=== PATIENT | female | born 1955 | race Caucasian/White ===

== ENCOUNTER → 2017-11-29 21:55 | Outpatient (CLI) | payer BC, SELFPAY ==
[2017-12-06 08:56] LABS: HPV APTIMA, High Risk Negative (Negative)
== END ==
PROVIDERS: Visit Provider Obstetrics & Gynecology
DX: Z12.4 Encounter for screening for malignant neoplasm of cervix (principal)
CPT/HCPCS: 88175; G0145

== ENCOUNTER → 2018-01-10 07:52 | Outpatient (CLI) | payer BC, SELFPAY | PROVIDERS: Family Provider Family Medicine; PCP Family Medicine; Visit Provider Obstetrics & Gynecology | DX: Z12.31 Encounter for screening mammogram for malignant neoplasm of breast (principal) | CPT/HCPCS: 77063; 77067 ==

== ENCOUNTER 2018-05-03 15:12 | Emergency (ER) | payer BC, SELFPAY ==
[2018-05-03 15:13] VITALS: BP 124/82; PULSE 87; RESP 16; TEMP 36.3; O2SAT 96; BMI 26.5
--- NOTE | 2018-05-03 15:27 | VDLE_ITS ---
Reason For Study: LEG PAIN RIGHT LEFT CFV is compressible, spontaneous, phasic, GSV is normal. competent and demonstrates normal CFV is compressible, spontaneous, phasic, augmentation. competent, and demonstrates normal Procedure augmentation. Exam performed portable in ED. FV is compressible, spontaneous, phasic, A preliminary report was called and/or faxed competent and demonstrates normal to Dr. Golden. augmentation. POP V is compressible, spontaneous, phasic, competent and demonstrates normal augmentation. T/P Trunk is compressible. PTV is compressible. Acute deep vein thrombosis is noted in the left peroneal vein. Interpretation Summary Left greater saphenous vein appears patent and compressible segmentally. Acute deep venous thrombosis left peroneal vein. No evidence for proximal progression. Normal flow patterns right common femoral vein Ordering Physician: Perico Golden Referring Physician: KARI Treviño M.D. Performed By: Anabella Sheikh RVT
--- NOTE | 2018-05-03 15:31 | ED.DCSUM_ITS ---
- ER Visit Summary Date of Service: 05/03/18 Chief Complaint: Chronic left calf pain History of Present Illness: The patient is a 62 F anxiety and osteoporosis. Patient underwent left shoulder arthroscopic and orthopedic surgery last on 1220. She is been doing well. Today develops any calf pain. She really does not notice any swelling. She denies any fever or redness. Patient denies any chest pain or shortness of breath. She has never had a DVT or PE before. Patient denies any trauma to the leg. Physical Examination: Well-appearing older female. Vital signs stable vitals afebrile. She does not look septic or toxic. She is in no acute distress. HEENT exam unremarkable. Neck nontender. Lungs clear to auscultation bilaterally. Heart regular rate and rhythm no murmur. Rate about 90. Abdomen soft nontender. Normal bowel sounds no peritoneal signs. Extremities moves all 4. Calves no edema. No cords. Mild tenderness to her left calf. DP pulse intact. Full range of motion to the left hip, knee and ankle. Left foot has 5 out of 5 dorsi plantar flexion. Normal sensation. Palpable DP pulse. Neurologically she is awake alert with no focal deficits. Test Results: Noninvasive study left lower extremity show a DVT left peroneal vein below the knee. Emergency Department Course and Treatment: I discussed with the patient and also with her orthopedic surgeon Dr. Krystle Ewing and she will be treated conservatively with 1 full dose aspirin a day. And follow-up ultrasounds. Patient is comfortable with that plan. Treatment Plan: Daily adult aspirin. And follow-up repeat serial ultrasounds. She has appointment with her orthopedic surgeon's office on Tuesday and she will call them tomorrow. Disposition: Discharge Impression: Left lower extremity calf pain secondary to a left peroneal vein below the knee DVT This note was generated with [employer] dictation software. It may contain incorrect words, spelling, and punctuation that were not noted in review of the chart prior to signing ED Disposition - Plan for ED Patient: Chief Complaint: Lower Extremity Injury Referrals: Kobe Treviño III, MD [Primary Care Provider] -
--- NOTE | 2018-05-03 17:05 | DCINST.ED_ITS ---
ED Disposition - Plan for ED Patient: Disposition: Home or Assisted Living Chief Complaint: Lower Extremity Injury Instructions: ED DVT Additional Instructions: Take 1 adult full dose aspirin 325 mg a day starting tomorrow. Call and follow-up with your orthopedic physician's office at the [facility] tomorrow. Return to the ER if chest pain or shortness of breath. They will need to do serial ultrasounds of your leg to see if this is improving or getting worse.
[2018-05-03] MEDS: Aspirin 325 MG Tablet PO (17:10)
== END 2018-05-03 17:17 | disposition home or self-care (01) ==
PROVIDERS: Emergency Provider Emergency Medicine; Family Provider Family Medicine; PCP Family Medicine
DX: I82.4Z2 Acute embolism and thrombosis of unspecified deep veins of left distal lower extremity (principal); M79.662 Pain in left lower leg; Z98.890 Other specified postprocedural states; F41.9 Anxiety disorder, unspecified; M81.0 Age-related osteoporosis without current pathological fracture; Z79.899 Other long term (current) drug therapy
CPT/HCPCS: 93971; 99283

== ENCOUNTER 2018-05-06 22:27 | Emergency (ER) | payer BC, SELFPAY ==
[2018-05-06 22:28] VITALS: BP 140/87; PULSE 97; RESP 20; TEMP 36.8; O2SAT 97; BMI 27.3
[2018-05-06 22:31] VITALS: PULSE 98; RESP 18; TEMP 36.8; O2SAT 99
--- NOTE | 2018-05-06 22:35 | EKG12_ITS ---
Test Reason : CP Blood Pressure : / mmHG Vent. Rate : 094 BPM Atrial Rate : 094 BPM P-R Int : 142 ms QRS Dur : 078 ms QT Int : 360 ms P-R-T Axes : 071 045 048 degrees QTc Int : 450 ms Sinus rhythm with occasional Premature ventricular complexes Otherwise normal ECG Confirmed by SACHI DURHAM, LINDSAY ([id number]), editor producer JV SCHULZ ([id number]) on 05/08/2018 12:47:33 PM Referred By: LESVIA Confirmed By:LINDSAY KARIMI MD
--- NOTE | 2018-05-06 22:35 | CT_ITS ---
STUDY: CTA CHEST REASON FOR EXAM: Female, 62 years old. Shortness of breath. Chest pain. Postop left shoulder surgery 1. No. Patient was diagnosed with left lower extremity DVT on 05/03/2018. Elevated blood pressure. History of melanoma. RADIATION DOSAGE (If Supplied By Facility): CTDIvol = ( 9.47 ) mGy, DLP = ( 442.51 ) mGycm TECHNIQUE: The examination was performed with the intravenous administration of 75ML ml of Isovue 370 contrast material. Post-processing of the angiographic images was performed, with multiplanar reformation, but without 3D reconstruction. Individualized dose optimization techniques were used for this CT. COMPARISON: None. FINDINGS: Normal enhancement of the main pulmonary artery and right and left pulmonary arteries. Normal enhancement of the bilateral peripheral pulmonary arteries. There are pulmonary emboli in bilateral lower lobe and upper lobe pulmonary arterial branches. There is no reflux of contrast enhanced blood into the inferior vena cava to suggest presence of right ventricular strain. Normal thoracic aorta and visualized great vessels. There is no demonstrated aortic dissection. Normal heart and pericardium. Normal mediastinum. Normal hilar regions. Normal visualized trachea and bronchi. The lungs are well expanded. There are minimal fibrotic changes in the lung apices and there is minimal fibrosis or atelectasis in the lung bases.. There are no demonstrated acute pulmonary infiltrates. As seen on series 2, axial image 100, there is a 3.3 mm noncalcified right lower lobe lung nodule. Normal pleura. Normal chest wall structures. There are degenerative changes of thoracic spine. There is a small hiatal hernia. CT/CTA Chest W/WO Contrast IMPRESSION: Bilateral lower lobe and upper lobe pulmonary emboli. No radiographic evidence for right ventricular strain. No evidence for aortic aneurysm or aortic dissection. No demonstrated acute pulmonary infiltrate. 3.3 mm noncalcified right lower lobe lung nodule. Based on Fleischner Society Guidelines, suggested follow-up for a lung nodule of less than or equal to 4 mm is as follows: Low risk patients: No follow-up needed. High risk patients: Follow-up CT Chest at 12 months. If no change, no further imaging needed. N.B. : The above information has been verbally conveyed by Aristides Atwood MD to Nurse AKASH Bell, on 05/07/2018 01:01:43 (ET). Electronically Signed: Aristides Atwood MD at 1:04 EST , Service support ,
--- NOTE | 2018-05-06 22:39 | ED.VISSUMM ---
- ER Visit Summary Date of Service: 05/06/18 Chief Complaint: Approximate 1 hour prior to presentation patient complains of a sensation in her chest and shortness of breath History of Present Illness: The patient is a 62 F who is status post arthroscopic left shoulder surgery who was seen on April 13 and diagnosed with a DVT left lower extremity. The DVT was in the left peroneal vein. She is scheduled for ultrasound on Tuesday to determine if there is propagation. He is on no anticoagulant. She is on no medication for any medical problems. She denies fever, chills night sweats. She denies any GI or symptoms. Physical Examination: Vital signs noted and blood pressure is elevated 140/87. Rest rate is 20. Heart rate is 97. Saturation is 97% on room air and temperature is 98.2. Patient appears in no respiratory distress. HEENT exam is unremarkable. Heart is regular without murmur, gallop or rub. S1 and S2 are normal. Lungs are clear to auscultation with good movement of air bilaterally. Abdomen is soft nontender. Bowel sounds are present normal. There is pain to palpation left calf. Neuro exam is nonfocal. Test Results: EKG reveals sinus rhythm rate of 94 with occasional premature ventricular beats. There is no evidence of right heart strain. Basic metabolic panel is unremarkable. CTA of the chest reveals bilateral segmental lobar embolus. Emergency Department Course and Treatment: IV was established. BMP was obtained to assess renal function since she has had no recent blood work. She will need a CTA to determine if she has a PE. EKG was obtained. Treatment Plan: Explained to the patient that there are more than 1 treatment options. She could administer Lovenox twice daily for 5 days and start Coumadin versus Xarelto versus Eliquis. She was explained risk benefits of each medication and advantages disadvantages. After explaining her the risk benefits and she elected to take Eliquis. She received her first dose of Eliquis in the department. She was given a prescription for Eliquis 10 mg twice daily for the first 7 days then [address] Hernan Noriega was made aware patient who is covering for Dr. Robert Ewing. Disposition: Discharged home with prescription for Eliquis follow-up with PCP Dr. Kobe Treviño III Impression: Bilateral pulmonary embolus status post left shoulder arthro-scopic surgery. This note was generated with Dragon dictation software. It may contain incorrect words, spelling, and punctuation that were not noted in review of the chart prior to signing ED Disposition - Plan for ED Patient: Disposition: Home or Assisted Living Chief Complaint: Chest Pain Instructions: Discharge Instructions for Pulmonary Embolism Prescriptions: Apixaban [Eliquis] 5 mg PO BID #74 tablet Referrals: Kobe Treviño III, MD [Primary Care Provider] - 1-2 Weeks
[2018-05-06 22:48] LABS: Absolute Lymphocyte Count 2.82 X10^3/ul (0.83-4.51); Absolute Neutrophil Count 3.7 X10^3/uL (2.0-7.7); Basophil# 0.03 X10^3/uL; Basophil% 0.4 % (0-1); Eosinophil# 0.32 X10^3/uL; Eosinophils% 4.3 % (0-5); Hematocrit 40.7 % (37-47); Hemoglobin 13.7 g/dl (12.0-15.0); Lymphocyte # 2.82 X10^3/ul (4.0); Lymphocyte % 37.7 % (19-41); Mean Corp Hgb Conc 33.7 g/gl (32-36); Mean Corpuscular Hgb 31.2 pg (27.0-32.0); Mean Corpuscular Volume 92.7 fL (81-99); Monocyte# 0.56 X10^3/uL; Monocyte% 7.5 % (0-10); Neutrophil # 3.74 X10^3/uL (2.7-7.7); POSITIVE COUNT NO; POSITIVE DIFFERENTIAL NO; POSITIVE MORPHOLOGY NO; Platelet Count 250 K/mm3 (150-450); RBC Distribution Width CV 12.8 % (11.6-14.6); RBC Distribution Width SD 43.1 fl (35.1-43.9); Red Blood Count 4.39 M/mm3 (4.2-5.4); White Blood Count 7.5 K/mm3 (4.4-11.0)
[2018-05-06 23:08] LABS: Anion Gap 7 (5-15); BUN 15 mg/dL (7-18); BUN/Creat Ratio 19.2 RATIO (10-20); Calcium,Total 8.9 mg/dL (8.5-10.1); Chloride 107 mmol/L (98-107); Creatinine, Serum 0.78 mg/dL (0.55-1.02); EST Glomerular Filtration Rate 80 mL/min (>60); Est Glom Filt Rate - Afr Amer 96 mL/min (>60); Estimated Creatinine Clearance 57.15 ml/min; Glucose 115 mg/dL (74-106); Potassium 3.7 mmol/L (3.5-5.1); Sodium Level 140 mmol/L (136-145)
[2018-05-06 23:31] VITALS: PULSE 94; TEMP 36.8
[2018-05-06] MEDS: APIXABAN 5 MG TABLET 10 MG PO (23:53)
[2018-05-07 00:56] VITALS: PULSE 90; RESP 18
--- NOTE | 2018-05-07 01:03 | ED.RN ---
Radiologist called with positive PE. Pt has been treated appropriately.
== END 2018-05-07 00:57 | disposition home or self-care (01) ==
PROVIDERS: Emergency Provider Emergency Medicine; Family Provider Family Medicine; PCP Family Medicine
DX: I26.99 Other pulmonary embolism without acute cor pulmonale (principal); Z86.718 Personal history of other venous thrombosis and embolism; Z98.890 Other specified postprocedural states; Z79.82 Long term (current) use of aspirin; Z79.899 Other long term (current) drug therapy
CPT/HCPCS: 71275; 80048; 85025; 93005; 99285; Q9967

== ENCOUNTER 2018-06-27 09:30 | Outpatient (RCR) | payer BC, SELFPAY ==
--- NOTE | 2018-05-15 17:51 | HP.PTEVAL_ITS ---
Patient's Visit Information JAYLEN BRENNER is a 62 year old F referred to Physical Therapy by Robert Ewing MD with a diagnosis of COMPLETE ROTATOR CUFF TEAR OR RUPTURE OF LEFT SHOULDER NOT SPECIFIED. Date of Evaluation: 05/15/18 Physical Therapist: Jatinder Wilson PT, Cert MDT, OCS - Visit Plan Frequency: 2x /Week Duration: 8WEEKS Plan: S/P ARTHROSPIC ,ACROMIOPLASY ,DECOMPRESSION ON 04/27. SEE PROTOCAL FOR PROGRESSON. PROGRESS MARLIN PHASE 1PROM,PHASE 2 AAROM ,PHASE 3 PER MD ORDER - Subjective Findings: This 62 y/o female presents to physical therapy with left shoulder arthrosopic subacromial decompression with acriomioplasty ,debridement on 04/27 at [facility] done Dr Ewing with sling .Patient developed DVT ,PE went to [facility] gave eliquis . Patient seen DR casiano to remove sling. Patient has min surekha n. Patient denies parathesia/tingling. Patient symptoms affect sleeping.Patient is able to drive Patient has limitation with all functional activities and ADL'S above 90 degrees impairs housework tasks, Patient surgery affect QOL and function. 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 SOCAIL: diveroced - Pain Left Shoulder Pain Intensity (Out of 10): 7 Pain Intensity Range: 10 Comment: movevment - Objective POSTURE: rounded shoulders head foward. PALAPTION: unremarkable. INSCION: well approximate. NEURO: intact,denies parathesia/tingling. PROM : shoulder flexion 140 degrees,abduction in scaption 145 degreess, ER 80 degrees,IR S1. MMT: NT SHOULDER ,BICEP/TRICP/WRIST 4/5 - Goals Goal 1:: Patient to be Indepenedant with HEP Goal Time Frame: 8-12 Weeks Goal 2:: Patient to improve AROM shoulder flexion 150 abduction 145 in scapation,ER 90 ,IR L1. to improve function. Goal Time Frame: 8-12 Weeks Goal 3:: Patient increase strength RTC 4/5 DELTOID 4-/5 to improve function ADL's and housework tasks Goal Time Frame: 8-12 Weeks Goal 4:: Patient to improve QUIC DASh SHAMIR score by 5-points to improve QOL. Goal Time Frame: 8-12 Weeks Goal 5:: Patient to improve ADLS' and housework tasks above 90 degrees with min limiations Goal Time Frame: 8-12 Weeks - Rehabilitation Potential Physical Therapy Diagnosis: This patient underwent s/p left shoulder arthroscopic glenohumeral debridement of undersurface RTC and subacromial decompression with acromioplasty with decrease ROM ,strength impairs funtion and ADL'S. Rehabilitation Potential: Good - Anticipated Interventions Patient/Client Instruction: Educate patient on: Condition, Plan of Care For the Purpose of:: To decrease pain, To improve nutrient delivery to tissue, To improve muscle performance and motor function, To improve ability to perform ADL's, To increase tolerance to activity/condition/position, To improve perfo rmance and independence with ADL's, To improve ability of physical actions for home/community/work/leisure, To improve health of tissue, To decrease soft tissue restriction, To increase flexibility/ROM, To improve ability to perform tasks related to life management Therapeutic Exercise to Include: Strength training, Postural training, Flexibilty training, Passive ROM, Active ROM Comment: PHAASE 1 ,PHASE 2 For the Purpose of:: To decrease pain, To increase ROM, To improve muscle performance and motor function, To improve ability to perform ADL's, To increase tolerance to activity/condition/position, To improve performance and independence with ADL's, To improve health of tissue, To decrease soft tissue restriction, To increase flexibility/ROM, To assume or resume ADL's, To improve ability to perform tasks related to life management Cryotherapy (ice pack, ice massage): Yes Thermo therapy (hot pack): Yes For the Purpose of:: To decrease swelling/inflammation, To improve health of tissue, To decrease soft tissue restriction Thank you for the opportunity to evaluate your patient. For Medicare and Medicare HMO plans, please review the plan of care and approve it. It will need to be FAXED BACK to us at [phone] for Medicare purposes. For Medicare only, by signing this I certify the plan of care. Please let me know if there are questions or concerns regarding this plan of care. Physician Signature: Date:
--- NOTE | 2018-08-16 11:09 | HP.PT.NRP ---
HP - Discharge Summary (1) - Patient Information JAYLEN BRENNER was seen in my office for initial evaluation on 05/15/18. The following Plan of Care was established for this patient: Initial Frequency: 2x /Week Initial Duration: 8WEEKS - Anticipated Interventions Patient/Client Instruction: Educate patient on: Condition, Plan of Care For the Purpose of:: To decrease pain, To improve nutrient delivery to tissue, To improve muscle performance and motor function, To improve ability to perform ADL's, To increase tolerance to activity/condition/position, To improve performance and independence with ADL's, To improve ability of physical actions for home/community/work/leisure, To improve health of tissue, To decrease soft tissue restriction, To increase flexibility/ROM, To improve ability to perform tasks related to life management Therapeutic Exercise to Include: Strength training, Postural training, Flexibilty training, Passive ROM, Active ROM For the Purpose of:: To decrease pain, To increase ROM, To improve muscle performance and motor function, To improve ability to perform ADL's, To increase tolerance to activity/condition/position, To improve performance and independence with ADL's, To improve health of tissue, To decrease soft tissue restriction, To increase flexibility/ROM, To assume or resume ADL's, To improve ability to perform tasks related to life management Cryotherapy (ice pack, ice massage): Yes Thermo therapy (hot pack): Yes For the Purpose of:: To decrease swelling/inflammation, To improve health of tissue, To decrease soft tissue restriction This patient was last seen in our office 06/27/18. Pertinent comments regarding their Physical therapy will appear below: Patient seen for PT for left shoulder surgery focusing on phase 1 PROM,progresses ed to phase 2,3 with strengthening. Patient doing well thus is d/c At this point I will be discontinuing this patient from physical therapy. I would be happy to see this patient again in the future if found appropriate by the physician. Thank you! Jatinder Wilson, PT, Cert MDT, OCS
== END 2018-06-27 19:00 | disposition home or self-care (01) ==
LOC: PT 09:30
PROVIDERS: Family Provider Family Medicine; PCP Family Medicine; Referring Provider Orthopaedic Surgery; Visit Provider Orthopaedic Surgery
DX: M75.122 Complete rotator cuff tear or rupture of left shoulder, not specified as traumatic (principal)
CPT/HCPCS: 97110; 97162

== ENCOUNTER → 2018-10-06 | Outpatient (CLI) | payer BC, SELFPAY ==
[2018-10-06 11:59] VITALS: BMI 27.3
== END | disposition home or self-care (01) ==
LOC: LABSPEC 13:28
PROVIDERS: Family Provider Family Medicine; PCP Family Medicine; Referring Provider Obstetrics & Gynecology; Visit Provider Obstetrics & Gynecology
DX: R39.15 Urgency of urination (principal)
CPT/HCPCS: 87086; 87088

== ENCOUNTER → 2018-11-01 | Outpatient (CLI) | payer OTHER, SELFPAY ==
[2018-10-06 11:59] VITALS: BMI 27.3
[2018-11-01 18:49] LABS: HIV - WCH Nonreactive (Nonreactive)
[2018-11-02 08:27] LABS: Hepatitis B Surface Antigen Nonreactive (Nonreactive)
== END | disposition home or self-care (01) ==
PROVIDERS: Family Provider Family Medicine; PCP Family Medicine; Referring Provider Urology; Visit Provider Urology
DX: Z00.00 Encounter for general adult medical examination without abnormal findings (principal)
CPT/HCPCS: 36415; 86703; 87340

== ENCOUNTER → 2019-01-15 | Outpatient (CLI) | payer BC, SELFPAY ==
[2018-10-06 11:59] VITALS: BMI 27.3
--- NOTE | 2019-01-15 07:07 | BI_ITS ---
MAMMOGRAPHY - BILATERAL SCREENING REASON FOR EXAM: Female, 63 years old. Routine annual screening examination. PERTINENT HISTORY: Non-contributory. History of bilateral breast biopsies. TECHNIQUE: Digital bilateral breast dalton (3D mammographic acquisition) in the CC and MLO projections. 2-D mediolateral oblique (MLO) and craniocaudad (CC) views of both breasts were obtained. CAD: Full Field Digital Mammography with Computer Added Detection was performed. COMPARISON: Comparison is made with prior study dated January 10, 2018. FINDINGS: Breast Composition: There are scattered areas of fibroglandular density. There are no dominant masses or suspicious calcifications. Stable well-defined 5.5 mm nodule in the deep mid medial portion of the left breast. This has appearance of a small lymph node. A tissue clip marker is also seen in the central medial portion of the left breast in the small nodule. No other significant abnormalities are identified. There has been no significant change since the prior study. BI/SCREEN MAMM (CAD) W/DALTON BILAT IMPRESSION: Stable bilateral screening mammogram. Yearly follow-up mammogram recommended. (A) ASSESSMENT CATEGORY: BIRADS Category 2: Benign. A letter regarding these results will be sent to the patient by the facility within 30 days. Approximately 10% of breast cancers are not detected by mammography. A normal mammogram should not delay biopsy of a clinically suspicious abnormality. [id number] Electronically Signed: Edward Huang, at 10:50 EDT , Service support ,
== END | disposition home or self-care (01) ==
PROVIDERS: Family Provider Family Medicine; PCP Family Medicine; Referring Provider Obstetrics & Gynecology; Visit Provider Obstetrics & Gynecology
DX: Z12.31 Encounter for screening mammogram for malignant neoplasm of breast (principal)
CPT/HCPCS: 77063; 77067

== ENCOUNTER → 2019-11-12 | Outpatient (CLI) | payer BC, SELFPAY ==
[2018-10-06 11:59] VITALS: BMI 27.3
== END | disposition home or self-care (01) ==
LOC: MTDU 18:00
PROVIDERS: PCP Family Medicine; Referring Provider Family Medicine; Visit Provider Family Medicine
DX: Z20.828 Contact with and (suspected) exposure to other viral communicable diseases (principal)
CPT/HCPCS: 87635; G2023; U0003

== ENCOUNTER → 2020-01-17 | Outpatient (CLI) | payer BC, SELFPAY ==
[2018-10-06 11:59] VITALS: BMI 27.3
[2019-12-27 08:37] VITALS: BMI 27.3
--- NOTE | 2020-01-17 07:01 | BI_ITS ---
MAMMOGRAPHY - BILATERAL SCREENING REASON FOR EXAM: Female, 64 years old. Routine annual screening examination. PERTINENT HISTORY: Non-contributory. Prior bilateral excisional breast biopsies. TECHNIQUE: Digital bilateral breast dalton (3D mammographic acquisition) in the CC and MLO projections. 2-D mediolateral oblique (MLO) and craniocaudad (CC) views of both breasts were obtained. CAD: Full Field Digital Mammography with Computer Added Detection was performed. COMPARISON: Comparison is made with prior study dated 01/15/2019 and 01/10/2018. FINDINGS: Breast Composition: There are scattered areas of fibroglandular density. There are no dominant masses or suspicious calcifications. A tissue clip marker is seen in the central medial aspect of the left breast. Stable 5.5 mm nodular density in the deep mid medial portion of the left breast. The central notch is seen within the. This most likely represents a small lymph node. No other significant abnormalities are identified. There has been no significant change since the prior study. BI/SCREEN MAMM (CAD) W/DALTON BILAT IMPRESSION: Stable bilateral screening mammogram. Yearly follow-up mammogram recommended. (A) ASSESSMENT CATEGORY: BIRADS Category 2: Benign. A letter regarding these results will be sent to the patient by the facility within 30 days. Approximately 10% of breast cancers are not detected by mammography. A normal mammogram should not delay biopsy of a clinically suspicious abnormality. [id number] Electronically Signed: Edward Huang, at 8:05 EDT , Service support ,
[2020-01-17 08:49] LABS: Cholesterol 180 mg/dL (200); Hemoglobin A1c 5.3 % (3.8-5.6); High Density Lipoprotein 71 mg/dL; Triglycerides 118 mg/dL; Very Low Density Lipoprotein 24 mg/dL (5-40)
== END | disposition home or self-care (01) ==
PROVIDERS: Obstetrics & Gynecology; PCP Family Medicine; Referring Provider Obstetrics & Gynecology; Visit Provider Obstetrics & Gynecology
DX: Z12.31 Encounter for screening mammogram for malignant neoplasm of breast (principal); Z01.419 Encounter for gynecological examination (general) (routine) without abnormal findings
CPT/HCPCS: 36415; 77063; 77067; 80061; 83036; 84443

== ENCOUNTER → 2020-02-04 | Outpatient (CLI) | payer BC, SELFPAY ==
[2020-02-04 09:38] VITALS: BMI 27.3
[2020-02-08 04:33] LABS: HPV APTIMA, High Risk Negative (Negative)
== END | disposition home or self-care (01) ==
LOC: LABSPEC 14:34
PROVIDERS: PCP Family Medicine; Referring Provider Obstetrics & Gynecology; Visit Provider Obstetrics & Gynecology
DX: Z12.4 Encounter for screening for malignant neoplasm of cervix (principal)
CPT/HCPCS: 87624; 88175; G0145

== ENCOUNTER → 2020-06-06 14:46 | Outpatient (CLI) | payer BC, SELFPAY ==
[2020-02-04 09:38] VITALS: BMI 27.3
--- NOTE | 2020-06-06 14:52 | US_ITS ---
STUDY: ULTRASOUND OF THE FEMALE PELVIS - COMPLETE REASON FOR EXAM: Female, 64 years old. RT PELVIC PAIN X 1 YEAR TECHNIQUE: Transabdominal TECHNICAL QUALITY: Adequate. COMPARISON: CT of the abdomen and pelvis dated 04/19/2017. FINDINGS: The uterus is retroflexed and is in a midline position. The uterus measures 6.5 x 2.7 x 3.8 cm. Normal uterine cervix. The endometrium measures 2.9 mm in thickness, and is hyperechoic. There is no demonstrated endometrial mass. There is no demonstrated myometrial mass. I.U.D. - The patient does not have an I.U.D. The ovaries are non-visualized. There is no fluid in the cul-de-sac. The pre void volume of the bladder was 333.6 ml. US/Pelvic (Non ) IMPRESSION: Nonvisualization of the ovaries. Within normal limits appearing uterus. Electronically Signed: Cheyenne Melo MD at 15:43 EST Tel , Service support ,
== END ==
PROVIDERS: PCP Family Medicine; Referring Provider Urology; Visit Provider Urology
DX: R10.2 Pelvic and perineal pain (principal)
CPT/HCPCS: 76856

== ENCOUNTER → 2021-02-06 07:38 | Outpatient (CLI) | payer BC, SELFPAY ==
[2020-02-04 09:38] VITALS: BMI 27.3
--- NOTE | 2021-02-06 07:39 | BI_ITS ---
MAMMOGRAPHY - BILATERAL SCREENING REASON FOR EXAM: Female, 65 years old. Routine annual screening examination. PERTINENT HISTORY: Non-contributory. Prior left ultrasound-guided breast biopsy. History of remote bilateral excisional breast biopsies. TECHNIQUE: Digital bilateral breast dalton (3D mammographic acquisition) in the CC and MLO projections. 2-D mediolateral oblique (MLO) and craniocaudad (CC) views of both breasts were obtained. CAD: Full Field Digital Mammography with Computer Added Detection was performed. COMPARISON: Comparison is made with prior study of 01/17/2020 and 01/15/2019. FINDINGS: Breast Composition: There are scattered areas of fibroglandular density. There are no dominant masses or suspicious calcifications. A tissue clip marker is once again seen in the central medial aspect of the left breast. Stable tiny density is seen at the biopsy site. Stable 5 mm well-defined nodule in the deep mid medial portion of the left breast suggestive of a small lymph node. Stable architectural distortion in the upper lateral portion of the right breast most likely at the site of prior excisional biopsy. No other significant abnormalities are identified. There has been no significant change since the prior study. BI/SCRN MAMM (CAD)W/DALTON BILAT IMPRESSION: Stable bilateral screening mammogram. Yearly follow-up mammogram recommended. (A) ASSESSMENT CATEGORY: BIRADS Category 2: Benign. A letter regarding these results will be sent to the patient by the facility within 30 days. Approximately 10% of breast cancers are not detected by mammography. A normal mammogram should not delay biopsy of a clinically suspicious abnormality. [id number] Electronically Signed: Edward Huang MD at 9:03 EDT , Service support ,
== END ==
PROVIDERS: PCP Family Medicine; Referring Provider Obstetrics & Gynecology; Visit Provider Obstetrics & Gynecology
DX: Z12.31 Encounter for screening mammogram for malignant neoplasm of breast (principal)
CPT/HCPCS: 77063; 77067

== ENCOUNTER 2021-07-22 06:25 | Day surgery (SDC) | payer MEDICARE, OTHER, SELFPAY ==
--- NOTE | 2021-07-22 | COLBX_PTH ---
PATIENT: JAYLEN BRENNER LOC: EN U#:[id number] AGE/SX: 66/F ROOM: RE07/22/[address]: Dr. Timi Mckinney DO : [id number] BED: DIS: 07/22/2021 SPEC #: [id number] RECD: 07/22/21 11:14 STATUS: TANYA RODRIGUEZ #: [id number] VENITA: 07/22/21 00:[address]: Timi Mckinney DEPT: SURGICAL PATHOLOGY RECD BY: Filipe Gibson ENTERED: 07/22/21 12:34 SP TYPE: COLON BX OTHR DR: Janee Ramirez, STUDIO DESIGNER-Sindi Tissues: Sigmoid colon biopsy Procedures: Surgery Specimen Level IV HEADER OPERATION: Colonoscopy (MAC), polypectomy PRE-OP DIAGNOSIS: Screening TISSUE SUBMITTED: Sigmoid polyp MICROSCOPIC DIAGNOSIS Sigmoid colon polyp, biopsy: Fragments of benign mucosal polyp. See comment. AM:nadiya 07/23/2021 COMMENT Neither hyperplastic nor adenomatous change is identified. Clinical correlation is suggested. MICROSCOPIC DESCRIPTION Slides are reviewed. GROSS DESCRIPTION Received in fixative is one container labeled with the patient's name and designated sigmoid polyp. The specimen consists of multiple irregular fragments of light herrera soft tissue that in aggregate measure 1 x 0.2 x 0.1 cm. The specimen is totally submitted in one cassette. / AM:nadiya 07/22/2021 TC:5 CPT: 15998
[2021-07-22 06:45] VITALS: BP 129/81; PULSE 96; RESP 18; TEMP 36.4; O2SAT 98; BMI 24.5
[2021-07-22] MEDS: Lactated Ringers 1,000 ML 15 ML IV (06:45)
--- NOTE | 2021-07-22 07:40 | PCM.HP.BLA ---
History and Physical Date of Admission: 07/22/21 JAYLEN BRENNER, is a 65 F who presents to the office today for an evaluation for screening colonoscopy. She had an attempted colonoscopy several years ago. She reports that previously she had a colonoscopy attempted, however she was reported to have a twisted bowel and they were not able to complete. She was never fully explained as to why this happened. Currently is due for screening colonoscopy and would like to have this cause explained to her and have this done prior to moving to [place] in a year. She is moving to be closer to her family. Last colonoscopy had no abnormal results. She then had a barium enema 07.05.10 finding a redundant sigmoid colon. She did have a double contrast barium enema the next day after that time to colonoscopy and it did not show any problems. On occasion she does get some intermittent abdominal pain. She denies any constipation or diarrhea. She denies any blood in her stool. She denies any tenesmus or incomplete evacuation. She has no family history of colon cancer. 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 ROS Const Constitutional: No anorexia, fatigue, fever(s), weight change or sleep problems Eyes Eyes: No change in vision ENT ENT: No abnormal hearing, difficulty swallowing, mouth lesions, tongue swelling or throat swelling Resp Respiratory: No cough or shortness of breath Cardio Cardiology: No chest pain at rest, chest pain with exertion, shortness of breath or dyspnea on exertion Gastro GI: No difficulty swallowing Genitourinary-Female: No difficulty urinating or burning urination Musc Musculoskeletal: No joint pain, joint swelling, muscle weakness or decreased muscle mass Skin Skin: No hair loss in leg, yellowing of the eye, itchy eyes, rash, skin ulcer or skin swelling Neuro Neurology: No abnormal hearing, abnormal movements, confusion, unsteady gait/balance or memory loss Psych Psychiatric: No anxiety, No confusion and No memory loss Endo Endocrine: No fatigue or weight change Aller/Imm Allergy/Immunologic: No itchy eyes, throat swelling or tongue swelling Bill/Lymp Hematologic/Lymphatic: No easy bleeding, easy bruising or enlarged lymph nodes Exam Const General: cooperative and comfortable Nutritional Appearance: average body habitus and well nourished HENMT Head: normal to inspection Ears: hearing grossly normal bilaterally Nose: external nose normal Face and sinus: normal facial exam Mouth: oral mucosae normal Throat: posterior oropharynx normal Eyes General: appearance normal, both eyes and all related structures Neck Neck: normal visual inspection Chest Chest palpation & inspection: normal inspection of the chest and normal palpation of entire chest wall Resp Effort & Inspection: normal respiratory effort Auscultation: Bilateral: Clear to Auscultation Cardio Palpation: normal PMI Rate: regular rate Rhythm: regular rhythm GI Inspection: normal to inspection Auscultation: normal bowel sounds Percussion: normal to percussion Palpation: no hepatosplenomegaly Skin General: no rashes or lesions noted Neuro General: patient alert Extrem General: normal to inspection Psych Affect: normal affect Quality Reporting Tobacco Screening ([facility]) Smoking Status: Never smoker Assessment and Plan Assessment and Plan (1) Encounter for screening colonoscopy: Status: Acute Plan - Dr. Capellan Friend, DO: She will undergo a screening colonoscopy. We went over in detail previous CT scan and it does show a dilated rectosigmoid area that likely contributed to her incomplete colonoscopy several years ago. She was explained alternatives, risk, benefits including not withstanding bleeding, infection, sepsis, perforation, need for emergent surgery . She will have an ASA of 1. I have re-examined the patient. There are no clinical changes since date of exam.
[2021-07-22 08:20] VITALS: BP 129/81; BP 92/61; PULSE 74; RESP 16; TEMP 36.1; O2SAT 99
--- NOTE | 2021-07-22 08:23 | OP.COLON_ITS ---
Patient Name: Elisa Cruz Procedure Date: 07/22/2021 7:37 AM Date of : 1955 Age: 66 Procedure: Colonoscopy Indications: Screening for colorectal malignant neoplasm Providers: Timi Mckinney DO Medicines: See the Anesthesia note for documentation of the administered medications Patient Profile: This is a 66 year old female. Refer to note in patient chart for documentation of history and physical. Last Colonoscopy: more than 10 years ago. Complications: No immediate complications. Procedure: Pre-Anesthesia Assessment: - Prior to the procedure, a History and Physical was performed, and patient medications and allergies were reviewed. The patient is competent. The risks and benefits of the procedure and the sedation options and risks were discussed with the patient. All questions were answered and informed consent was obtained. Patient identification and proposed procedure were verified by the physician in the pre-procedure area. Mental Status Examination: alert and oriented. Airway Examination: normal oropharyngeal airway and neck mobility. Respiratory Examination: clear to auscultation. CV Examination: normal. Prophylactic Antibiotics: The patient does not require prophylactic antibiotics. Prior Anticoagulants: The patient has taken no previous anticoagulant or antiplatelet agents. ASA Grade Assessment: II - A patient with mild systemic disease. After reviewing the risks and benefits, the patient was deemed in satisfactory condition to undergo the procedure. The anesthesia plan was to use moderate sedation / analgesia (conscious sedation). Immediately prior to administration of medications, the patient was re-assessed for adequacy to receive sedatives. The heart rate, respiratory rate, oxygen saturations, blood pressure, adequacy of pulmonary ventilation, and response to care were monitored throughout the procedure. The physical status of the patient was re-assessed after the procedure. After I obtained informed consent, the scope was passed under direct vision. Throughout the procedure, the patient's blood pressure, pulse, and oxygen saturations were monitored continuously. The Colonoscope was introduced through the anus and advanced to the terminal ileum. The colonoscopy was performed without difficulty. The patient tolerated the procedure well. The quality of the bowel preparation was good. Retroflexion was not performed in the rectum due to a very small rectal vault. Moderate Sedation: Moderate (conscious) sedation was administered by the endoscopy nurse and supervised by the endoscopist. The patient's oxygen saturation, heart rate, blood pressure and response to care were monitored. Total physician intraservice time was 15 minutes. Scope In: 7:50:35 AM Scope Withdrawal Time 0 hours 14 minutes 9 seconds Scope Out: 8:15:49 AM Total Procedure Duration Time 0 hours 25 minutes 14 seconds Findings: The perianal and digital rectal examinations were normal. A 5 mm polyp was found in the sigmoid colon. The polyp was sessile. The polyp was removed with a hot snare. Resection and retrieval were complete. Verification of patient identification for the specimen was done. Estimated blood loss was minimal. Impression: - One 5 mm polyp in the sigmoid colon, removed with a hot snare. Resected and retrieved. Recommendation: - Repeat colonoscopy in 5 years for surveillance. - Return to GI office. - Continue present medications. Procedure Code(s): --- Professional --- 66652, Colonoscopy, flexible; with removal of tumor(s), polyp(s), or other lesion(s) by snare technique 30273, 59, Moderate sedation services provided by the same physician or other qualified health rn medicare performing the diagnostic or therapeutic service that the sedation supports, requiring the presence of an independent trained observer to assist in the monitoring of the patient's level of consciousness and physiological status; initial 15 minutes of intraservice time, patient age 5 years or older CPT copyright 2017 [employer]. All rights reserved. The codes documented in this report are preliminary and upon child care leader review may be revised to meet current compliance requirements. Timi Mckinney DO 07/22/2021 8:22:09 AM This report has been signed electronically. Number of Addenda: 1 Note Initiated On: 07/22/2021 7:37 AM Addendum Number: 1 Addendum Date: 02/03/2022 6:28:44 AM MAC was used as sedation for this procedure. Timi Mckinney DO 02/03/2022 6:28:48 AM This report has been signed electronically.
[2021-07-22 08:25] VITALS: BP 129/81; BP 92/68; PULSE 74; RESP 16; O2SAT 98
[2021-07-22 08:30] VITALS: BP 107/72; BP 129/81; PULSE 69; RESP 16; O2SAT 98
[2021-07-22 08:35] VITALS: BP 107/69; BP 129/81; PULSE 69; RESP 16; TEMP 36.1; O2SAT 100
[2021-07-22 09:02] VITALS: BP 129/81
== END 2021-07-22 23:59 | disposition home or self-care (01) ==
LOC: EN 06:28 → AC 06:30
PROVIDERS: PCP Clinical Nurse Specialist; Referring Provider Clinical Nurse Specialist; Visit Provider Internal Medicine Gastroenterology
PROC: 0DJD8ZZ Inspection of Lower Intestinal Tract, Via Natural or Artificial Opening Endoscopic (ICD-10-PCS; CPT 45378; principal; 2021-07-22 07:25)
DX: Z12.11 Encounter for screening for malignant neoplasm of colon (principal); K63.5 Polyp of colon; Z86.718 Personal history of other venous thrombosis and embolism; Z79.899 Other long term (current) drug therapy
CPT/HCPCS: 45385; 88305; J7120; J2405

== ENCOUNTER → 2022-02-18 | Outpatient (CLI) | payer MEDICARE, OTHER, SELFPAY ==
--- NOTE | 2022-02-18 10:36 | BI_ITS ---
MAMMOGRAPHY - BILATERAL SCREENING REASON FOR EXAM: Female, 66 years old. Routine annual screening examination. PERTINENT HISTORY: Non-contributory. History of prior bilateral excisional breast biopsies. TECHNIQUE: Digital bilateral breast dalton (3D mammographic acquisition) in the CC and MLO projections. 2-D mediolateral oblique (MLO) and craniocaudad (CC) views of both breasts were obtained. CAD: Full Field Digital Mammography with Computer Added Detection was performed. COMPARISON: Comparison is made with prior study dated 02/06/2021 and 01/17/2020. FINDINGS: Breast Composition: There are scattered areas of fibroglandular density. There are no dominant masses or suspicious calcifications. A tissue clip marker is once again seen in the central medial aspect of the left breast. The previously seen 5 mm well-defined nodule in the deep mid medial portion of the left breast is not seen at this time. No other significant abnormalities are identified. BI/SCRN MAMM (CAD)W/DALTON BILAT IMPRESSION: Stable bilateral screening mammogram. Yearly follow-up mammogram recommended. (A) ASSESSMENT CATEGORY: BIRADS Category 2: Benign. A letter regarding these results will be sent to the patient by the facility within 30 days. Approximately 10% of breast cancers are not detected by mammography. A normal mammogram should not delay biopsy of a clinically suspicious abnormality. [id number] Electronically Signed: Edward Huang MD at 12:27 EDT ,
== END | disposition home or self-care (01) ==
LOC: OPBI 10:35
PROVIDERS: PCP Clinical Nurse Specialist; Visit Provider Obstetrics & Gynecology
DX: Z12.31 Encounter for screening mammogram for malignant neoplasm of breast (principal)
CPT/HCPCS: 77063; 77067

== ENCOUNTER → 2023-03-17 | Outpatient (CLI) | payer MEDICARE, OTHER, SELFPAY ==
--- NOTE | 2023-03-17 07:11 | BI_ITS ---
MAMMOGRAPHY - BILATERAL SCREENING REASON FOR EXAM: Female, 67 years old. Routine annual screening examination. PERTINENT HISTORY: Non-contributory. Prior bilateral excisional breast biopsies. TECHNIQUE: Digital bilateral breast dalton (3D mammographic acquisition) in the CC and MLO projections. 2-D mediolateral oblique (MLO) and craniocaudad (CC) views of both breasts were obtained. CAD: Full Field Digital Mammography with Computer Added Detection was performed. COMPARISON: Comparison is made with prior study dated February 18, 2022 and February 06, 2021. FINDINGS: Breast Composition: There are scattered areas of fibroglandular density. There are no dominant masses or suspicious calcifications. A tissue clip marker is seen in the central medial aspect of the left breast. Stable small benign-appearing bilateral axillary lymph nodes. No other significant abnormalities are identified. There has been no significant change since the prior study. BI/SCRN MAMM (CAD)W/DALTON BILAT IMPRESSION: Stable bilateral screening mammogram. Yearly follow-up mammogram recommended. (A) ASSESSMENT CATEGORY: BIRADS Category 2: Benign. A letter regarding these results will be sent to the patient by the facility within 30 days. Approximately 10% of breast cancers are not detected by mammography. A normal mammogram should not delay biopsy of a clinically suspicious abnormality. [id number] Electronically Signed: Edward Huang MD at 8:37 EST ,
== END | disposition home or self-care (01) ==
LOC: OPBI 07:10
PROVIDERS: Referring Provider Obstetrics & Gynecology; Visit Provider Obstetrics & Gynecology
DX: Z12.31 Encounter for screening mammogram for malignant neoplasm of breast (principal)
CPT/HCPCS: 77063; 77067

== ENCOUNTER → 2024-03-19 | Outpatient (CLI) | payer MEDICARE, OTHER, SELFPAY | END | disposition home or self-care (01) | LOC: OPBI 07:01 | PROVIDERS: Referring Provider Nurse Practitioner Women's Health; Visit Provider Nurse Practitioner Women's Health | DX: Z12.31 Encounter for screening mammogram for malignant neoplasm of breast (principal) | CPT/HCPCS: 77063; 77067 ==

== ENCOUNTER → 2025-04-15 | Outpatient (CLI) | payer MEDICARE, OTHER, SELFPAY ==
--- NOTE | 2025-04-15 07:15 | BI_ITS ---
EXAM: SCRN MAMM (CAD)W/DALTON BILAT DATE: 04/15/2025 CLINICAL HISTORY: F, Age 69 y/o , SCREENING FOR BREAST CANCER TECHNIQUE: Procedure Code: [id number] Modality: MG Procedure: SCRN MAMM (CAD)W/DALTON BILAT COMPARISON: Prior exam(s) dated 03/19/2024, 03/17/2023, and 02/18/2022. FINDINGS: TISSUE DENSITY: There are scattered areas of fibroglandular density. Bilateral Breast Mammographic Findings: Benign-appearing round calcifications are seen in both breast. A stable 4 mm nodular masslike density in the medial, far posterior aspect of the left breast is noted. BI/SCRN MAMM (CAD)W/DALTON BILAT IMPRESSION: Benign screening mammogram. OVERALL FINAL ASSESSMENT BI-RADS 2: BENIGN RECOMMENDATION: Routine annual follow-up in 1 Year Additional Recommendation none A letter with findings and recommendations will be mailed to the patient. Reading Location: [id number]
--- OUTSIDE RECORDS SUMMARY | 2025-04-15 07:17 | XMS RPT_ITS | CCD ---
Author Organization [facility] Care Team Providers Care Library Attendant Name Role Phone CONCHITA Santiago RN, Stacy A Unavailable Unavailabl shahab Santiago RN RN, Stacy A Unavailable Unavailabl shahab Santiago RN RN, Stacy A Unavailable Unavailabl e [place] OYSTER PREPARER, Milagro S Unavailable CONCHITA Santiago RN, Stacy A Unavailable Unavailabl shahab Santiago RN RN, Stacy A Unavailable Unavailabl e William OYSTER PREPARER, Milagro S Unavailable Pcp, No Primary Care Provider Unavailabl shahab Ramirez OYSTER PREPARER, OYSTER PREPARER-C Adrián Primary Care Provider James OYSTER PREPARER, OYSTER PREPARER-C Adrián Referring Provider Dr. Namrata Huitron Attending Provider Becki Garcia MD Primary Care Provider Becki Garcia MD Primary Care Provider Ramirez OYSTER PREPARER, OYSTER PREPARER-C Adrián Referring Provider [place] OYSTER PREPARER, OYSTER PREPARER-C Milagro Attending Provider BECKI GARCIA Primary Care Provider UnavailBecki Dawson MD Primary Care Provider Greer DURHAM, PhD, Alfredo Primary Care Provider Katiana DURHAM, Omar Rondon Primary Care Provider Hudson PIERCE MD, Jagruti Arevalo Primary Care Provider Giovanna vailable William OYSTER PREPARER, Milagro Attending Unavailable William OYSTER PREPARER, Milagro Referring Unavailable EL GHOUL, RAWAD Primary Care Unavailable EL GHOUL, RAWAD Primary Care Unavailable EL GHOUL, RAWAD Referring Unavailable Rajiv Campamen Attending Unavailable Omar Saab MD Primary Care Provider OMAR SAAB Primary Care Unavailable OMAR SAAB Primary Care Unavailable SELF, SELF Referring Unavailable DIMA ALANIZ Attending Unavailable DIMA ALANIZ Attending Unavailable DIMA ALANIZ Referring Unavailable OMAR SAAB Primary Care Unavailable SELF, SELF Referring Unavailable ORESTES GILL Attending Unavail able OMAR SAAB Primary Care Unavailable EN DIXON Attending Unavailable EN DIXON Referring Unavailable OMAR SAAB Primary Care Unavailable SELF, SELF Referring Unavailable ORESTES GILL Attending Unavail able OMAR SAAB Primary Care Unavailable Allergies Allergy Classification Reported Allergen(s) Allergy Type Date of Onset Reaction(s) Facility (20 sources) Morphine Drug Allergy 5 Itching [facility] (20 sources) short ragweed pollen extract Drug Allergy 3 Itchy Throat, Sneezing [facility] (7 sources) Famotidine Propensity to adverse reactions to drug 4 Rash [facility] (1 source) Morphine Drug Allergy 4 [facility] Repository Medications Current Medications Medication Drug Class(es) Dates Sig (Normalized) Sig (Original) alendronic acid 70 mg oral tablet (13 sources) Bisphosphonate Start: 06-10-2024 take 1 tablet by mouth every week alendronate 70 MG tablet Indications: Age related osteoporosis, unspecified pathological fracture presence Take 1 tablet by mouth once a week. 12 tablet 4 06/10/2024 Active Start: 03-28-2024 take 1 tablet by rosalinda th every week alendronate 70 MG tablet Indications: Age related osteoporosis, unspecified pathological fracture presence TAKE 1 TABLET BY MOUTH ONE TIME PER WEEK 12 tablet 4 03/28/2024 Active Start: 02-18-2023 alendronate 70 MG tablet Indications: Age related osteoporosis, unspecified pathological fracture presence Take 1 tablet by mouth every 7 days. 12 tablet 4 02/18/2023 Active Biotin (2 sources) take 5000 ug by mouth once daily BIOTIN ORAL Take 5,000 mcg by mouth once daily. Active take 5000 ug by mouth once daily BIOTIN ORAL Take 5,000 mcg by mouth once daily. 0 Active Comment on above: Take 5,000 mcg by mo [facility] once daily. cholecalciferol 0.05 mg oral capsule (5 sources) Vitamin D Start: 0 take 50 ug by mouth once daily Cholecalciferol (Vitamin D3) Active 50 MCG PO DAILY February 03, 2020 11:00pm Start: 08-15-2015 Cholecalcifero l, Vitamin D3, 3,000 unit tab Take by mouth. 0 08/15/2015 Active take 1 tablet by rosalinda once daily Cholecalciferol 25 MCG (1000 UT) tablet Take 1 tablet by mouth daily. Active Comment on above: Take by mouth. diclofenac sodium 75 mg delayed release oral tablet (6 sources) Nonsteroidal Anti-inflammatory Drug Start: take 1 tablet by mouth twice daily diclofenac EC [address] tablet Indications: Right knee pain, unspecified chronicity Take 1 tablet by mouth 2 times daily. 60 tablet 1 03/07/2025 Active Start: 05-19-2024 End: 03-07-2025 Diclofenac sodium (Voltaren) 1 % Gel gel Apply 2 g topically 4 times daily. 100 g 05/19/2024 03/07/2025 Discontinued gabapentin 300 mg oral capsule (6 sources) Anti-epileptic Agent Start: 10-14-2023 End: 12-13-2023 take 1 capsule by mouth at bedtime Gabapentin 300 MG capsule Take 1 capsule by mouth at bedtime. 30 capsule 1 10/14/2023 Active HERBAL PRODUCT (1 source) HERBAL PRODUCT Replace this text with the name of the herbal product Active Loratadine (2 sources) LORATADINE (CLARITIN ORAL) Take by mouth as needed. Active LORATADINE (CLAR ITIN ORAL) Take by mouth as needed. 0 Active Comment on above: Take by mouth as nee ded. magnesium oxide 250 mg oral tablet (2 sources) Start: 02-04-20 take 250 mg by mouth once daily Magnesium Oxide Active 250 MG PO DAILY February 03, 2020 11:00pm metroNIDAZOLE 0.0075 mg/mg topical gel (20 sources) Nitroimidazole Antimicrobial Start: 10-05-19 metroNIDAZOLE 0.75 % Gel APPLY TO FACE TWICE DAILY NEEDED FOR ROSACEA 45 g 10/04/2024 Active Start: 01-30-2024 metroNIDAZOLE 0.75 % Gel Apply to face twice daily as needed for Rosacea 45 g 01/30/2024 Active Start: 05-06-2022 End: 01-30-2024 metroNIDAZOLE 0.75 % Gel NANCY LY A THIN LAYER TO THE FULL FACE TWICE A DAY 05/06/2022 01/30/2024 Discontinued (Alternate therapy) MULTIVITAMIN ORAL (2 sources) take 1 tablet by rosalinda th once daily MULTIVITAMIN ORAL Take 1 tablet by mouth once daily. Active take 1 tablet by mouth once ayo y MULTIVITAMIN ORAL Take 1 tablet by mouth once daily. 0 Active Comment on above: Take 1 tablet by rosalinda th once daily. naproxen 500 mg oral tablet (3 sources) Nonsteroidal Anti-inflammatory Drug Start: 12-28-19 25 take 1 tablet by mouth twice daily as needed for pain Naproxen 500 MG tablet Take 1 tablet by mouth 2 times daily as needed for Mild Pain for up to 14 days. 28 tablet 12/27/2024 Active nirmatrelvir tablet 150 mg and ritonavir tablet 100 mg in a dose pack (PAXLOVID) (1 source) Start: 12-03-19 End: 12-08-19 22 nirmatrelvir tablet 150 mg and ritonavir tablet 100 mg in a dose pack (PAXLOVID) Indications: COVID-19 Administer TWO pink nirmatrelvir 150 mg tablets and ONE white ritonavir 100 mg tablet for a total of three tablets twice daily. 30 tablet 0 12/02/2021 12/07/2021 Active Comment on above: Administer TWO pink nirmatrelvir 150 mg tablets and ONE white ritonavir 100 mg tablet for a total of three tablets twice daily. omeprazole 40 mg delayed release oral capsule (7 sources) Proton Pump Inhibitor Start: 01-30-20 24 take 1 capsule by mouth once daily omeprazole [address] capsule Take 1 capsule by mouth daily. 90 capsule 1 01/30/2024 Active sodium fluoride 0.011 mg/mg toothpaste (19 sources) Start: 05-17-19 23 Sodium Fluoride 5000 PPM 1.1 % Paste paste BRUSH ONCE DAILY 05/17/2022 Active traZODone hydrochloride 50 mg oral tablet (20 sources) Serotonin Reuptake Inhibitor Start: 07-25-19 25 take 1 tablet by mouth once daily traZODone 50 MG tablet TAKE 1 TABLET BY MOUTH EVERY DAY 90 tablet 3 07/24/2024 Active Start: 10-14-2023 take 1 tablet by rosalinda th once daily traZODone 50 MG tablet Take 1 tablet by mouth daily. 90 tablet 3 10/14/2023 Active Start: 04-11-2022 End: 10-14-2023 take 0.5 tablet by mouth once daily traZODone 50 MG tablet Take 0.5 tablets by mouth daily. 04/11/2022 10/14/2023 Discontinued (Reorder) Start: 04-11-2022 take 1 tablet by rosalinda th once daily traZODone 50 MG tablet Take 1 tablet by mouth daily. 04/11/2022 Active Start: 02-18-2022 End: 02-18-2022 take 1 tablet by mouth once daily traZODone 50 MG tablet Take 1 tablet by mouth daily. 0 04/11/2022 Active Start: 06-04-2021 take 1 tablet by rosalinda th once daily at bedtime traZODone (DESYREL) 50 mg tablet Indications: Generalized anxiety disorder , Insomnia secondary to anxiety , Chronic prescription benzodiazepine use Take 1 tablet by mouth daily at bedtime. 30 tablet 5 06/04/2021 Active Comment on above: Take 1 tablet by rosalinda th daily at bedtime. Completed/Discontinued Medications Medication Drug Class(es) Dates Sig (Normalized) Sig (Original) apixaban 5 mg oral tablet (2 sources) Factor Xa Inhibitor Start: 05-06-2018 End: 02-04-2020 take 10 mg by mouth twice daily, then take 5 mg by mouth twice daily Apixaban Discontinued 5 MG PO TWICE A DAY 74 May 06, 2018 12:00am February 04, 2020 7:57am 10 mg twice a day for the first week. Then 5 mg twice a day. aspirin 325 mg delayed release oral tablet (2 sources) Platelet Aggregation Inhibitor, Nonsteroidal Anti-inflammatory Drug Start: 05-06-2018 End: 02-04-2020 take 325 mg by mouth once daily Aspirin Discontinued 325 MG PO DAILY May 06, 2018 12:00am February 04, 2020 7:57am azelaic acid 0.15 mg/mg topical gel (13 sources) Start: 06-07-2022 End: 01-30-2024 Azelaic Acid 15 % Gel 06/07/2022 01/30/2024 Discontinued (Alternate therapy) 5 ml bupivacaine hydrochloride 2.5 mg/ml injection (2 sources) Amide Local Anesthetic Start: 01-04-2023 End: 01-04-2023 Bupivacaine (PF) (MARCAINE) 0.25 % injection 1 mL ciprofloxacin 500 mg oral tablet (8 sources) Quinolone Antimicrobial Start: 01-03-2017 End: 01-10-2017 take 1 tablet by mouth twice daily CIPROFLOXACIN HCL 500 MG TABS One tablet by mouth twice daily CIPROFLOXACIN HCL [id number] Milagroaydin [place] OYSTER PREPARER cranberry preparation 200 mg oral capsule (1 source) Non-Standardized Food Allergenic Extract, Non-Standardized Plant Allergenic Extract End: 06-04-2021 Cranberry Extract (ELLURA) 200 mg cap Take 36 mg by mouth once daily. 06/04/2021 Discontinued estradiol 2 mg oral tablet (8 sources) Estrogen Start: 01-03-2017 ESTRING 2 MG RING once every 3 months ESTRADIOL [id number] Milagro Thomas OYSTER PREPARER Start: 01-03-2017 ESTRING 2 MG R ING once every 3 months ESTRADIOL [id number] Milagro Thomas OYSTER PREPARER ASPEN PRIMROSE/LINOLEIC/GAMOLENI (PRIMROSE OIL ORAL) (1 source) End: 06-04-2021 take 1300 mg by mouth once daily ASPEN PRIMROSE/LINOLEIC/GAMOLENI (PRIMROSE OIL ORAL) Take 1,300 mg by mouth once daily. 06/04/2021 Discontinued famotidine 40 mg oral tablet (1 source) Histamine-2 Receptor Antagonist Start: 11-18-2023 End: 01-31-2024 take 1 tablet by mouth twice daily as needed famotidine 40 MG tablet TAKE 1 TABLET BY MOUTH TWICE A DAY NEEDED 180 tablet 3 11/18/2023 01/31/2024 Discontinued (Side effects) hyoscyamine sulfate 0.12 mg / methenamine 81.6 mg / methylene blue 10.8 mg / sodium phosphate, monobasic 40.8 mg oral tablet (2 sources) Oxidation-Re duction Agent Start: 02-04-2020 End: 02-18-2022 Methen-Sod Phos-Meth Blue-Hyos (Urogesic-Blue) 81.6-40.8-0.12 mg tablet Discontinued 1 TABLET PO NEEDED February 03, 2020 11:00pm February 18, 2022 2:50pm administer with plenty of fluids 10 ml lidocaine hydrochloride 10 mg/ml injection (2 sources) Antiarrhythm ic, Amide Local Anesthetic Start: 01-04-2023 End: 01-04-2023 Lidocaine 1% (PF) (XYLOCAINE MPF) 1 % injection 2 mL LORazepam 0.5 mg oral tablet (4 sources) Benzodiazepi ne Start: 06-04-2021 End: 12-02-2021 take 1 tablet by mouth once daily at bedtime LORazepam (ATIVAN) 0.5 mg Indications: Generalized anxiety disorder , Insomnia secondary to anxiety , Chronic prescription benzodiazepine use Take 1 tablet by mouth daily at bedtime for 180 days. 30 tablet 5 06/04/2021 12/02/2021 Discontinued Start: 02-27-2020 End: 04-28-2020 LORazepam (ATIVAN) 1 mg tabl et Indications: Generalized anxiety disorder , Insomnia secondary to anxiety TAKE 1/2 TABLET BY MOUTH EVERY DAY NEEDED FOR ANXIETY Do not start before February 27, 2020. 30 tablet 02/27/2020 04/28/2020 Discontinued Start: 08-12-2017 End: 02-18-2022 take 0.5 mg by mouth every four hours Lorazepam Discontinued 0.5 MG PO Q4H August 11, 2017 11:00pm February 18, 2022 2:50pm Comment on above: Take 1 tablet by rosalinda th daily at bedtime for 180 days. meloxicam 15 mg oral tablet (3 sources) Nonsteroidal Anti-inflammatory Drug Start: 5 End: 5 take 1 tablet by mouth once daily Meloxicam 15 MG tablet Take 1 tablet by mouth daily. 30 tablet 2 01/23/2025 03/07/2025 Discontinued methen/mblue/yamile/so d phos/hyos ([id number].[id number] G-[id number] ORAL) (2 sources) End: methen/mblue/yamile/sod phos/hyos ([id number]-ZTCTP-C.BLUE- YAMILE-NAPHOS ORAL) Take by mouth. 12/02/2021 Discontinued End: 12-02-2021 methen/mblue/yamile/sod phos/hy os ([id number].GPQB-ZLV-[id number] ORAL) Take by mouth. 0 12/02/2021 Discontinued Comment on above: Take by mouth. methenam/sod phos/mblue/hyoscy (UROGESIC-BLUE ORAL) (2 sources) End: 12-02-2021 take 1 tablet by mouth twice daily methenam/sod phos/mblue/hyoscy (UROGESIC-BLUE ORAL) Take 1 tablet by mouth twice daily. 12/02/2021 Discontinued End: 12-02-2021 take 1 tablet by mouth twice daily methenam/sod phos/mblue/hyoscy (UROGESIC-BLUE ORAL) Take 1 tablet by mouth twice daily. 0 12/02/2021 Discontinued Comment on above: Take 1 tablet by rosalinda th twice daily. 1 ml methylPREDNISolone acetate 40 mg/ml injection (2 sources) Corticosteroid Start: 01-24-20 End: 01-24-20 methylPREDNISolone acetate (DEPO-MEDROL) injection 40 mg Start: 01-23-2025 End: 01-23-2025 40 mg, Intra-articular, ONCE NEEDED, 1 dose, Starting on Tue01/23/25 at 1220, Until Tue01/23/25 at 1220 ospemifene 60 mg oral tablet (2 sources) Start: 11-29-2017 End: 02-04-2020 take 1 tablet by mouth once daily at mealtime Ospemifene (Osphena) 60 mg tablet Discontinued 60 MG PO daily November 28, 2017 11:00pm February 04, 2020 7:57am give with food (meal/snack) pantoprazole 40 mg delayed release oral tablet (1 source) Proton Pump Inhibitor Start: 08-18-2018 End: 06-04-2021 take 1 tablet by mouth once daily pantoprazole DR (PROTONIX) 40 mg tablet Take 40 mg by mouth once daily. 08/18/2018 06/04/2021 Discontinued 200 ml ropivacaine hydrochloride 2 mg/ml injection (2 sources) Amide Local Anesthetic Start: 01-23-2025 End: 01-23-2025 ROPivacaine (NAROPIN) 0.2% injection 4 mL Start: 01-23-2025 End: 01-23-2025 4 mL, Intra-articular, ONCE NEEDED, 1 dose, Starting on Tue01/23/25 at 1220, Until Tue01/23/25 at 1220 SULFAMETHOXAZOLE-TRIMETHOPRI M (18 sources) Dihydrofolate Reductase Inhibitor Antibacterial, Sulfonamide Antimicrobial Start: 12-23-2016 End: 01-03-2017 take 1 tablet by mouth twice daily BACTRIM DS 800-160 MG TABS One tablet by mouth twice daily x 3 days SULFAMETHOXAZOLE-TRIMETHOPRIM [id number] Milagro Thomas NP Start: 12-23-2016 End: 01-03-2017 take 1 tablet by mouth twice daily BACTRIM DS 800-160 MG TABS One tablet by mouth twice daily x 3 days SULFAMETHOXAZOLE-TRIMETHOPRIM [id number] Namrata Huitron MD Start: 12-23-2016 take 1 tablet by rosalinda th twice daily BACTRIM DS 800-160 MG TABS One tablet by mouth twice daily x 3 days SULFAMETHOXAZOLE-TRIMETHOPRIM [id number] Namrata Huitron MD TRAZODONE & DIET MANAGE PROD PO (12 sources) Start: 11-05-2021 End: 10-14-2023 TRAZODONE & DIET MANAGE PROD PO 11/05/2021 10/14/2023 Discontinued (Duplicate (suppress cancel msg)) Start: 11-05-2021 TRAZODONE & DI ET MANAGE PROD PO 11/05/2021 Active Start: 11-05-2021 TRAZODONE & DI ET MANAGE PROD PO 1 ml triamcinolone acetonide 40 mg/ml injection (2 sources) Corticosteroid Start: 01-04-2023 End: 01-04-2023 triamcinolone (KENALOG-40) injection 40 mg Problems Active Problems Problem Classification Problem Date Documented Date Episodic/Chronic Anxiety disorders (20 sources) Generalized anxiety disorder; Translations: [Generalized anxiety disorder] Onset: 06-01-2006 06-01-2006 Chronic Digestive congenital anomalies (18 sources) Congenital redundant colon; Translations: [Other specified congenital malformations of intestine] Onset: 01-30-2016 01-30-2016 Chronic Esophageal disorders (20 sources) Gastroesophageal reflux disease; Translations: [Gastro-esophageal reflux disease without esophagitis] Onset: 04-09-2005 04-09-2005 Chronic Immunizations and screening for infectious disease (2 sources) Viral screening status; Translations: [Encounter for screening for other viral diseases] 10-13-2023 Episodic Melanomas of skin (10 sources) Malignant melanoma; Translations: [Malignant melanoma of skin, unspecified] Onset: 10-14-2023 Chronic Menopausal disorders (14 sources) Atrophic vaginitis; Translations: [Atrophy of vagina] Onset: 01-03-2017 01-03-2017 Chronic Nonmalignant breast conditions (18 sources) Fibrocystic disease of breast; Translations: [Diffuse cystic mastopathy of unspecified breast] Onset: 09-02-2003 09-02-2003 Chronic Nonspecific chest pain (1 source) Chest pain; Translations: [Other chest pain] 02-14-2020 Episodic Nutritional deficiencies (20 sources) Vitamin D deficiency; Translations: [Vitamin D deficiency, unspecified] Onset: 10-20-2017 10-20-2017 Chronic Osteoarthritis (20 sources) Osteoarthritis of knee; Translations: [Unilateral primary osteoarthritis, unspecified knee] Onset: 02-26-2013 02-26-2013 Chronic Osteoporosis (20 sources) Senile osteoporosis; Translations: [Age-related osteoporosis without current pathological fracture] Onset: 02-20-2023 02-18-2023 Chronic Other and unspecified benign neoplasm (1 source) Polyp of ascending colon; Translations: [Polyp of colon] Episodic Other connective tissue disease (2 sources) Myofascial pain; Translations: [Myalgia, other site] 12-10-2022 Episodic Other connective tissue disease (1 source) Pain of toes of bilateral feet; Translations: [Pain in right toe(s)] 01-30-2024 Episodic Other diseases of bladder and urethra (18 sources) Overactive bladder; Translations: [Overactive bladder] Onset: 02-14-2020 02-14-2020 Chronic Other injuries and conditions due to external causes (1 source) Contusion; Translations: [Other injury of unspecified body region, initial encounter] Episodic Other non-traumatic joint disorders (1 source) Joint stiffness; Translations: [Stiffness of unspecified joint, not elsewhere classified] 01-30-2024 Episodic Other non-traumatic joint disorders (5 sources) Pain in right knee; Translations: [Pain in joint, lower leg] Onset: 03-07-2025 01-23-2025 Episodic Other screening for suspected conditions (not mental disorders or infectious disease) (13 sources) Patient encounter status; Translations: [Encounter for screening for malignant neoplasm of colon] Onset: 04-16-2024 Episodic Other skin disorders (1 source) Trachyonychia; Translations: [Nail dystrophy] Episodic Other skin disorders (1 source) Rash and other nonspecific skin eruption; Translations: [Rash and other nonspecific skin eruption] 01-30-2024 Episodic Residual codes; unclassified (2 sources) Insomnia; Translations: [Insomnia, unspecified] 11-29-2017 Episodic Spondylosis; intervertebral disc disorders; other back problems (20 sources) Cervical spondylosis; Translations: [Spondylosis without myelopathy or radiculopathy, cervical region] Onset: 12-05-2009 12-05-2009 Chronic Spondylosis; intervertebral disc disorders; other back problems (9 sources) Neck pain; Translations: [Cervicalgia] Episodic Unclassified (3 sources) Right knee pain, unspecified chronicity 01-23-2025 Viral infection (1 source) Disease caused by 2019-nCoV; Translations: [COVID-19] Episodic Past or Other Problems Problem Classification Problem Date Documented Da te Episodic/Chronic Abdominal pain (11 sources) Right upper quadrant pain; Translations: [Right upper quadrant pain] Onset: 07-24-2023 07-24-2023 Episodic Genitourinary symptoms and ill-defined conditions (20 sources) Dysuria; Translations: [Blood in urine] Onset: 02-15-2014 12-23-2016 Episodic Melanomas of skin (3 sources) History of melanoma in situ of skin; Translations: [Personal history of melanoma in-situ] Onset: 08-15-2015 08-15-2015 Episodic Mood disorders (20 sources) Mood disorders Onset: 06-22-2022 Resolved: 06-22-2022 06-22-2022 Neoplasms of unspecified nature or uncertain behavior (10 sources) Neoplasm of uncertain behavior of skin; Translations: [Neoplasm of uncertain behavior of skin] 02-18-2011 Episodic Other aftercare (2 sources) Long-term current use of anticoagulant; Translations: [salvage determiner (current) use of anticoagulants] Onset: 05-19-2018 05-19-2018 Episodic Other and unspecified benign neoplasm (17 sources) Hemangioma of skin; Translations: [Skin - benign mole and nevus] Onset: 02-18-2011 02-18-2011 Episodic Other and unspecified benign neoplasm (3 sources) Skin - benign mole and nevus; Translations: [Other benign neoplasm of skin, unspecified] Onset: 02-18-2011 02-18-2011 Episodic Other connective tissue disease (12 sources) Decrease in height; Translations: [Loss of height] Onset: 02-20-2023 02-20-2023 Episodic Other lower respiratory disease (19 sources) Solitary nodule of lung; Translations: [Solitary pulmonary nodule] Onset: 05-15-2018 Resolved: 10-14-2023 05-15-2018 Episodic Other nervous system disorders (8 sources) Burning sensation of vagina; Translations: [Pelvic and perineal pain] Onset: 01-03-2017 01-03-2017 Episodic Other skin disorders (10 sources) Senile hyperkeratosis; Translations: [Inflamed seborrheic keratosis] Onset: 02-18-2011 02-18-2011 Episodic Phlebitis; thrombophlebitis and thromboembolism (20 sources) Deep venous thrombosis of peroneal vein; Translations: [Acute embolism and thrombosis of left peroneal vein] Onset: 05-04-2018 Resolved: 10-14-2023 05-04-2018 Episodic Pulmonary heart disease (18 sources) Acute pulmonary embolism; Translations: [Other pulmonary embolism without acute cor pulmonale] Onset: 05-08-2018 Resolved: 10-14-2023 05-08-2018 Episodic Residual codes; unclassified (3 sources) Family history of multiple myeloma; Translations: [Family history of other malignant neoplasms of lymphoid, hematopoietic and related tissues] Onset: 10-29-2014 10-29-2014 Episodic Residual codes; unclassified (20 sources) FH: Blood disorder; Translations: [Family history of diseases of the blood and blood-forming organs and certain disorders involving the immune mechanism] Onset: 06-23-2022 06-23-2022 Episodic Sprains and strains (3 sources) Sprain of lateral collateral ligament of left knee, initial encounter; Translations: [Sprain of lateral collateral ligament of knee] Onset: 05-19-2024 05-19-2024 Episodic Urinary tract infections (8 sources) Recurrent urinary tract infection; Translations: [Urinary tract infection, site not specified] Onset: 01-03-2017 01-03-2017 Episodic Results Test Name Value Interpretation Reference Range Facility LARGE JOINT/BURSA INJECTION AND/OR ASPIRATION: R kneeon 01-23-2025 Orestes Gill PA-C 01/23/2025 2:13 PM LARGE JOINT/BURSA INJECTION AND/OR ASPIRATION: R knee Date/Time: 01/23/2025 12:20 PM Performed by: Orestes Gill PA-C Authorized by: Orestes Gill PA-C Supporting Documentation Indications: pain, joint swelling and osteoarthritis Procedure Details: Location: knee - R knee Local Anesthetic: ethyl chloride (cold spray) Needle size: 21 G Approach: anterolateral Medication Verification: I have personally verified and performed the final check of the medication(s) used in this procedure prior to administration. The following items were included during the verification process for medication(s) administered: drug name, strength, volume, expiration, physical integrity and appearance of the medication(s). Medications administered: 4 mL ROPivacaine 0.2%; 40 mg methylPREDNISolone acetate 40 MG/ML Patient tolerance: patient tolerated the procedure well with no immediate complications Consent: Consent was obtained prior to the procedure after discussion of the risks, benefits and alternatives, and expected outcomes were discussed with the patient. The possibilities of reaction to medication, bleeding, infection, the need for additional procedures, failure to diagnosis a condition, and creating a complication requiring operation were discussed with the patient. The patient concurred with the proposed plan, giving consent. Timeout: Immediately prior to procedure a time out was called to verify the correct patient, procedure, medication(s) and site/laterality as required. The patient was prepped with alcohol and Chloraprep. [facility] Radiology Study observation (narrative) [facility] XR KNEE RIGHT 3+ VIEWS W/ BI LATERAL STANDING 1 VIEWon 01-23-2025 XR KNEE RIGHT 3+ VIEWS W/ BILATERAL STANDING 1 VIEW EXAM: XR KNEE RIGHT 3+ VIEWS W/ BILATERAL STANDING 1 VIEW, 01/23/2025 12:17 PM COMPARISON: No prior studies available for comparison. CLINICAL INDICATIONS: right knee pain RELEVANT CLINICAL HISTORY: M25.561:Right knee pain, unspecified chronicity PA weight bearing, flexed knee (notch), sunrise patella, 45 degree lateral knee, AP bilateral standing. Please add 30mm calibration marker ball.; FINDINGS: 4 images obtained. Effusion: Joint effusion is noted. Soft Tissue: There is no significant soft tissue swelling. Bone: No acute osseous abnormality. Joint: Tricompartmental marginal demonstrated with most pronounced narrowing of the medial compartment. Associated subchondral eburnation. TibFib syndesmosis: The proximal tibiofibular syndesmosis is anatomically aligned. IMPRESSION: Tricompartmental osteoarthritis of the right knee. Joint effusion. Normal [facility] XR Knee - bilateral Views W standingon 01-23-2025 IMPRESSION: Tricompartmental osteoarthritis of the right knee. Joint effusion. OLOGY EXAM: XR KNEE RIGHT 3+ VIEWS W/ BILATERAL STANDING 1 VIEW, 01/23/2025 12:17 PM COMPARISON: No prior studies available for comparison. CLINICAL INDICATIONS: right knee pain RELEVANT CLINICAL HISTORY: M25.561:Right knee pain, unspecified chronicity PA weight bearing, flexed knee (notch), sunrise patella, 45 degree lateral knee, AP bilateral standing. Please add 30mm calibration marker ball.; FINDINGS: 4 images obtained. Effusion: Joint effusion is noted. Soft Tissue: There is no significant soft tissue swelling. Bone: No acute osseous abnormality. Joint: Tricompartmental marginal demonstrated with most pronounced narrowing of the medial compartment. Associated subchondral eburnation. TibFib syndesmosis: The proximal tibiofibular syndesmosis is anatomically aligned. RADIOLOGY Orestes Swift DO - 01/23/2025 EXAM: XR KNEE RIGHT 3+ VIEWS W/ BILATERAL STANDING 1 VIEW, 01/23/2025 12:17 PM COMPARISON: No prior studies available for comparison. CLINICAL INDICATIONS: right knee pain RELEVANT CLINICAL HISTORY: M25.561:Right knee pain, unspecified chronicity PA weight bearing, flexed knee (notch), sunrise patella, 45 degree lateral knee, AP bilateral standing. Please add 30mm calibration marker ball.; FINDINGS: 4 images obtained. Effusion: Joint effusion is noted. Soft Tissue: There is no significant soft tissue swelling. Bone: No acute osseous abnormality. Joint: Tricompartmental marginal demonstrated with most pronounced narrowing of the medial compartment. Associated subchondral eburnation. TibFib syndesmosis: The proximal tibiofibular syndesmosis is anatomically aligned. IMPRESSION IMPRESSION: Tricompartmental osteoarthritis of the right knee. Joint effusion. [facility] Radiology Study observation (narrative) [facility] XR Knee - bilateral Views W standingOrdered By: Orestes Swift on 01-23-2025 [facility] Work Phone: BONE DENSITY AXIAL (HIP, PEL VIS, SPINE)on 10-12-2024 BONE DENSITY AXIAL (HIP, PELVIS, SPINE) EXAM: BONE DENSITY AXIAL (HIP, PELVIS, SPINE) 10/12/2024 10:35 AM TECHNIQUE: DXA scanning using a Concentra Advance bone densitometer [facility] was performed on 10/12/2024 10:35 AM CLINICAL INDICATIONS: OSteoporosis, on treatment RELEVANT CLINICAL HISTORY: M81.0:Age related osteoporosis, unspecified pathological fracture presence COMPARISON: Today's examination is compared to the technically similar prior study dated October 11, 2022 FINDINGS: 1. Quality of the examination at the L1-4 lumbar spine: Limited due to degenerative sclerosis. 2. Quality of the examination at the dual hip: Adequate. BONE MINERAL DENSITY (BMD) CURRENT BONE MINERAL DENSITY (BMD) Region: g/cm2 T-Score Lumbar 1-4 Spine: 0.904 -2.3 Left Femoral Neck: 0.908 -0.9 Left Total Hip: 0.953 -0.4 Right Femoral Neck: 0.876 -1.2 Right Total Hip: 0.882 -1.0 COMPARISON WITH PREVIOUS EXAMS ON: October 11, 2022 Body Region: Prev BMD Current BMD Change (g/cm2) (g/cm2) (%) Lumbar 1-4 Spine: 0.876, 0.904, 3.2% Left Total Hip: 0.898, 0.953, 6.1% Right Total Hip: 0.825, 0.882, 6.9% IMPRESSION: Based on BMD and WHO criteria diagnosis is consistent with osteopenia. Today's examination is compared to the technically similar prior study dated October 11, 2022 There has been an interval increase in BMD at the lumbar spine and right total hip. * The T-score reflects standard deviations above (+) or below (-) a 20-40 year-old, , female, [place] population. At this age, it is assumed that peak bone mass is reached. * The Z-score reflects standard deviations above (+) or below (-) an age, sex, ethnicity, and weight-matched population. * Osteoporosis is defined as a skeletal disorder characterized by compromised bone strength predisposing to an increased risk of fracture. Bone strength reflects the integration of two main features: BMD and bone quality (PHILIPPE 2001;285:785-795). Any history of fragility fracture is suggestive of osteoporosis, regardless of the BMD data acquired in this study. * Secondary causes of bone loss should be evaluated if clinically indicated as the etiology of low BMD cannot be determined by BMD measurement alone. FRAX is an available clinical tool developed to evaluate fracture risk in patients using individualized clinical risk factors. The online calculator can be accessed at the following link: https://frax.shef.ac. uk/FRAX/ The physician who interpreted this study is a Certified Clinical Custodian Blood Bank by the International Society of Clinical Densitometry Orestes Swift DO, CCD. Normal [facility] DXA Skeletal system.axial Vi ews for bone densityon 10-12-2024 IMPRESSION: Based on BMD and WHO criteria diagnosis is consistent with osteopenia. Today's examination is compared to the technically similar prior study dated October 11, 2022 There has been an interval increase in BMD at the lumbar spine and right total hip. * The T-score reflects standard deviations above (+) or below (-) a 20-40 year-old, , female, [place] population. At this age, it is assumed that peak bone mass is reached. * The Z-score reflects standard deviations above (+) or below (-) an age, sex, ethnicity, and weight-matched population. * Osteoporosis is defined as a skeletal disorder characterized by compromised bone strength predisposing to an increased risk of fracture. Bone strength reflects the integration of two main features: BMD and bone quality (PHILIPPE 2001;285:785-795). Any history of fragility fracture is suggestive of osteoporosis, regardless of the BMD data acquired in this study. * Secondary causes of bone loss should be evaluated if clinically indicated as the etiology of low BMD cannot be determined by BMD measurement alone. FRAX is an available clinical tool developed to evaluate fracture risk in patients using individualized clinical risk factors. The online calculator can be accessed at the following link: https://frax.shef.ac. uk/FRAX/ The physician who interpreted this study is a Certified Clinical Custodian Blood Bank by the International Society of Clinical Densitometry Orestes Swift DO CCD. OLOGY EXAM: BONE DENSITY AXIAL (HIP, PELVIS, SPINE) 10/12/2024 10:35 AM TECHNIQUE: DXA scanning using a Concentra Advance bone densitometer at the [facility] was performed on 10/12/2024 10:35 AM CLINICAL INDICATIONS: OSteoporosis, on treatment RELEVANT CLINICAL HISTORY: M81.0:Age related osteoporosis, unspecified pathological fracture presence COMPARISON: Today's examination is compared to the technically similar prior study dated October 11, 2022 FINDINGS: 1. Quality of the examination at the L1-4 lumbar spine: Limited due to degenerative sclerosis. 2. Quality of the examination at the dual hip: Adequate. BONE MINERAL DENSITY (BMD) CURRENT BONE MINERAL DENSITY (BMD) Region: g/cm2 T-Score Lumbar 1-4 Spine: 0.904 -2.3 Left Femoral Neck: 0.908 -0.9 Left Total Hip: 0.953 -0.4 Right Femoral Neck: 0.876 -1.2 Right Total Hip: 0.882 -1.0 COMPARISON WITH PREVIOUS EXAMS ON: October 11, 2022 Body Region: Prev BMD Current BMD Change (g/cm2) (g/cm2) (%) Lumbar 1-4 Spine: 0.876, 0.904, 3.2% Left Total Hip: 0.898, 0.953, 6.1% Right Total Hip: 0.825, 0.882, 6.9% RADIOLOGY Orestes Swift DO - 10/12/2024 EXAM: BONE DENSITY AXIAL (HIP, PELVIS, SPINE) 10/12/2024 10:35 AM TECHNIQUE: DXA scanning using a Concentra Advance bone densitometer at the [facility] was performed on 10/12/2024 10:35 AM CLINICAL INDICATIONS: OSteoporosis, on treatment RELEVANT CLINICAL HISTORY: M81.0:Age related osteoporosis, unspecified pathological fracture presence COMPARISON: Today's examination is compared to the technically similar prior study dated October 11, 2022 FINDINGS: 1. Quality of the examination at the L1-4 lumbar spine: Limited due to degenerative sclerosis. 2. Quality of the examination at the dual hip: Adequate. BONE MINERAL DENSITY (BMD) CURRENT BONE MINERAL DENSITY (BMD) Region: g/cm2 T-Score Lumbar 1-4 Spine: 0.904 -2.3 Left Femoral Neck: 0.908 -0.9 Left Total Hip: 0.953 -0.4 Right Femoral Neck: 0.876 -1.2 Right Total Hip: 0.882 -1.0 COMPARISON WITH PREVIOUS EXAMS ON: October 11, 2022 Body Region: Prev BMD Current BMD Change (g/cm2) (g/cm2) (%) Lumbar 1-4 Spine: 0.876, 0.904, 3.2% Left Total Hip: 0.898, 0.953, 6.1% Right Total Hip: 0.825, 0.882, 6.9% IMPRESSION IMPRESSION: Based on BMD and WHO criteria diagnosis is consistent with osteopenia. Today's examination is compared to the technically similar prior study dated October 11, 2022 There has been an interval increase in BMD at the lumbar spine and right total hip. * The T-score reflects standard deviations above (+) or below (-) a 20-40 year-old, , female, [place] population. At this age, it is assumed that peak bone mass is reached. * The Z-score reflects standard deviations above (+) or below (-) an age, sex, ethnicity, and weight-matched population. * Osteoporosis is defined as a skeletal disorder characterized by compromised bone strength predisposing to an increased risk of fracture. Bone strength reflects the integration of two main features: BMD and bone quality (PHILIPPE 2001;285:785-795). Any history of fragility fracture is suggestive of osteoporosis, regardless of the BMD data acquired in this study. * Secondary causes of bone loss should be evaluated if clinically indicated as the etiology of low BMD cannot be determined by BMD measurement alone. FRAX is an available clinical tool developed to evaluate fracture risk in patients using individualized clinical risk factors. The online calculator can be accessed at the following link: https://frax.shef.ac. uk/FRAX/ The physician who interpreted this study is a Certified Clinical Custodian Blood Bank by the International Society of Clinical Densitometry Orestes Swift DO, [facility]. [facility] Radiology Study observation (narrative) [facility] DXA Skeletal system.axial Vi ews for bone densityOrdered By: Orestes Swift on 10-12-2024 [facility] Work Phone: XR KNEE LEFT 3 VIEWSon 05-19 XR KNEE LEFT 3 VIEWS EXAM: XR KNEE LEFT 3 VIEWS, 05/19/2024 11:31 AM COMPARISON: No prior studies available for comparison. CLINICAL INDICATIONS: lateral knee pain, fall 1 week ago FINDINGS: 3 images obtained. Effusion: There is no joint effusion. Soft Tissue: There is no significant soft tissue swelling. Bone: No acute osseous abnormality. Inferior patellar pole fragmented hypertrophic change, likely related to chronic patellar tendon biomechanical stress. . Joint: There is no significant joint space narrowing. TibFib syndesmosis: The proximal tibiofibular syndesmosis is anatomically aligned. IMPRESSION: No acute osseous abnormality I personally viewed and interpreted these images and I have reviewed and approved this report. Normal [facility] XR Knee - left 3 Viewson IMPRESSION: No acute osseous abnormality I personally viewed and interpreted these images and I have reviewed and approved this report. OLOGY EXAM: XR KNEE LEFT 3 VIEWS, 05/19/2024 11:31 AM COMPARISON: No prior studies available for comparison. CLINICAL INDICATIONS: lateral knee pain, fall 1 week ago FINDINGS: 3 images obtained. Effusion: There is no joint effusion. Soft Tissue: There is no significant soft tissue swelling. Bone: No acute osseous abnormality. Inferior patellar pole fragmented hypertrophic change, likely related to chronic patellar tendon biomechanical stress. . Joint: There is no significant joint space narrowing. TibFib syndesmosis: The proximal tibiofibular syndesmosis is anatomically aligned. RADIOLOGY Yokasta Weiner M D - 05/19/2024 EXAM: XR KNEE LEFT 3 VIEWS, 05/19/2024 11:31 AM COMPARISON: No prior studies available for comparison. CLINICAL INDICATIONS: lateral knee pain, fall 1 week ago FINDINGS: 3 images obtained. Effusion: There is no joint effusion. Soft Tissue: There is no significant soft tissue swelling. Bone: No acute osseous abnormality. Inferior patellar pole fragmented hypertrophic change, likely related to chronic patellar tendon biomechanical stress. . Joint: There is no significant joint space narrowing. TibFib syndesmosis: The proximal tibiofibular syndesmosis is anatomically aligned. IMPRESSION IMPRESSION: No acute osseous abnormality I personally viewed and interpreted these images and I have reviewed and approved this report. [facility] Radiology Study observation (narrative) [facility] XR Knee - left 3 ViewsOrdere d By: Yokasta Weiner on 05-19-2024 [facility] Work Phone: [employer] Office Visit Reporton 03-19-2024 [employer] Office Visit Report [facility], [address] [place] [address] OFFICE VISIT Date of Service: 03/19/24 MR#: [id number] Acct: [id number] Name: ELISA CRUZ Rep #: [id number] : 1955 Provider: INDRA Pham Age/Sex: 68/F [place] [facility] [place]: Signed Intake Vital Signs 03/17/23 08:43 03/19/24 13:12 03/19/24 13:15 Height 5 ft 2 in 5 ft 2 in 5 ft 2 in Weight: 141 lb BMI 25.7 BP 98/66 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: No Is patient in pain?: No Allergies morphine Allergy (Verified 03/19/24 13:13) Itching Medications ???Medication ???Instructions ???Recorded ???Confirmed ???Type cholecalciferol (vitamin D3) 50 50 mcg PO DAILY 02/04/20 03/19/24 History mcg (2,000 unit) capsule magnesium oxide 250 mg PO DAILY 02/04/20 03/19/24 History trazodone 50 mg tablet 50 mg PO DAILY #30 tabs 02/18/22 03/19/24 Rx alendronate 5 mg tablet 5 mg PO QAM 03/19/24 03/19/24 History omeprazole 10 mg capsule,delayed 10 mg PO ONCE 03/19/24 03/19/24 History release Is last menstrual period known: No Post menopausal: Yes Patient : No : No PFSH Medical History Wears glasses Cancer Alcohol use Arthritis Pulmonary embolism DVT (deep venous thrombosis) Injury of head and neck Non-smoker Melanoma Abnormal Pap smear of cervix Insomnia Surgical History S/P shoulder surgery Status post Mohs surgery H/O breast biopsy H/O sinus surgery H/O: Family History Father Heart disease Social History Smoking Status: Never smoker alcohol intake: current details: glass of wine on the weekends substance use type: does not use caffeine: Yes what type of physical activity do you participate in: walking frequency: 1-2 times per week seatbelt use: always do you feel safe at home: Yes additional social history: - 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 Date Name GA/Weeks Outcome Route Bth Weight Infant Gen Labor Lgth Anesthesia Del Locatn Provider FOB Unknown Sangeeta-1983 Unknown Marilee-1985 Unknown Lashaun-1989 Unknown Mahendra-1994 HPI Encounter for routine gynecological examination Details: ELISA CRUZ is a 68 year old who presents for annual exam. She reports no issues or concerns today. Last PAP: 2021; with PAP-normal History of abnormal PAP: 20 yrs ago-[place] Last mammogram: today History of abnormal mammogram: more than 5 yrs ago-tissue clip in place. Colon cancer screening: up to date--approx 2021; polyp; next due [address] Mckinney. Other preventative health care screenings: Primary Care Doctor: Dr. Baldomero Saab[place]. ROS Const Constitutional: Denies chills, fatigue, fever(s), headache(s) or weight loss Eyes Eyes: Denies change in vision ENT ENT: Denies dizziness Resp Resp: Denies cough GI GI: Denies abdominal pain, constipation or nausea : Denies difficulty voiding, dysuria, hematuria, nipple discharge, pelvic pain, prolapse symptoms, urinary incontinence, vaginal discharge, vaginal dryness, vaginal odor or vaginal pruritus Skin Skin/Breast: Denies alopecia, rash, breast mass, breast pain, breast skin changes or nipple discharge Neuro Neuro: Denies dizziness Psych Psych: Denies anxiety or depression Endo Endo: Denies cold intolerance, excessive sweating or heat intolerance Exam Const General: cooperative, healthy appearing, comfortable, no acute distress, well groomed and well hydrated Nutritional Appearance: well nourished Orientation: alert, awake and oriented x3 HENMT Head: normal to inspection and normocephalic Ears: hearing grossly normal bilaterally and external ears normal Nose: external nose normal Face and sinus: normal facial exam Eyes General: appearance normal, both eyes and all related structures Neck Neck: normal visual inspection, full ROM and no lymphadenopathy Thyroid: thyroid normal Chest Chest palpation inspection: normal inspection of the chest Breast inspection: normal inspection of the breasts and normal inspection of the axillae Breast palpation: normal palpation of the breasts, normal palpation of the axillae and no axillary lymphadenopathy Resp Effort Inspection: normal respiratory effort, able to speak in complete sentences and symmetric chest movement GI Inspecti (more content not included)... Normal [facility] SCRN MAMM (CAD)W/DALTON BILATo n 03-19-2024 SCRN MAMM (CAD)W/DALTON BILAT [facility] [address] [place] [address] [id number] SCRN MAMM (CAD)W/DALTON BILAT MR#: [id number] Acct: [id number] Name: ELISA CRUZ Rep #: [id number] : 1955 F 68 From: Edward jang MD PCP: OMAR SAAB Status: REG CLI Study: SCRN MAMM (CAD)W/DALTON BILAT Date of Exam: 03/09 06/01 Exam# [id number] Ordering Dr: Milagro Thomas OYSTER PREPARER OYSTER PREPARER -C [id number] MAMMOGRAPHY - BILATERAL SCREENING REASON FOR EXAM: Female, 68 years old. Routine annual screening examination. PERTINENT HISTORY: Non-contributory. History of prior bilateral excisional breast biopsies. TECHNIQUE: Digital bilateral breast dalton (3D mammographic acquisition) in the CC and MLO projections. 2-D mediolateral oblique (MLO) and craniocaudad (CC) views of both breasts were obtained. CAD: Full Field Digital Mammography with Computer Added Detection was performed. COMPARISON: Comparison is made with prior study March 17, 2023 and February 18, 2022. FINDINGS: Breast Composition: There are scattered areas of fibroglandular density. There are no dominant masses or suspicious calcifications. A tissue clip marker is once again seen in the central medial aspect of the left breast. A tissue clip marker is once again seen in the central medial aspect of the left breast. No other significant abnormalities are identified. There has been no significant change since the prior study. BI/SCRN MAMM (CAD)W/DALTON BILAT IMPRESSION: Stable bilateral screening mammogram. Yearly follow-up mammogram recommended. (A) ASSESSMENT CATEGORY: BIRADS Category 2: Benign. A letter regarding these results will be sent to the patient by the facility within 30 days. Approximately 10% of breast cancers are not detected by mammography. A normal mammogram should not delay biopsy of a clinically suspicious abnormality. [id number] Electronically Signed: Edward Huang MD at 9:08 EST , CC: INDRA Thomas; OMAR SAAB Radiologic Therapist: Signed Normal [facility] GOMEZ MULTIPLEX SCRN WITH REFL EXon 01-30-2024 Interpretation and review of laboratory results Normal [facility] Nuclear Ab Ql (S) Negative Negative [facility] Comment on above: This test includes t he following antibodies: Centromere, Chromatin, DsDNA, Jo1, Ribosomal P, PUBLIC HEALTH PHYSICIAN, ScL70, Sm/PUBLIC HEALTH PHYSICIAN, Jimenez, SSA and SSB. A negative screen result means each antibody listed is negative. If positive, the individual antibody results will be reflexed. [facility] C REACTIVE PROTEINon 024 CRP High sensitivity method [Mass/Vol] 2.98 mg/L [facility] - 10.00 mg/L [facility] No Panel Informationon 01-29 Interpretation and review of laboratory results Normal [facility] SEDIMENTATION RATE, AUTOMATE Don 01-30-2024 ESR (Bld) [Velocity] 5 mm/h NINF [facility] Interpretation and review of laboratory results Normal [facility] URIC ACIDon 01-30-2024 Urate [Mass/Vol] 5.6 mg/dL 2.8 - 6.0 mg/dL [facility] CBC AND ELECTRONIC DIFFon Basophils (Bld) [#/Vol] 0.04 10*3/uL 0.00 - 0.15 K/uL [facility] Basophils/100 WBC (Bld) 0.6 % [facility] Differential cell count method Nom (Bld) Electronic Differential [facility] Eosinophils (Bld) [#/Vol] 0.09 10*3/uL 0.00 - 0.42 K/uL [facility] Eosinophils/100 WBC (Bld) 1.4 % [facility] Erythrocyte distribution width (RBC) [Ratio] 13.0 % 10.8 - 14.9 % [facility] Hematocrit (Bld) [Volume fraction] 44.2 % 34.9 - 44.3 % [facility] Hemoglobin (Bld) [Mass/Vol] 14.6 g/dL 11.4 - 15.2 g/dL [facility] Immature granulocytes (Bld) [#/Vol] K/uL NINF - 0.08 K/uL [facility] Immature granulocytes/100 WBC (Bld) 0.3 % [facility] Lymphocytes (Bld) [#/Vol] 1.37 10*3/uL 1.16 - 3.51 K/uL [facility] Lymphocytes/100 WBC (Bld) 21.4 % [facility] MCH (RBC) [Entitic mass] 30.8 pg 25.9 - 33.9 pg [facility] MCHC (RBC) [Mass/Vol] 33.0 g/dL 31.4 - 35.9 g/dL [facility] MCV (RBC) [Entitic vol] 93.2 fL 79.6 - 97.7 fL [facility] Monocytes (Bld) [#/Vol] 0.37 10*3/uL 0.22 - 0.87 K/uL [facility] Monocytes/100 WBC (Bld) 5.8 % [facility] Neutrophils (Bld) [#/Vol] 4.51 10*3/uL 1.64 - 7.28 K/uL [facility] Nucleated RBC/100 WBC (Bld) [Ratio] 0.0 % [facility] Platelet mean volume (Bld) [Entitic vol] 10.8 fL 8.5 - 12.2 fL [facility] Platelets (Bld) [#/Vol] 219 10*3/uL 150 - 393 K/uL [facility] RBC (Bld) [#/Vol] 4.74 10*6/uL [facility] Segmented neutrophils/100 WBC (Bld) 70.5 % [facility] WBC (Bld) [#/Vol] 6.40 10*3/uL 3.99 - 11. 19 K/uL [facility] COMPREHENSIVE METABOLIC PANE Candido 10-14-2023 Albumin [Mass/Vol] 4.5 g/dL 3.5 - 5.0 g/dL [facility] ALP [Catalytic activity/Vol] 67 U/L 32 - 126 U/L [facility] ALT [Catalytic activity/Vol] 12 U/L 9 - 48 U/L [facility] Anion gap [Moles/Vol] 14 mmol/L 7 - 17 mmol/L [facility] AST [Catalytic activity/Vol] 17 U/L 10 - 39 U/L [facility] Bilirubin [Mass/Vol] 0.6 mg/dL NINF - 1.5 mg/dL [facility] Calcium [Mass/Vol] 9.4 mg/dL 8.6 - 10. 5 mg/dL [facility] Chloride [Moles/Vol] 105 mmol/L 98 - 10 8 mmol/L [facility] CO2 [Moles/Vol] 25 mmol/L 21 - 31 mmol/L [facility] Creatinine [Mass/Vol] 0.87 mg/dL 0.50 - 1.20 mg/dL [facility] eGFR, CKD-EPI, Female 73 - PINF [facility] Comment on above: Reported eGFR is bas ed on the CKD-EPI 2020 equation using creatinine, age, and sex. Glucose [Mass/Vol] 95 mg/dL 70 - 99 mg/dL [facility]ality[facility] Potassium [Moles/Vol] 4.2 mmol/L 3.5 - 5.0 mmol/L [facility] Protein [Mass/Vol] 7.3 g/dL 6.4 - 8.3 g/dL [facility] Sodium [Moles/Vol] 140 mmol/L 135 - 145 mmol/L [facility] Urea nitrogen [Mass/Vol] 17 mg/dL 7 - 25 mg/dL [facility] Urea nitrogen/Creatinine [Mass ratio] 20 mg/mg [facility] HEMOGLOBIN A1Con 10-14-2023 Average glucose Estimated from glycated hemoglobin (Bld) [Mass/Vol] 114 mg/dL [facility] HbA1c (Bld) [Mass fraction] 5.6 % 4.7 - 5.6 % [facility] HEPATITIS C ANTIBODYOrdered By: Lesley Tse on 10-14-2023 HCV Ab Ql (S) Negative Negative [facility] Interpretation and review of laboratory results Normal [facility] LIPID PANEL WITH REFLEX TO M EASURED LDLon 10-14-2023 Cholesterol [Mass/Vol] 172 mg/dL NINF - 200 mg/dL [facility] Comment on above: [<200 mg/dL: Desirab le] [200-239 mg/dL: Borderline High] [>239 mg/dL: High] Cholesterol in HDL [Mass/Vol] 90 mg/dL 40 - PINF mg/dL [facility] Comment on above: [<40 mg/dL: Low (Hig h Risk)] [>59 mg/dL: High (Low Risk)] Cholesterol in LDL [Mass/Vol] 62 mg/dL 0 - 99 mg/dL [facility] Comment on above: [<100 mg/dL: Optimal ] [100-129 mg/dL: Near Optimal] [130-159 mg/dL: Borderline High] [160-189 mg/dL: High] [>189 mg/dL: Very High] Cholesterol non HDL [Mass/Vol] 82 mg/dL NINF - 130 mg/dL [facility] Cholesterol.total/Cho lesterol in HDL [Mass ratio] 1.9 {ratio} NINF - 4.5 [facility] Interpretation and review of laboratory results Normal [facility] Triglyceride [Mass/Vol] 101 mg/dL NINF - 150 mg/dL [facility] Comment on above: [<150 mg/dL: Desirab le] [150-199 mg/dL: Borderline] [200-499 mg/dL: High] [>500 mg/dL: Very High] No Panel Informationon 10-13 [facility] TSH W/FT4 REFLEXon Interpretation and review of laboratory results Normal [facility] TSH Qn 0.810 m[IU]/L [facility] URINALYSISon 10-14-2023 Appearance (U) Clear Clear [facility] Bacteria LM Ql (Urine sed) ABSENT ABSENT [facility] Color (U) Yellow Yellow [facility] Epithelial cells.squamous LM Ql (Urine sed) 0-2/hpf 0-2/hpf, 3-5/hpf = 1+ [facility] Glucose Test strip (U) [Mass/Vol] Negative Negative [facility] Interpretation and review of laboratory results Normal [facility] Ketones (U) [Mass/Vol] Negative Negative [facility] Leukocyte esterase Test strip Ql (U) Negative Negative [facility] Nitrite Ql (U) Negative Negative [facility] pH (U) 6.5 [pH] 5.0 - 7.0 [facility] Protein (U) [Mass/Vol] Negative Negative [facility] RBC (U) [#/Vol] Negative Negative [facility] RBC LM.HPF (Urine sed) [#/Area] 0-2 [facility] Specific gravity (U) [Rel density] 1.010 1.001 - 1.035 [facility] Urobilinogen (U) [Mass/Vol] 0.2 E.U./dL 0.2 E.U/dL, 1.0 E.U/dL [facility] WBC LM.HPF (Urine sed) [#/Area] 0 - 5 [facility] C-TELOPEPTIDEon 02-19-2023 Collagen crosslinked C-telopeptide [Mass/Vol] 567 pg/mL [facility] Comment on above: REFERENCE VALUE [phone] (18-29 y) 150-635 (30-39 y) 131-670 (40-49 y) [phone] (50-59 y) 171-970 (60-69 y) 152-858 (>70 y) 136-689 (Premenopausal) [phone] (Postmenopausal) Flagging is based on the age-specific reference interval and not menopausal status. Test Performed by: [facility] [address] [place] [address] Railroad Watchman: Rafita Martin M.D. Ph.D.; CLIA# [id number] [facility] ALBUMINon 02-18-2023 Albumin [Mass/Vol] 5.1 g/dL High 3.5 - 5.0 g/dL [facility] Interpretation and review of laboratory results Abnormal [facility] CALCIUMon 02-18-2023 Calcium [Mass/Vol] 10.1 mg/dL 8.6 - 10. 5 mg/dL [facility] CHEM 6 (LYTES, BUN CREA)on 1 Anion gap [Moles/Vol] 13 mmol/L 7 - 17 mmol/L [facility] Chloride [Moles/Vol] 103 mmol/L 98 - 10 8 mmol/L [facility] CO2 [Moles/Vol] 26 mmol/L 21 - 31 mmol/L [facility] Creatinine [Mass/Vol] 0.81 mg/dL 0.50 - 1.20 mg/dL [facility] eGFR, CKD-EPI, Female 80 - PINF [facility] Comment on above: Reported eGFR is bas ed on the CKD-EPI 2020 equation using creatinine, age, and sex. Potassium [Moles/Vol] 4.1 mmol/L 3.5 - 5.0 mmol/L [facility] Sodium [Moles/Vol] 138 mmol/L 135 - 145 mmol/L [facility] Urea nitrogen [Mass/Vol] 22 mg/dL 7 - 25 mg/dL [facility] Urea nitrogen/Creatinine [Mass ratio] 27 mg[facility] MAGNESIUMon 02-18-2023 Magnesium [Mass/Vol] 2.1 mg/dL 1.6 - 2 .6 mg/dL [facility] No Panel Informationon 02-18 Interpretation and review of laboratory results Normal [facility] IMPRESSION: No acute fracture identified. Upper/mid thoracic mild levoscoliosis. Multilevel degeneration of thoracic and lumbar spine. Lower lumbar facet arthrosis. OLOGY EXAM: XR SPINE THORACIC 2 VIEWS, XR SPINE LUMBOSACRAL AP AND LATERAL VIEWS, 02/18/2023 12:31 PM COMPARISON: No priors available for comparison. CLINICAL INDICATIONS: Osteoporosis, height loss, rule out occult fracture RELEVANT CLINICAL HISTORY: M81.0:Age related osteoporosis, unspecified pathological fracture presence FINDINGS: 2 views of thoracic and 3 views of lumbar spine are obtained. Thoracic spine There are 12 rib-bearing thoracic type vertebral bodies. Levoscoliosis of upper through mid thoracic spine measures about 11 degrees. Vertebral bodies are normal in height without compression deformity. Multilevel degeneration is present throughout the thoracic spine. Lumbar spine There are 5 lumbar type vertebral bodies. No compression deformities. Mild anterolisthesis of L4 on L5 measuring 3 mm. No spondylolysis. Mild disc height loss and endplate osteophytosis. Severe lower lumbar facet arthrosis. RADIOLOGY Kirstie Jay MD - 02/18/2023 EXAM: XR SPINE THORACIC 2 VIEWS, XR SPINE LUMBOSACRAL AP AND LATERAL VIEWS, 02/18/2023 12:31 PM COMPARISON: No priors available for comparison. CLINICAL INDICATIONS: Osteoporosis, height loss, rule out occult fracture RELEVANT CLINICAL HISTORY: M81.0:Age related osteoporosis, unspecified pathological fracture presence FINDINGS: 2 views of thoracic and 3 views of lumbar spine are obtained. Thoracic spine There are 12 rib-bearing thoracic type vertebral bodies. Levoscoliosis of upper through mid thoracic spine measures about 11 degrees. Vertebral bodies are normal in height without compression deformity. Multilevel degeneration is present throughout the thoracic spine. Lumbar spine There are 5 lumbar type vertebral bodies. No compression deformities. Mild anterolisthesis of L4 on L5 measuring 3 mm. No spondylolysis. Mild disc height loss and endplate osteophytosis. Severe lower lumbar facet arthrosis. IMPRESSION IMPRESSION: No acute fracture identified. Upper/mid thoracic mild levoscoliosis. Multilevel degeneration of thoracic and lumbar spine. Lower lumbar facet arthrosis. [facility] Radiology Study observation (narrative) [facility] No Panel InformationOrdered By: Kirstie Jay on 02-18-2023 [facility] Work Phone: PHOSPHATE, INORGANICon 02-18 Phosphate [Mass/Vol] 3.3 mg/dL 2.2 - 4 .6 mg/dL [facility] PTH INTACTOrdered By: Apryl Wells on 02-18-2023 Interpretation and review of laboratory results Abnormal [facility] Parathyrin.intact [Mass/Vol] 91.8 pg/mL High 14.0 - 72.0 pg/mL [facility] UPPER EXTREMITY INJECTIONon 01-04-2023 Sukh Argueta MD 01/04/2023 4:25 PM UPPER EXTREMITY INJECTION Date/Time: 01/04/2023 4:00 PM Performed by: Sukh Argueta MD Authorized by: Sukh Argueta MD Supporting Documentation Indications: pain Procedure Details: Procedure: trigger point injection Location: spine - Trigger Point Injection Details: A time out was performed and consent was obtained prior to beginning the procedure. The patient was positioned in seated position. Points of maximal tenderness were palpated for identification. Each area was cleaned with alcohol. The needle was inserted in each location under palpation guidance. After negative aspiration, 0.5-1mL of medicine was injected and dry needling followed in a fan-like manner. 4mL of medication was injected into 6 trigger points Muscles injected bilaterally: Splenius cervicis Trapezius Levator scapulae Needle size: 25 G Medications administered: 1 mL Bupivacaine (PF) 0.25 %; 40 mg triamcinolone 40 MG/ML; 2 mL Lidocaine 1% (PF) 1 % Number of muscles injected: 3 or more muscles Medication Verification: I have personally verified and performed the final check of the medication(s) used in this procedure prior to administration. The following items were included during the verification process for medication(s) administered: drug name, strength, volume, expiration, physical integrity and appearance of the medication(s). Patient tolerance: patient tolerated the procedure well with no immediate complications Consent: Consent was obtained prior to the procedure after discussion of the risks, benefits and alternatives, and expected outcomes were discussed with the patient. The possibilities of reaction to medication, bleeding, infection, the need for additional procedures, failure to diagnosis a condition, and creating a complication requiring operation were discussed with the patient. The patient concurred with the proposed plan, giving consent. Preparation: Patient was prepped in the usual sterile fashion. The patient was prepped with alcohol. [facility] Radiology Study observation (narrative) [facility] BONE DENSITY AXIAL (HIP, PEL VIS, SPINE)on 10-11-2022 IMPRESSION: Based on BMD and WHO criteria diagnosis is consistent with osteoporosis. * The T-score reflects standard deviations above (+) or below (-) a 20-40 year-old, , female, [place] population. At this age, it is assumed that peak bone mass is reached. * The Z-score reflects standard deviations above (+) or below (-) an age, sex, ethnicity, and weight-matched population. * Osteoporosis is defined as a skeletal disorder characterized by compromised bone strength predisposing to an increased risk of fracture. Bone strength reflects the integration of two main features: BMD and bone quality (PHILIPPE 2001;285:785-795). Any history of fragility fracture is suggestive of osteoporosis, regardless of the BMD data acquired in this study. * Secondary causes of bone loss should be evaluated if clinically indicated as the etiology of low BMD cannot be determined by BMD measurement alone. FRAX is an available clinical tool developed to evaluate fracture risk in patients using individualized clinical risk factors. The online calculator can be accessed at the following link: https://frax.shef.ac. [place]/FRAX/ The physician who interpreted this study is a Certified Clinical Custodian Blood Bank by the International Society of Clinical Densitometry Jourdan Rojas M.D., CCD. OLOGY EXAM: BONE DENSITY AXIAL (HIP, PELVIS, SPINE) 10/11/2022 08:34 AM TECHNIQUE: DXA scanning using a [employer] Advance bone densitometer at the [facility] was performed on 10/11/2022 08:34 AM CLINICAL INDICATIONS: osteoporosis screening RELEVANT CLINICAL HISTORY: E28.39:Estrogen deficiency COMPARISON: There are no prior studies performed on this bone densitometer with which to make comparison. FINDINGS: 1. Quality of the examination at the L1-4 lumbar spine: Adequate. 2. Quality of the examination at the dual hip: Adequate. BONE MINERAL DENSITY (BMD) CURRENT BONE MINERAL DENSITY (BMD) Region: g/cm2 T-Score Lumbar 1-4 Spine: 0.876 -2.5 Left Femoral Neck: 0.869 -1.2 Left Total Hip: 0.898 -0.9 Right Femoral Neck: 0.832 -1.5 Right Total Hip: 0.825 -1.4 No comparison study available No radius imaging. RADIOLOGY Jourdan Rojas MD - 10/11/2022 EXAM: BONE DENSITY AXIAL (HIP, PELVIS, SPINE) 10/11/2022 08:34 AM TECHNIQUE: DXA scanning using a [employer] Advance bone densitometer at the [facility] was performed on 10/11/2022 08:34 AM CLINICAL INDICATIONS: osteoporosis screening RELEVANT CLINICAL HISTORY: E28.39:Estrogen deficiency COMPARISON: There are no prior studies performed on this bone densitometer with which to make comparison. FINDINGS: 1. Quality of the examination at the L1-4 lumbar spine: Adequate. 2. Quality of the examination at the dual hip: Adequate. BONE MINERAL DENSITY (BMD) CURRENT BONE MINERAL DENSITY (BMD) Region: g/cm2 T-Score Lumbar 1-4 Spine: 0.876 -2.5 Left Femoral Neck: 0.869 -1.2 Left Total Hip: 0.898 -0.9 Right Femoral Neck: 0.832 -1.5 Right Total Hip: 0.825 -1.4 No comparison study available No radius imaging. IMPRESSION IMPRESSION: Based on BMD and WHO criteria diagnosis is consistent with osteoporosis. * The T-score reflects standard deviations above (+) or below (-) a 20-40 year-old, , female, [place] population. At this age, it is assumed that peak bone mass is reached. * The Z-score reflects standard deviations above (+) or below (-) an age, sex, ethnicity, and weight-matched population. * Osteoporosis is defined as a skeletal disorder characterized by compromised bone strength predisposing to an increased risk of fracture. Bone strength reflects the integration of two main features: BMD and bone quality (PHILIPPE 2001;285:785-795). Any history of fragility fracture is suggestive of osteoporosis, regardless of the BMD data acquired in this study. * Secondary causes of bone loss should be evaluated if clinically indicated as the etiology of low BMD cannot be determined by BMD measurement alone. FRAX is an available clinical tool developed to evaluate fracture risk in patients using individualized clinical risk factors. The online calculator can be accessed at the following link: https://frax.shef.ac. uk/FRAX/ The physician who interpreted this study is a Certified Clinical Custodian Blood Bank by the International Society of Clinical Densitometry Jourdan Rojas M.D., CCD. [facility] Radiology Study observation (narrative) [facility] BONE DENSITY AXIAL (HIP, PEL VIS, SPINE)Ordered By: Jourdan Rojas on 10-11-2022 [facility] Work Phone: CBC,PLATELETSon 06-22-2022 Erythrocyte distribution width (RBC) [Ratio] 12.8 % 10.8 - 14.9 % [facility] Hematocrit (Bld) [Volume fraction] 44.5 % High 34.9 - 44.3 % [facility] Hemoglobin (Bld) [Mass/Vol] 14.3 g/dL 11.4 - 15.2 g/dL [facility] Interpretation and review of laboratory results Abnormal [facility] MCH (RBC) [Entitic mass] 30.5 pg 25.9 - 33.9 pg [facility] MCHC (RBC) [Mass/Vol] 32.1 g/dL 31.4 - 35.9 g/dL [facility] MCV (RBC) [Entitic vol] 94.9 fL 79.6 - 97.7 fL [facility] Platelet mean volume (Bld) [Entitic vol] 10.9 fL 8.5 - 12.2 fL [facility] Platelets (Bld) [#/Vol] 236 10*3/uL 150 - 393 K/uL [facility] RBC (Bld) [#/Vol] 4.69 10*6/uL [facility] WBC (Bld) [#/Vol] 7.16 10*3/uL 3.99 - 11. 19 K/uL [facility] COMPREHENSIVE METABOLIC PANE Candido 06-22-2022 Albumin [Mass/Vol] 4.4 g/dL 3.5 - 5.0 g/dL [facility] ALP [Catalytic activity/Vol] 72 U/L 32 - 126 U/L [facility] ALT [Catalytic activity/Vol] 16 U/L 9 - 48 U/L [facility] Anion gap [Moles/Vol] 11 mmol/L 7 - 17 mmol/L [facility] AST [Catalytic activity/Vol] 17 U/L 10 - 39 U/L [facility] Bilirubin [Mass/Vol] 0.6 mg/dL NINF - 1.5 mg/dL [facility] Calcium [Mass/Vol] 9.8 mg/dL 8.6 - 10. 5 mg/dL [facility] Chloride [Moles/Vol] 104 mmol/L 98 - 10 8 mmol/L [facility] CO2 [Moles/Vol] 29 mmol/L 21 - 31 mmol/L [facility] Creatinine [Mass/Vol] 0.80 mg/dL 0.50 - 1.20 mg/dL [facility] GFR/1.73 sq M.predicted CKD-EPI (S/P/Bld) [Vol rate/Area] 82 - PINF [facility] Comment on above: Reported eGFR is bas ed on the CKD-EPI 2020 equation using creatinine, age, and sex. Glucose [Mass/Vol] 96 mg/dL 70 - 99 mg/dL [facility] Osmolality Calc [Osmolality] 291 [facility] Potassium [Moles/Vol] 4.6 mmol/L 3.5 - 5.0 mmol/L [facility] Protein [Mass/Vol] 7.0 g/dL 6.4 - 8.3 g/dL [facility] Sodium [Moles/Vol] 139 mmol/L 135 - 145 mmol/L [facility] Urea nitrogen [Mass/Vol] 11 mg/dL 7 - 25 mg/dL [facility] Urea nitrogen/Creatinine [Mass ratio] 14 mg/mg [facility] IRON/IRON BINDING/TRANSFERRI Non 06-22-2022 Interpretation and review of laboratory results Normal [facility] Iron [Mass/Vol] 99 ug/dL [facility] Iron binding capacity [Mass/Vol] 324 [facility] Iron saturation [Mass fraction] 31 % 20 - 55 % [facility] Transferrin [Mass/Vol] 259 mg/dL 200 - 400 mg/dL [facility] LIPIDS W/DIRECT MEASURE LDLo n 06-22-2022 Cholesterol [Mass/Vol] 161 mg/dL NINF - 200 mg/dL [facility] Cholesterol in HDL [Mass/Vol] 96 mg/dL 40 - PINF mg/dL [facility] Comment on above: [<40 mg/dL: Low (Hig h Risk)] [>59 mg/dL: High (Low Risk)] Cholesterol in HDL [Mass/Vol] 65 mg/dL NINF - 130 mg/dL [facility] Cholesterol in LDL [Mass/Vol] 39 mg/dL NINF - 100 mg/dL [facility] Comment on above: [<100 mg/dL: Optimal ] [100-129 mg/dL: Near Optimal] [130-159 mg/dL: Borderline High] [160-189 mg/dL: High] [>189 mg/dL: Very High] Cholesterol.total/Cho lesterol in HDL [Mass ratio] 1.7 {ratio} NINF - 4.5 [facility] Interpretation and review of laboratory results Normal [facility] Triglyceride [Mass/Vol] 74 mg/dL NINF - 150 [facility] Comment on above: [<150 mg/dL: Desirab le] [150-199 mg/dL: Borderline] [200-499 mg/dL: High] [>500 mg/dL: Very High] [facility] No Panel Informationon 06-22 [facility] XR Cervical spine 4 Viewson 06-22-2022 IMPRESSION: Multilevel disc degenerative changes, facet arthrosis and uncovertebral joint arthropathy with multilevel neural foraminal and spinal canal encroachment. Minimal anterolisthesis C2-C3 and grade 1 retrolisthesis C4-5. OLOGY EXAM: XR SPINE CERVICAL 4 VIEWS , 06/22/2022 12:03 PM COMPARISON: No prior studies available for comparison. CLINICAL INDICATIONS: pain in neck and trapezius RELEVANT CLINICAL HISTORY: M54.2:Pain in neck FINDINGS: 4 images obtained. Cervical Vertebral: The cervical vertebral body heights are maintained. There is diffuse osseous demineralization. Minimal anterolisthesis of C2 over C3 and grade 1, 3 mm retrolisthesis of C4 over C5. Disc: There is multilevel disc space narrowing and endplate osteophytosis, greatest at C3-4, C4-5 and C5-6. Associated spinal canal encroachment. Joint: Multilevel facet arthrosis and uncovertebral joint arthropathy with multilevel neural foraminal encroachment, greatest at C4-5, C5-6 and C6-7. Soft Tissue: Prevertebral soft tissues are unremarkable. RADIOLOGY Orestes Swift DO - 06/22/2022 EXAM: XR SPINE CERVICAL 4 VIEWS , 06/22/2022 12:03 PM COMPARISON: No prior studies available for comparison. CLINICAL INDICATIONS: pain in neck and trapezius RELEVANT CLINICAL HISTORY: M54.2:Pain in neck FINDINGS: 4 images obtained. Cervical Vertebral: The cervical vertebral body heights are maintained. There is diffuse osseous demineralization. Minimal anterolisthesis of C2 over C3 and grade 1, 3 mm retrolisthesis of C4 over C5. Disc: There is multilevel disc space narrowing and endplate osteophytosis, greatest at C3-4, C4-5 and C5-6. Associated spinal canal encroachment. Joint: Multilevel facet arthrosis and uncovertebral joint arthropathy with multilevel neural foraminal encroachment, greatest at C4-5, C5-6 and C6-7. Soft Tissue: Prevertebral soft tissues are unremarkable. IMPRESSION IMPRESSION: Multilevel disc degenerative changes, facet arthrosis and uncovertebral joint arthropathy with multilevel neural foraminal and spinal canal encroachment. Minimal anterolisthesis C2-C3 and grade 1 retrolisthesis C4-5. [facility] Radiology Study observation (narrative) [facility] XR Cervical spine 4 ViewsOrd ered By: Orestes Swift on 06-22-2022 [facility] Work Phone: CBC and Differentialon 05-29 Abs Baso 0.05 k/uL Normal <0.11 [facility] Abs Dickey 0.41 k/uL Normal <0.87 [facility] Abs Neut 3.18 k/uL Normal 1.45-7.50 [facility] Absolute nRBC <0.01 Normal <0.01 [facility] Basophils/100 WBC (Bld) 0.9 % Normal [facility] DTYPE Auto Diff Normal [facility] Eosinophils (Bld) [#/Vol] 0.18 10*3/uL Normal <0.46 [facility] Eosinophils/100 WBC (Bld) 3.3 % Normal [facility] Erythrocyte distribution width (RBC) [Ratio] 12.5 % Normal 11.5-15.0 [facility] Hematocrit (Bld) [Volume fraction] 41.1 % Normal 36.0-46.0 [facility] Hemoglobin (Bld) [Mass/Vol] 13.6 g/dL Normal 11.5-15.5 [facility] Lymphocytes (Bld) [#/Vol] 1.64 10*3/uL Normal 1.00-4.00 [facility] Lymphocytes/100 WBC (Bld) 30.0 % Normal [facility] MCH 31.1 pG Normal 26.0-34.0 [facility] MCHC (RBC) [Mass/Vol] 33.1 g/dL Normal 30.5-36.0 [facility] MCV (RBC) [Entitic vol] 94.1 fL Normal 80.0-100.0 [facility] Monocytes/100 WBC (Bld) 7.5 % Normal [facility] Neutrophils/100 WBC (Bld) 58.3 % Normal [facility] NRBCs 0.0 /100 WBC Normal 0 [facility] [facility] Plate[facility] mean volume (Bld) [Entitic vol] 10.3 fL Normal 9.0-12.7 [facility] Platelets (Bld) [#/Vol] 218 10*3/uL Normal 150-400 [facility] RBC (Bld) [#/Vol] 4.37 10*6/uL Normal 3.90-5.20 [facility] WBC (Bld) [#/Vol] 5.47 10*3/uL Normal 3.70-11.00 [facility] Comp Metabolic Panelon 05-29 Albumin [Mass/Vol] 4.0 g/dL Normal 3.9-4.9 [facility] ALP [Catalytic activity/Vol] 73 U/L Normal 34-123 [facility] ALT [Catalytic activity/Vol] 11 U/L Normal 7-38 [facility] Anion gap [Moles/Vol] 13 mmol/L Normal 9-18 [facility] AST [Catalytic activity/Vol] 16 U/L Normal 13-35 [facility] Bilirubin [Mass/Vol] 0.3 mg/dL Normal 0.2-1.3 [facility] Calcium [Mass/Vol] 9.3 mg/dL Normal 8.5-10.2 [facility] Chloride [Moles/Vol] 102 mmol/L Normal 97-105 [facility] CO2 [Moles/Vol] 24 mmol/L Normal 22-30 [facility] Creatinine [Mass/Vol] 0.81 mg/dL Normal 0.58-0.96 [facility] eGFR- Amer. >60 Normal [facility] eGFR-All Other Races >60 Normal [facility] Comment on above: Result Comment: eGFR (Estimated GFR) Units of measure: mL/min/1.73 meters squared eGFR is derived from the reexpressed MDRD Study equation using the following parameters: serum creatinine, age, gender and race. The creatinine assay has been calibrated to be traceable to IDMS. An eGFR <60 mL/min/1.73m2 for >3 months is consistent with chronic kidney disease. Refer to KDOQI guidelines for clinical interpretation. In patients with unstable renal function, e.g. those with acute kidney injury, the eGFR may not accurately reflect actual GFR. Note: On 07/04/2021, the eGFR calculation will be updated to the NKF-ASN Task Force recommended 2020 CKD-EPI creatinine equation which does not include a race variable. For more information or to access a 2020 CKD-EPI calculator, visit the National Kidney Foundation website at kidney.org/professionals/kdoqi/gfr_calculator. Glucose [Mass/Vol] 90 mg/dL Normal 74-99 [facility] Comment on above: Result Comment: The [place] Diabetes Association (ADA) provides guidance for cutoff values for fasting glucose and random glucose. The ADA defines fasting as no caloric intake for at least 8 hours. Fasting plasma glucose results between 100 to 125 mg/dL indicate increased risk for diabetes (prediabetes). Fasting plasma glucose results greater than or equal to 126 mg/dL meet the criteria for diagnosis of diabetes. In the absence of unequivocal hyperglycemia, results should be confirmed by repeat testing. In a patient with classic symptoms of hyperglycemia or hyperglycemic crisis, random plasma glucose results greater than or equal to 200 mg/dL meet the criteria for diagnosis of diabetes. Reference: Standards of Medical Care in Diabetes 2016, [place] Diabetes Association. Diabetes Care. 2016.39(Suppl 1). Potassium [Moles/Vol] 4.2 mmol/L Normal 3.7-5.1 [facility] Protein [Mass/Vol] 6.1 g/dL Low 6.3-8.0 [facility] Sodium [Moles/Vol] 139 mmol/L Normal 136-144 [facility] Urea nitrogen [Mass/Vol] 10 mg/dL Normal 7-21 [facility] Magnesiumon 05-29-2021 Magnesium [Mass/Vol] 1.9 mg/dL Normal 1.7-2.3 [facility] Ed 05-20-2021 CNPN Telephone (FAMPWS) ELISA CRUZ ([id number]) 1955 F Date Time Provider Department 05/20/21 ADRIÁN RAMIREZ During your visit today, we recorded the following information about you: Wilda Kirkland Admin Sec 05/20/2021 8:42 AM Signed Pt is scheduled to but would like to have labs. She is also starting Medicare in June and did not want to wait until then to be seen. She is moving soon so she is not sure that she wants to establish care yet. Adrián Ramirez APRN.CUT ROLL MACHINE OPERATOR 05/21/2021 12:41 PM Signed CBC,CMP, magnesium ordered. She was referred for EGD 07/[address] Skinner; should schedule this if not already done Melody Mckeon LPN 05/21/2021 4:53 PM Signed No answer and voice mailbox is full. Yoko Taylor Ma 06/09/2021 12:31 PM Signed Patient had VV 06/04 Allergies As of Date: 05/20/2021 Noted Allergy Reaction MORPHINE 12/21/2004 9 - Itching Date Reviewed: 02/14/2020 Reviewed by: Betty RiceBrand Communications Manager) DAYSI Mcnamara - Fully Assessed Reason for Visit: Patient Question [8717] Primary Visit Diagnosis:Gastroesoph ageal reflux disease, unspecified whether esophagitis present [K21.9] Other Visit Diagnosis:Generalized anxiety disorder [F41.1] Order(s):CBC + DIFF [SQCBCDIF] Order #: [id number] FUTURE COMP METABOLIC PANEL [SQCMP] Order #: [id number] FUTURE MAGNESIUM BLD [SQMG1] Order #: [id number] FUTURE Prescriptions as of 06/09/2021 - traZODone (DESYREL) 50 mg tablet Take 1 tablet by mouth daily at bedtime. - LORazepam (ATIVAN) 0.5 mg Take 1 tablet by mouth daily at bedtime for 180 days. - methenam/sod phos/mblue/hyoscy (UROGESIC-BLUE ORAL) Take 1 tablet by mouth twice daily. - methen/mblue/yamile/sod phos/hyos (AWZHKY-JYFFF-E.BLUE- YAMILE-NAPHOS ORAL) Take by mouth. - Cholecalciferol, Vitamin D3, 3,000 unit tab Take by mouth. - BIOTIN ORAL Take 5,000 mcg by mouth once daily. - LORATADINE (CLARITIN ORAL) Take by mouth as needed. - MULTIVITAMIN ORAL Take 1 tablet by mouth once daily. Meds Comments as of 05/07/2018: Pt began taking eiliquis per the [facility] last night. Pt took 2nd dose of Onkoozy40 mg this am. Pt also took ativan 1.0 mg tablet-took took 1/2 pill last night . Pt states she take no other medications. 05/07/2018 TP Turmeric 1300 mg Problem List As Of Date 05/20/2021 Noted Resolved DIFFUS CYSTIC MASTOPATHY [N60.19] 09/02/2003 ESOPHAGEAL REFLUX [K21.9] 04/09/2005 GENERALIZED ANXIETY DIS [F41.1] 06/01/2006 Osteoarthritis Cervical Spine [M47.812] 12/05/2009 Arthritis of knee, degenerative [M17.10] 02/26/2013 Hematuria [R31.9] 02/15/2014 Family history of multiple myeloma [Z80.7] 10/29/2014 History of melanoma in situ [Z86.006] 08/15/2015 Redundant colon [Q43.8] 01/30/2016 Vitamin D deficiency [E55.9] 10/20/2017 Deep venous thrombosis (DVT) of left peroneal v*05/04/2018 Acute pulmonary embolism without acute cor pulm*05/08/2018 Acute deep vein thrombosis (DVT) of lower extre*05/08/2018 Incidental lung nodule, > 3mm and < 8mm [R91.1] 05/15/2018 salvage determiner current use of anticoagulant therapy *05/19/2018 OAB (overactive bladder) [N32.81] 02/14/2020 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, F51.05] 02/14/2020 Encounter Status:Closed by YOKO TAYLOR MA on 06/09/21 [facility] OBSOLETEon 03-27-2021 OBSOLETE Refill (FAMPWS) ELISA CRUZ ([id number]) 1955 F Date Time Provider Department 03/27/21 BENJAMIN POSADA During your visit today, we recorded the following information about you: Madison Foss [facility] 03/27/2021 11:20 AM Addendum Patient has been identified by name and date of : Yes Pending Prescriptions Disp Refills LORAZEPAM 1 MG TABLET 30 tablet 0 Sig: TAKE 1/2 TABLET BY MOUTH EVERY DAY NEEDED FOR ANXIETY CIERA Class: C-IV ROSANA: No TAIWO-07/18/20 Labs-12/19/20 NOV-none med filled 01/26/21 ends 03/09/21 RX INSTRUCTIONS: Please send today, she is out of medication tomorrow. Patient aware RX will be sent to pharmacy. No need to notify patient. Madison Foss [facility] Benjamin Posada APRN.CNP, DNP 03/27/2021 4:23 PM Signed The following approved medication requests have been transmitted electronically. 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 - methen/mblue/yamile/sod phos/hyos (KBPIFP-OAGUD-D.BLUE- YAMILE-NAPHOS ORAL) Take by mouth. - pantoprazole DR (PROTONIX) 40 mg tablet Take 40 mg by mouth once daily. - Cranberry Extract (ELLURA) 200 mg cap Take 36 mg by mouth once daily. - Cholecalciferol, Vitamin D3, 3,000 unit tab Take by mouth. - BIOTIN ORAL Take 5,000 mcg by mouth once daily. - LORATADINE (CLARITIN ORAL) Take by mouth as needed. - ASPEN PRIMROSE/LINOLEIC/RANI OLENI (PRIMROSE OIL ORAL) Take 1,300 mg by mouth once daily. - MULTIVITAMIN ORAL Take 1 tablet by mouth once daily. Meds Comments as of 05/07/2018: Pt began taking eiliquis per the [facility] last night. Pt took 2nd dose of Iwtorgg48 mg this am. Pt also took ativan 1.0 mg tablet-took took 1/2 pill last night . Pt states she take no other medications. 05/07/2018 TP Turmeric 1300 mg Problem List As Of Date 03/27/2021 Noted Resolved DIFFUS CYSTIC MASTOPATHY [N60.19] 09/02/2003 ESOPHAGEAL REFLUX [K21.9] 04/09/2005 GENERALIZED ANXIETY DIS [F41.1] 06/01/2006 Osteoarthritis Cervical Spine [M47.812] 12/05/2009 Arthritis of knee, degenerative [M17.10] 02/26/2013 Hematuria [R31.9] 02/15/2014 Family history of multiple myeloma [Z80.7] 10/29/2014 History of melanoma in situ [Z86.006] 08/15/2015 Redundant colon [Q43.8] 01/30/2016 Vitamin D deficiency [E55.9] 10/20/2017 Deep venous thrombosis (DVT) of left peroneal v*05/04/2018 Acute pulmonary embolism without acute cor pulm*05/08/2018 Acute deep vein thrombosis (DVT) of lower extre*05/08/2018 Incidental lung nodule, > 3mm and < 8mm [R91.1] 05/15/2018 salvage determiner current use of anticoagulant therapy *05/19/2018 OAB (overactive bladder) [N32.81] 02/14/2020 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, F51.05] 02/14/2020 Prescriptions ordered this encounter Disp Refills Start End LORAZEPAM 1 MG TABLET 30 t* 0 03/27/2021 05/08/2021 Sig: TAKE 1/2 TABLET BY MOUTH EVERY DAY NEEDED FOR ANXIETY Medications Discontinued During This Encounter Prescriptions - LORazepam (ATIVAN) 1 mg tablet (Discontinued) TAKE 1/2 TABLET BY MOUTH EVERY DAY NEEDED FOR ANXIETY Encounter Status:Closed by BENJAMIN POSADA on 03/27/21 [facility] OBSOLETEon 02-26-2021 OBSOLETE Refill (FAMPWS) ELISA CRUZ ([id number]) 1955 F Date Time Provider Department 02/26/21 JAGRUTI SKINNER III FAMPWS During your visit today, we recorded the following information about you: Wilma Dave 02/26/2021 2:53 PM Signed Patient has been identified by name and date of : Yes Pending Prescriptions Disp Refills LORAZEPAM 1 MG TABLET 30 tablet 0 Sig: TAKE 1/2 TABLET BY MOUTH EVERY DAY NEEDED FOR ANXIETY CIERA Class: C-IV ROSANA: No RX INSTRUCTIONS: Patient aware RX will be sent to pharmacy. No need to notify patient. Wilma Dejesus APRN.CNP 02/26/2021 3:09 PM Signed Needs an appointment prior to fill of this medication. Olive Dejesus APRN.YURY Huan Edmond 02/26/2021 4:02 PM Signed Sent message to patient stating that refills wont be approved until next appointment. Olive Dejesus APRN.CNP 02/26/2021 4:18 PM Signed Noted, thank you. 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 - methen/mblue/yamile/sod phos/hyos (AZPBHD-MGFMR-F.BLUE- YAMILE-NAPHOS ORAL) Take by mouth. - pantoprazole DR (PROTONIX) 40 mg tablet Take 40 mg by mouth once daily. - Cranberry Extract (ELLURA) 200 mg cap Take 36 mg by mouth once daily. - Cholecalciferol, Vitamin D3, 3,000 unit tab Take by mouth. - BIOTIN ORAL Take 5,000 mcg by mouth once daily. - LORATADINE (CLARITIN ORAL) Take by mouth as needed. - ASPEN PRIMROSE/LINOLEIC/RANI OLENI (PRIMROSE OIL ORAL) Take 1,300 mg by mouth once daily. - MULTIVITAMIN ORAL Take 1 tablet by mouth once daily. Meds Comments as of 05/07/2018: Pt began taking eiliquis per the [facility] last night. Pt took 2nd dose of Xflywbs69 mg this am. Pt also took ativan 1.0 mg tablet-took took 1/2 pill last night . Pt states she take no other medications. 05/07/2018 TP Turmeric 1300 mg Problem List As Of Date 02/26/2021 Noted Resolved DIFFUS CYSTIC MASTOPATHY [N60.19] 09/02/2003 ESOPHAGEAL REFLUX [K21.9] 04/09/2005 GENERALIZED ANXIETY DIS [F41.1] 06/01/2006 Osteoarthritis Cervical Spine [M47.812] 12/05/2009 Arthritis of knee, degenerative [M17.10] 02/26/2013 Hematuria [R31.9] 02/15/2014 Family history of multiple myeloma [Z80.7] 10/29/2014 History of melanoma in situ [Z86.006] 08/15/2015 Redundant colon [Q43.8] 01/30/2016 Vitamin D deficiency [E55.9] 10/20/2017 Deep venous thrombosis (DVT) of left peroneal v*05/04/2018 Acute pulmonary embolism without acute cor pulm*05/08/2018 Acute deep vein thrombosis (DVT) of lower extre*05/08/2018 Incidental lung nodule, > 3mm and < 8mm [R91.1] 05/15/2018 salvage determiner current use of anticoagulant therapy *05/19/2018 OAB (overactive bladder) [N32.81] 02/14/2020 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, F51.05] 02/14/2020 Encounter Status:Closed by OLIVE DEJESUS on 02/26/21 [facility] OBSOLETEon 01-21-2021 OBSOLETE Refill (FAMPWS) ELISA CRUZ ([id number]) 1955 F Date Time Provider Department 01/21/21 JAGRUTI SKINNER IIIPWS During your visit today, we recorded the following information about you: Amy Gutierrez Pss 01/21/2021 9:01 AM Addendum Patient has been identified by name and date of : Yes Pending Prescriptions Disp Refills LORAZEPAM 1 MG TABLET 30 tablet 0 Sig: TAKE 1/2 TABLET BY MOUTH EVERY DAY NEEDED FOR ANXIETY CIERA Class: C-IV ROSANA: No TAIWO-07/18/20 with PCP Labs-12/19/20 NOV-none med filled 12/24/20 ends 02/19/21 RX INSTRUCTIONS: Patient aware RX will be sent to pharmacy. No need to notify patient. Amy Gutierrez [facility] Delores Mathis 01/23/2021 3:51 PM Signed Patient calling to check status of the refill. Patient would like for today or tomorrow. Benjamin Posada APRN.CNP, YAMIL 01/26/2021 8:33 AM Signed Patient needs to establish care with a new provider prior to more Lorazepam Rx's. Dr. Skinner has retired. PDMP website checked and validated 01/26/2021 All prescriptions have been APPROPRIATELY filled. No suspicious activity was identified. The following approved medication requests have been transmitted electronically. Pending Prescriptions Disp Refills LORAZEPAM 1 MG TABLET 30 tablet 0 Sig: TAKE 1/2 TABLET BY MOUTH EVERY DAY NEEDED FOR ANXIETY CIERA Class: C-IV ROSANA: No Benjamin Posada APRN.YURY, YAMIL Nickerson [facility] 01/26/2021 3:12 PM Signed Schedulers please assist in getting patient an [facility] 01/29/2021 2:37 PM Signed First attempt. Left message for patient to call our office back to schedule a transferring care appointment to establish with a new provider since Dr. Skinner retired. Nanette Woods [facility] Tatiana Abbasi [facility] 03/08/2021 1:48 PM Signed 2nd attempt. Clinical sent my chart message to patient on 02/26. 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 - methen/mblue/yamile/sod phos/hyos (PNSRIC-VMMOT-A.BLUE- YAMILE-NAPHOS ORAL) Take by mouth. - pantoprazole DR (PROTONIX) 40 mg tablet Take 40 mg by mouth once daily. - Cranberry Extract (ELLURA) 200 mg cap Take 36 mg by mouth once daily. - Cholecalciferol, Vitamin D3, 3,000 unit tab Take by mouth. - BIOTIN ORAL Take 5,000 mcg by mouth once daily. - LORATADINE (CLARITIN ORAL) Take by mouth as needed. - ASPEN PRIMROSE/LINOLEIC/RANI OLENI (PRIMROSE OIL ORAL) Take 1,300 mg by mouth once daily. - MULTIVITAMIN ORAL Take 1 tablet by mouth once daily. Meds Comments as of 05/07/2018: Pt began taking eiliquis per the [facility] last night. Pt took 2nd dose of Xtrpjzz51 mg this am. Pt also took ativan 1.0 mg tablet-took took 1/2 pill last night . Pt states she take no other medications. 05/07/2018 TP Turmeric 1300 mg Problem List As Of Date 01/21/2021 Noted Resolved DIFFUS CYSTIC MASTOPATHY [N60.19] 09/02/2003 ESOPHAGEAL REFLUX [K21.9] 04/09/2005 GENERALIZED ANXIETY DIS [F41.1] 06/01/2006 Osteoarthritis Cervical Spine [M47.812] 12/05/2009 Arthritis of knee, degenerative [M17.10] 02/26/2013 Hematuria [R31.9] 02/15/2014 Family history of multiple myeloma [Z80.7] 10/29/2014 History of melanoma in situ [Z86.006] 08/15/2015 Redundant colon [Q43.8] 01/30/2016 Vitamin D deficiency [E55.9] 10/20/2017 Deep venous thrombosis (DVT) of left peroneal v*05/04/2018 Acute pulmonary embolism without acute cor pulm*05/08/2018 Acute deep vein thrombosis (DVT) of lower extre*05/08/2018 Incidental lung nodule, > 3mm and < 8mm [R91.1] 05/15/2018 salvage determiner current use of anticoagulant therapy *05/19/2018 OAB (overactive bladder) [N32.81] 02/14/2020 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, F51.05] 02/14/2020 Prescriptions ordered this encounter Disp Refills Start End LORAZEPAM 1 MG TABLET 30 t* 0 01/26/2021 03/09/2021 Sig: TAKE 1/2 TABLET BY MOUTH EVERY DAY NEEDED FOR ANXIETY Medications Discontinued During This Encounter Prescriptions - LORazepam (ATIVAN) 1 mg tablet (Discontinued) TAKE 1/2 TABLET BY MOUTH EVERY DAY NEEDED FOR ANXIETY Encounter Status:Closed by BENJAMIN POSADA on 01/26/21 [facility] OBSOLETEon 12-22-2020 OBSOLETE Refill (ESTEVAN) ELISA CRUZ ([id number]) 1955 Date Time Provider Department 12/22/20 OLIVE DEJESUS During your visit today, we recorded the following information about you: Zahra Wilhelm [facility] 12/22/2020 9:44 AM Signed Patient has been identified by name and date of : Yes Pending Prescriptions Disp Refills LORAZEPAM 1 MG TABLET 30 tablet 0 Sig: TAKE 1/2 TABLET BY MOUTH EVERY DAY NEEDED FOR ANXIETY CIERA Class: C-IV ROSANA: No RX INSTRUCTIONS: Patient aware RX will be sent to pharmacy. No need to nofity patient. Controlled medication - must be call in. Zahra Wilhelm Pss Ernst Gallegos Ma 12/23/2020 7:14 PM Signed TAIWO: 07/18/2020 [facility] Last refill: 11/14/2020 QTY: 30 Refills: 0 Olive Dejesus APRN.CNP 12/24/2020 12:07 PM Signed The following approved medication requests have been transmitted electronically. Signed Prescriptions Disp Refills LORazepam (ATIVAN) 1 mg tablet 30 tablet 0 Sig: TAKE 1/2 TABLET BY MOUTH EVERY DAY NEEDED FOR ANXIETY CIERA Class: C-IV ROSANA: No Authorizing Provider: OLIVE DEJESUS APRN.CNP PDMP website checked and validated. All prescriptions have been APPROPRIATELY filled. No suspicious activity was identified. 12/24/2020 by Olive Dejesus CNP. 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 - methen/mblue/yamile/sod phos/hyos (QFBMSV-NFWYP-R.BLUE- YAMILE-NAPHOS ORAL) Take by mouth. - pantoprazole DR (PROTONIX) 40 mg tablet Take 40 mg by mouth once daily. - Cranberry Extract (ELLURA) 200 mg cap Take 36 mg by mouth once daily. - Cholecalciferol, Vitamin D3, 3,000 unit tab Take by mouth. - BIOTIN ORAL Take 5,000 mcg by mouth once daily. - LORATADINE (CLARITIN ORAL) Take by mouth as needed. - ASPEN PRIMROSE/LINOLEIC/RANI OLENI (PRIMROSE OIL ORAL) Take 1,300 mg by mouth once daily. - MULTIVITAMIN ORAL Take 1 tablet by mouth once daily. Meds Comments as of 05/07/2018: Pt began taking eiliquis per the [facility] last night. Pt took 2nd dose of Itcqany87 mg this am. Pt also took ativan 1.0 mg tablet-took took 1/2 pill last night . Pt states she take no other medications. 05/07/2018 TP Turmeric 1300 mg Problem List As Of Date 12/22/2020 Noted Resolved DIFFUS CYSTIC MASTOPATHY [N60.19] 09/02/2003 ESOPHAGEAL REFLUX [K21.9] 04/09/2005 GENERALIZED ANXIETY DIS [F41.1] 06/01/2006 Osteoarthritis Cervical Spine [M47.812] 12/05/2009 Arthritis of knee, degenerative [M17.10] 02/26/2013 Hematuria [R31.9] 02/15/2014 Family history of multiple myeloma [Z80.7] 10/29/2014 History of melanoma in situ [Z86.006] 08/15/2015 Redundant colon [Q43.8] 01/30/2016 Vitamin D deficiency [E55.9] 10/20/2017 Deep venous thrombosis (DVT) of left peroneal v*05/04/2018 Acute pulmonary embolism without acute cor pulm*05/08/2018 Acute deep vein thrombosis (DVT) of lower extre*05/08/2018 Incidental lung nodule, > 3mm and < 8mm [R91.1] 05/15/2018 halfway current use of anticoagulant therapy *05/19/2018 OAB (overactive bladder) [N32.81] 02/14/2020 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, F51.05] 02/14/2020 Prescriptions ordered this encounter Disp Refills Start End LORAZEPAM 1 MG TABLET 30 t* 0 12/24/2020 02/09/2021 Sig: TAKE 1/2 TABLET BY MOUTH EVERY DAY NEEDED FOR ANXIETY Medications Discontinued During This Encounter Prescriptions - LORazepam (ATIVAN) 1 mg tablet (Discontinued) TAKE 1/2 TABLET BY MOUTH EVERY DAY NEEDED FOR ANXIETY Encounter Status:Closed by OLIVE DEJESUS on 12/24/20 Normal [facility] Toxicology Screen,Uron 12-19 Amphetamines, Urine Negative Normal Negative [facility] Comment on above: Result Comment: Cuto ff threshold at 1000 ng/mL. Performed By: #### U TOX2 #### [place] [id number] [place] [id number] Barbiturates, Urine Negative Normal Negative [facility] Comment on above: Result Comment: Cuto ff threshold at 200 ng/mL. Performed By: #### U TOX2 #### [place] [id number] Benzodiazepines, Ur Negative Normal Negative [facility] Comment on above: Result Comment: Cuto ff threshold at 200 ng/mL. Performed By: #### U TOX2 #### [place] [phone] Cannabinoids, Urine Negative Normal Negative [facility] Comment on above: Result Comment: Cuto ff threshold at 50 ng/mL. Performed By: #### U TOX2 #### [place] [phone] Cocaine, Urine Negative Normal Negative [facility] Comment on above: Result Comment: Cuto ff threshold at 300 ng/mL. Performed By: #### U TOX2 #### [place] [address] Ethanol, Urine <11 Normal <11 [facility] Comment on above: Performed By: #### U TOX2 #### [place] [address] Opiates, Urine Negative Normal Negative [facility] Comment on above: Result Comment: Cuto ff threshold at 300 ng/mL. Performed By: #### U TOX2 #### [place] [phone] Oxycodone, Urine Negative Normal Negative [facility] Comment on above: Result Comment: Cuto ff threshold at 100 ng/mL. Comment: Immunoassay screen only. Cross reactivity with other substances can occur with immunoassay screening. Detection of any drug(s) in this urine toxicology panel is presumptive only. These tests are for medical purposes only and should not be used for compliance monitoring, legal, or forensic use. Samples should be within normal physiological conditions (e.g. pH). This assay does not include adulteration/specimen validity testing. In clinical settings, confirmatory testing is at the practitioner's discretion [1]. If clinically indicated, confirmation by high specificity, quantitative methodology, which includes adulteration/specimen validity testing, may be requested on the same specimen through Client Services ([phone]) if contacted within 48 hours of initial testing. [1]Substance Abuse and Mental Health Services Administration (2012). Clinical Drug Testing in Primary Care Technical Assistance Publication Series 32. Department of Health and Human Services, [place], p.10. Performed By: #### U TOX2 #### [facility] [address], [place] [address] Phencyclidine, Urine Negative Normal Negative [facility] Comment on above: Result Comment: Cuto ff threshold at 25 ng/mL. Performed By: #### U TOX2 #### [facility] [address], [place] [address] CNPNon 12-15-2020 [facility] Telephone (FAMPWS) ELISA CRUZ ([id number]) 1955 F Date Time Provider Department 12/15/20 NO PCP FAMPWS During your visit today, we recorded the following information about you: Aneudy Zapata RN 12/15/2020 11:08 AM Signed Pt called, verified by name and birthdate. Pt wants to know if the order for urine tox screen is ready in chart so she can complete. Reviewed chart and pt has active urine tox order. Pt verbalized understanding and will stop in to complete Aneudy Zapata RN Allergies As of Date: 12/15/2020 Noted Allergy Reaction MORPHINE 12/21/2004 9 - Itching Date Reviewed: 02/14/2020 [facility] DAYSI Mcnamara - Fully Assessed Reason for Visit: Patient Question [1013] Prescriptions as of 12/15/2020 - LORazepam (ATIVAN) 1 mg tablet TAKE 1/2 TABLET BY MOUTH EVERY DAY NEEDED FOR ANXIETY - methenam/sod phos/mblue/hyoscy (UROGESIC-BLUE ORAL) Take 1 tablet by mouth twice daily. - methen/mblue/yamile/sod phos/hyos (BPZOBO-UKCSQ-W.BLUE- YAMILE-NAPHOS ORAL) Take by mouth. - pantoprazole DR (PROTONIX) 40 mg tablet Take 40 mg by mouth once daily. - Cranberry Extract (ELLURA) 200 mg cap Take 36 mg by mouth once daily. - Cholecalciferol, Vitamin D3, 3,000 unit tab Take by mouth. - BIOTIN ORAL Take 5,000 mcg by mouth once daily. - LORATADINE (CLARITIN ORAL) Take by mouth as needed. - ASPEN PRIMROSE/LINOLEIC/RANI OLENI (PRIMROSE OIL ORAL) Take 1,300 mg by mouth once daily. - MULTIVITAMIN ORAL Take 1 tablet by mouth once daily. Meds Comments as of 05/07/2018: Pt began taking eiliquis per the [facility] last night. Pt took 2nd dose of [id number] mg this am. Pt also took ativan 1.0 mg tablet-took took 1/2 pill last night . Pt states she take no other medications. 05/07/2018 TP Turmeric 1300 mg Problem List As Of Date 12/15/2020 Noted Resolved DIFFUS CYSTIC MASTOPATHY [N60.19] 09/02/2003 ESOPHAGEAL REFLUX [K21.9] 04/09/2005 GENERALIZED ANXIETY DIS [F41.1] 06/01/2006 Osteoarthritis Cervical Spine [M47.812] 12/05/2009 Arthritis of knee, degenerative [M17.10] 02/26/2013 Hematuria [R31.9] 02/15/2014 Family history of multiple myeloma [Z80.7] 10/29/2014 History of melanoma in situ [Z86.006] 08/15/2015 Redundant colon [Q43.8] 01/30/2016 Vitamin D deficiency [E55.9] 10/20/2017 Deep venous thrombosis (DVT) of left peroneal v*05/04/2018 Acute pulmonary embolism without acute cor pulm*05/08/2018 Acute deep vein thrombosis (DVT) of lower extre*05/08/2018 Incidental lung nodule, > 3mm and < 8mm [R91.1] 05/15/2018 halfway current use of anticoagulant therapy *05/19/2018 OAB (overactive bladder) [N32.81] 02/14/2020 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 Radiologic Therapist: PSCB Transcribe Date/Time: Feb 14 2020 12:04P Dictated by : RADHA DAVID MD This examination was interpreted and the report reviewed and electronically signed by: RADHA DAVID MD on Feb 14 2020 12:32PM EST DIVISION OF RADIOLOGY * * *Final Report* * * DATE OF EXAM: Feb 14 2020 11:50AM WOX [id number] - XR RIB/CHST 3V AP RIB/OBL/CHST R / PROCEDURE REASON: Other chest pain * * * * Physician Interpretation * * * * EXAMINATION: XR RIB/CHST 3V AP RIB/OBL/CHST R HISTORY: Right anterior lower rib pain that radiates laterally x several weeks without injury. Other chest pain. TECHNIQUE: XR RIB/CHST 3V AP RIB/OBL/CHST R Laterality: RIGHT Number of different views (projections): 3 M: XB_1 COMPARISON: Comparison is made to prior chest CT dated 11/07/2018 RESULT: Frontal radiograph of the chest and dedicated views of the right ribs show no evidence of pneumothorax, hemothorax or pulmonary contusion. Mild chronic interstitial lung changes are stable. The visualized bony structures are intact without apparent displaced or nondisplaced rib fracture. DIVISION OF RADIOLOGY Provider, Christiano Gottlieb - 02/14/2020 * * *Final Report* * * DATE OF EXAM: Feb 14 2020 11:50AM WOX [id number] - XR RIB/CHST 3V AP RIB/OBL/CHST R / PROCEDURE REASON: Other chest pain * * * * Physician Interpretation * * * * EXAMINATION: XR RIB/CHST 3V AP RIB/OBL/CHST R HISTORY: Right anterior lower rib pain that radiates laterally x several weeks without injury. Other chest pain. TECHNIQUE: XR RIB/CHST 3V AP RIB/OBL/CHST R Laterality: RIGHT Number of different views (projections): 3 M: XB_1 COMPARISON: Comparison is made to prior chest CT dated 11/07/2018 RESULT: Frontal radiograph of the chest and dedicated views of the right ribs show no evidence of pneumothorax, hemothorax or pulmonary contusion. Mild chronic interstitial lung changes are stable. The visualized bony structures are intact without apparent displaced or nondisplaced rib fracture. IMPRESSION IMPRESSION: Negative ribs. Radiologic Therapist: PSCB Transcribe Date/Time: Feb 14 2020 12:04P Dictated by : RADHA DAVID MD This examination was interpreted and the report reviewed and electronically signed by: RADHA DAVID MD on Feb 14 2020 12:32PM EST [facility] Radiology Study observation (narrative) [facility] XR Ribs - right Views and Ch est PAOrdered By: Ccf Provider on 02-14-2020 [facility] Microbiology: Culture, Urine on 01-19-2017 GE use only - for LinkLogic import when terms are not otherwise specified Urine CultureCulture exhibits no growth. Invalid Interpretation Code [facility] Work Phone: Microbiology: Culture, Genit al Comprehensiveon 01-07-2017 GE use only - for LinkLogic import when terms are not otherwise specified . Invalid Interpretation Code [facility] Work Phone: Microbiology: (P) Culture, G enital Comprehensiveon 01-06-2017 GE use only - for LinkLogic import when terms are not otherwise specified . Invalid Interpretation Code [facility] Microbiology: (P) Culture, G enital Comprehensiveon 01-05-2017 GE use only - for LinkLogic import when terms are not otherwise specified . Invalid Interpretation Code [facility] Microbiology: (P) Culture, G enital Comprehensiveon 01-04-2017 GE use only - for LinkLogic import when terms are not otherwise specified . Invalid Interpretation Code [facility] [place] Office Visit: Recurrent UTIo n 01-03-2017 Albumin Ql (U) Negative [facility] [place] Appearance Nom (U) clear Invalid Interpretation Code [facility] Bilirubin Ql (U) Negative [facility] [place] blood in urine (hemoglobin) by dipstick non-hemolyzed trace Invalid Interpretation Code [facility] Color Nom (U) yellow Invalid Interpretation Code [facility] Documentation of current medications (procedure) Done Invalid Interpretation Code [facility] Fall risk assessment No Invalid Interpretation Code [facility] Glucose Test strip mass conc (U) Negative [facility] Ketones mass conc (U) Negative [facility] [place] Leukocyte esterase Test strip Ql (U) Negative Invalid Interpretation Code [facility] Nitrite Ql (U) Positive [facility][1] n [facility] [place] pH (U) 6.0 [pH] [facility] Protein mass conc Done [facility] [place] Tobacco smoking status NHIS Never Invalid Interpretation Code [facility] Tobacco smoking status NHIS Never smoker [facility] Tobacco use CPHS Never smoker Invalid Interpretation Code [facility] Urine, bilirubin presence Negative Invalid Interpretation Code [facility] Urine, glucose presence Negative Invalid Interpretation Code [facility] Urine, ketones presence Negative Invalid Interpretation Code [facility] Urine, nitrite presence Positive Invalid Interpretation Code [facility] Urine, pH 6.0 [pH] Invalid Interpretation Code [facility] Urine, protein Negative Invalid Interpretation Code [facility] Urobilinogen Test strip Ql (U) Negative Invalid Interpretation Code [facility] Microbiology: Culture, Urine on 12-26-2016 [facility] Trimethoprim/Sulfame t ho $ <=[address] [facility] GE use only - for LinkLogic import when terms are not otherwise specified Trimethoprim/Sulfamet ho $ <=20 S Invalid Interpretation Code [facility] Work Phone: Lab Report: (P) Urinalysis, Completeon 12-24-2016 Albumin Ql (U) Negative Negative [facility] Work Phone: Bilirubin Ql (U) Negative Negative [facility] Work Phone: Clarity Nom (U) Sl. Cloudy Invalid Interpretation Code Clear [facility] Work Phone: Color Nom (U) Yellow Invalid Interpretation Code Yellow [facility] Surgical [facility] Work Phone: Glucose Ql (U) Normal mg/dl Invalid Interpretation Code Normal [facility] Surgical [facility] Work Phone: Ketones mass conc (U) Negative Negative [facility] Surgical [facility] Work Phone: Leukocyte esterase Test strip Ql (U) 100 High Negative [facility] Surgical [facility] Work Phone: Nitrite Urine Positive High Negative [facility] Work Phone: Occult Blood, urine 10 High Negative [facility] S urgical [facility] Work Phone: OCCULT BLOOD-UR 10 High Negative [facility] Surgi св[facility]лана [facility] Work Phone: pH (U) 7.0 [pH] 5.0 - 8.0 [facility] Work Phone: Specific gravity Refractometry Relative Density (U) 1.010 Invalid Interpretation Code 1.002-1.030 [facility] Work Phone: Urine, bilirubin presence Negative Invalid Interpretation Code Negative [facility] Work Phone: Urine, ketones presence Negative Invalid Interpretation Code Negative [facility] Work Phone: Urine, pH 7.0 [pH] Invalid Interpretation Code 5.0 - 8.0 [facility] Work Phone: Urine, protein Negative Invalid Interpretation Code Negative [facility] Work Phone: urobilinogen, urine, by dipstick Normal mg/dl Invalid Interpretation Code Normal [facility] Work Phone: Lab Report: Urinalysis, Comp leteon 12-24-2016 Bacteria LM.HPF #/area (Urine sed) 2+ /hpf None Seen [facility] Work Phone: Epithelial cells LM.HPF #/area (Urine sed) 0-5 SEEN Invalid Interpretation Code 5-10 [facility] Work Phone: Mucus Ql (Urine sed) 0 SEEN [facility] Work Phone: RBC LM.HPF #/vol (Urine sed) 0 SEEN Invalid Interpretation Code 0-5 [facility] Work Phone: Urine, bacteria in sediment 2 /[HPF] Invalid Interpretation Code None Seen [facility] Work Phone: Urine, mucus presence in sediment 0 SEEN Invalid Interpretation Code [facility] Work Phone: WBC #/vol (Bld) 10-25 SEEN 0-5 [facility] Work Phone: WBC (Leukocytes) 10-25 SEEN Invalid Interpretation Code 0-5 [facility] Work Phone: [facility] Documentation of current medications (procedure) Done Invalid Interpretation Code [facility] Work Phone: Protein mass conc Done [facility] Work Phone: Vital Signs Date Time Vital Sign Value Performing Clinician Facility 05-19-2024 10:20-0500 Body height 154.9 cm Omar Saab MD Work Phone: [facility] 05-19-2024 10:20-0500 Body mass index (BMI) [Ratio] 26.07 kg/m2 Omar Saab MD Work Phone: [facility] 05-19-2024 10:20-0500 Body temperature 98.01 [degF] Omar Saab MD Work Phone: [facility] 05-19-2024 10:20-0500 Body weight 62.6 kg Omar Saab MD Work Phone: [facility] 05-19-2024 10:20-0500 Diastolic blood pressure 67 mm[Hg] Omar Saab MD Work Phone: [facility] 05-19-2024 10:20-0500 Heart rate 85 /min Omar Saab MD Work Phone: [facility] 05-19-2024 10:20-0500 Respiratory rate 16 /min Omar Saab MD Work Phone: 7(008)143-512255 [place] [address] 05-19-2024 10:20-0500 SaO2% (BldA) [Mass fraction] 96 % Omar Saab MD Work Phone: 7(141)[phone] [place] [address] 05-19-2024 10:20-0500 Systolic blood pressure 145 mm[Hg] Omar Saab MD Work Phone: 1(644)210-668255 [place] [address] 01-30-2024 11:18-0400 Body height 156.2 cm Omar Saab MD Work Phone: 7(089)[phone] [place] [address] Comment on above: Stated 01-30-2024 11:18-0400 Body mass index (BMI) [Ratio] 26.53 kg/m2 Omar Saab MD Work Phone: 5(331)378-821255 [place] [address] 01-30-2024 11:18-0400 Body temperature 97.7 [degF] Omar Saab MD Work Phone: 4(353)066-507455 [place] [address] 01-30-2024 11:18-0400 Body weight 64.73 kg Omar Saab MD Work Phone: 9(795)[phone] [place] [address] 01-30-2024 11:18-0400 Diastolic blood pressure 78 mm[Hg] Omar Saab MD Work Phone: 9(899)[phone] [place] [address] 01-30-2024 11:18-0400 Heart rate 76 /min Omar Saab MD Work Phone: 9(851)297-853655 [place] [address] 01-30-2024 11:18-0400 Respiratory rate 14 /min Omar Saab MD Work Phone: 5(274)[phone] [place] [address] 01-30-2024 11:18-0400 SaO2% (BldA) [Mass fraction] 96 % Omar Saab MD Work Phone: [facility] 01-30-2024 11:18-0400 Systolic blood pressure 124 mm[Hg] Omar Saab MD Work Phone: [facility] 07-15-2023 09:00-0500 Body mass index (BMI) [Ratio] 28.44 kg/m2 Alfredo Butterfiedl MD, PhD Work Phone: [facility] 07-15-2023 09:00-0500 Body temperature 97 [degF] Alfredo Butterfield MD, PhD Work Phone: [facility] 07-15-2023 09:00-0500 Body weight 63.87 kg Alfredo Butterfield MD, PhD Work Phone: [facility] 07-15-2023 09:00-0500 Diastolic blood pressure 76 mm[Hg] Alfredo Butterfield MD, PhD Work Phone: [facility] 07-15-2023 09:00-0500 Heart rate 76 /min Alfredo Butterfield MD, PhD Work Phone: [facility] 07-15-2023 09:00-0500 Respiratory rate 16 /min Alfredo Butterfield MD, PhD Work Phone: [facility] 07-15-2023 09:00-0500 Systolic blood pressure 116 mm[Hg] Alfredo Butterfield MD, PhD Work Phone: [facility] 03-17-2023 08:43-0500 Body height 157.48 cm [employer] PREPARER-Sindi Ramirez [employer]ER Work Phone: [facility] 03-17-2023 08:43-0500 Body mass index (BMI) [Ratio] 25.7 kg/m2 [employer] PRE[employer]ER-Sindi Ramirez [employer] PREPARER Work Phone: [facility] 03-17-2023 08:43-0500 Body weight 63.72 kg [employer]STER PREPARER-Sindi Ramirez [employer]STER PREPARER Work Phone: [facility] 03-17-2023 08:43-0500 Diastolic blood pressure 78 mm[Hg] [employer] PREPARER-Sindi Ferrarai James [employer]STER PREPARER Work Phone: [facility] 03-17-2023 08:43-0500 Systolic blood pressure 130 mm[Hg] [employer] PREPARER-C Adrián Ramirez [employer]STER PREPARER Work Phone: [facility] 02-22-2023 15:41-0400 Body height 149.9 cm Sukh Argueta MD Work Phone: [facility] 02-22-2023 15:41-0400 Body mass index (BMI) [Ratio] 27.27 kg/m2 Sukh Argueta MD Work Phone: [facility] 02-22-2023 15:41-0400 Body temperature 96.69 [degF] Sukh Argueta MD Work Phone: [facility] 02-22-2023 15:41-0400 Body weight 61.24 kg Sukh Argueta MD Work Phone: [facility] 02-22-2023 15:41-0400 Heart rate 64 /min Sukh Argueta MD Work Phone: [facility] 02-22-2023 15:41-0400 SaO2% (BldA) [Mass fraction] 98 % Sukh Argueta MD Work Phone: [facility] 02-18-2023 10:09-0400 Body height 152 cm Dima Alaniz DO Work Phone: [facility] 02-18-2023 10:09-0400 Body mass index (BMI) [Ratio] 27.37 kg/m2 Dima Alaniz DO Work Phone: [facility] 02-18-2023 10:09-0400 Body weight 63.23 kg Dima Alaniz DO Work Phone: [facility] 02-18-2023 10:09-0400 Diastolic blood pressure 72 mm[Hg] Dima Alaniz DO Work Phone: [facility] 02-18-2023 10:09-0400 Heart rate 77 /min Dima Alaniz DO Work Phone: [facility] 02-18-2023 10:09-0400 Systolic blood pressure 118 mm[Hg] Dima Alaniz DO Work Phone: [facility] 01-04-2023 15:21-0400 Body height 157.5 cm Sukh Argueta MD Work Phone: [facility] 01-04-2023 15:21-0400 Body mass index (BMI) [Ratio] 24.87 kg/m2 Sukh Argueta MD Work Phone: [facility] 01-04-2023 15:21-0400 Body temperature 96.6 [degF] Sukh Argueta MD Work Phone: [facility] 01-04-2023 15:21-0400 Body weight 61.69 kg Sukh Argueta MD Work Phone: [facility] 01-04-2023 15:21-0400 Heart rate 92 /min Sukh Argueta MD Work Phone: [facility] 01-04-2023 15:21-0400 SaO2% (BldA) [Mass fraction] 97 % Sukh Argueta MD Work Phone: [facility] 12-28-2022 08:24-0400 Body height 157.5 cm Sukh Argueta MD Work Phone: [facility] 12-10-2022 09:20-0400 Body height 157.5 cm Sukh Argueta MD Work Phone: [facility] 12-10-2022 09:20-0400 Body mass index (BMI) [Ratio] 24.87 kg/m2 Sukh Argueta MD Work Phone: [facility] 12-10-2022 09:20-0400 Body temperature 97 [degF] Sukh Argueta MD Work Phone: [facility] 12-10-2022 09:20-0400 Body weight 61.69 kg Sukh Argueta MD Work Phone: [facility] 12-10-2022 09:20-0400 Heart rate 74 /min Sukh Argueta MD Work Phone: [facility] 12-10-2022 09:20-0400 SaO2% (BldA) [Mass fraction] 97 % Sukh Argueta MD Work Phone: [facility] 07-27-2022 10:39-0400 Body height 157.5 cm Becki Garcia MD Work Phone: [facility] 07-27-2022 10:39-0400 Body mass index (BMI) [Ratio] 24.91 kg/m2 Becki Garcia MD Work Phone: [facility] 07-27-2022 10:39-0400 Body temperature 97.5 [degF] Becki Garcia MD Work Phone: [facility] 07-27-2022 10:39-0400 Body weight 61.78 kg Becki Garcia MD Work Phone: [facility] 07-27-2022 10:39-0400 Diastolic blood pressure 70 mm[Hg] Becki Garcia MD Work Phone: [facility] 07-27-2022 10:39-0400 Heart rate 88 /min Becki Garcia MD Work Phone: [facility] 07-27-2022 10:39-0400 Respiratory rate 12 /min Becki Garcia MD Work Phone: [facility] 07-27-2022 10:39-0400 Systolic blood pressure 120 mm[Hg] Becki Garcia MD Work Phone: [facility] 07-23-2022 08:59-0400 Body height 157.5 cm Sukh Argueta MD Work Phone: [facility] 07-23-2022 08:59-0400 Body mass index (BMI) [Ratio] 24.51 kg/m2 Sukh Argueta MD Work Phone: [facility] 07-23-2022 08:59-0400 Body temperature 97.2 [degF] Sukh Argueta MD Work Phone: [facility] 07-23-2022 08:59-0400 Body weight 60.78 kg Sukh Argueta MD Work Phone: [facility] 07-23-2022 08:59-0400 Heart rate 75 /min Sukh Argueta MD Work Phone: [facility] 07-23-2022 08:59-0400 SaO2% (BldA) [Mass fraction] 96 % Sukh Argueta MD Work Phone: [facility] 06-22-2022 09:54-0500 Body weight 60.78 kg Becki Garcia MD Work Phone: [facility] 06-22-2022 09:54-0500 Diastolic blood pressure 64 mm[Hg] Becki Garcia MD Work Phone: [facility] 06-22-2022 09:54-0500 Heart rate 76 /min Becki Garcia MD Work Phone: [facility] 06-22-2022 09:54-0500 Respiratory rate 16 /min Becki Garcia MD Work Phone: [facility] 06-22-2022 09:54-0500 Systolic blood pressure 120 mm[Hg] Becki Gracia MD Work Phone: [facility] 02-18-2022 15:50-0400 Body height 157.48 cm [employer]STER PREPARER-C Adrián Hawkinss [employer]YSTER PREPARER Work Phone: [facility] Work Phone: 02-18-2022 15:49-0400 Body mass index (BMI) [Ratio] 24.1 kg/m2 [employer]ER[employer]C Adrián Ramirez [employer]STER PREPARER Work Phone: [facility] Work Phone: 02-18-2022 15:49-0400 Body weight 59.87 kg [employer]STER PREPARER-C Adrián Hawkinss [employer]STER PREPARER Work Phone: [facility] Work Phone: 02-18-2022 15:49-0400 Diastolic blood pressure 72 mm[Hg] [employer] PREPARER-C Adrián Ramirez [employer]STER PREPARER Work Phone: [facility] Work Phone: 02-18-2022 15:49-0400 Systolic blood pressure 118 mm[Hg] [employer] PREPARER-C Adrián Ramirez [employer]STER PREPARER Work Phone: [facility] Work Phone: 01-03-2017 09:40-0400 BMI (Body Mass Index) 28.21 kg/m2 Milagro Thomas NP [facility] 01-03-2017 09:40-0400 Body Temperature 97.4 [degF] Milagro Thomas NP [facility] 01-03-2017 09:40-0400 Body Temperature 97.39 [degF] Milagro Thomas [employer] [facility] 01-03-2017 09:40-0400 BP Diastolic 79 mm[Hg] Milagro Thomas NP [facility] 01-03-2017 09:40-0400 BP Systolic 124 mm[Hg] Milagro [place] [employer] PREPARER [facility] 01-03-2017 09:40-0400 Height 156.21 cm Milagro Luistings [employer]STER PREPARER [facility] 01-03-2017 09:40-0400 Pulse (Heart Rate) 75 /min Milagro [place] [employer]ER [facility] 01-03-2017 09:40-0400 Respiratory Rate 17 /min Milagro Thomas [employer]ER [facility] 01-03-2017 09:40-0400 Weight 68.86 kg Milagro [place] [employer] [facility] 01-03-2017 09:40-0400 Weight 68.85 kg Milagro Luistings [employer] PRE[employer]ER [facility] 02-18-2011 08:10-0400 Body Temperature 98.1 [degF] Stacy Santiago RN RN [facility] Work Phone: 02-18-2011 08:10-0400 BP Diastolic 73 mm[Hg] Stacy Santiago RN RN [facility] Work Phone: 02-18-2011 08:10-0400 BP Systolic 111 mm[Hg] Stacy Santiago RN RN [facility] Work Phone: 02-18-2011 08:10-0400 Pulse (Heart Rate) 79 /min Stacy Santiago RN RN [facility] Work Phone: Encounters Encounter Date Encounter Type Care Provider Facility Start: 03-07-2025 End: 03-07-2025 Office outpatient visit 25 minutes Orestes Gill PA-C Work Phone: Sports Medicine [facility] Comment on above: Right knee pain, uns pecified chronicity (Primary Dx) Start: 03-07-2025 ambulatory SELF SELF Facility:[facility] Start: 01-23-2025 End: 01-23-2025 Office outpatient new 45 minutes [facility] Work Phone: [facility]opedic [facility] Comment on above: Right knee pain, uns pecified chronicity (Primary Dx); Primary osteoarthritis of right knee Start: 01-23-2025 ambulatory EN DIXON Facility :[facility] Start: 01-23-2025 End: 01-23-2025 Subsequent hospital visit by physician En Dixon MD Work Phone: Imaging [facility] [place] Comment on above: Arrived Start: 10-12-2024 ambulatory DIMA Salmon ty:[facility] Start: 10-12-2024 End: 10-12-2024 Subsequent hospital visit by physician Dima Alaniz DO Work Phone: [facility] Comment on above: Arrived Start: 05-19-2024 End: 05-19-2024 Emergency department patient visit [facility] Start: 04-13-2024 End: 04-13-2024 Office outpatient visit 25 minutes Dima Alaniz DO Work Phone: Endocrinology [facility] Comment on above: Age related osteopor osis, unspecified pathological fracture presence (Primary Dx) Start: 04-13-2024 ambulatory OMAR Frost ility:[facility] Start: 03-19-2024 End: 03-19-2024 ambulatory MARIA EUGENIA IVORY DOYLE Facility:[facility] Start: 03-19-2024 End: 03-19-2024 ambulatory Milagro Thomas NP Facility:[facility] Start: 01-30-2024 End: 01-30-2024 Office outpatient visit 25 minutes Omar Saab MD Work Phone: [facility] Comment on above: Facial rash (Primary Dx); Laryngopharyngeal reflux (LPR); Joint stiffness; Pain in toes of both feet; Gastroesophageal reflux disease without esophagitis; Osteoarthritis of cervical spine, unspecified spinal osteoarthritis complication status Start: 10-14-2023 End: 10-14-2023 Office outpatient new 45 minutes Omar Saab MD Work Phone: [facility] Comment on above: Annual physical exam (Primary Dx); Establishing care with new doctor, encounter for; Screening, iron deficiency anemia; Encounter for vitamin deficiency screening; Screening for thyroid disorder; Screening for cardiovascular condition; Medication management; Screening for diabetes mellitus; Age-related osteoporosis without current pathological fracture; Need for hepatitis C screening test; Incidental lung nodule, > 3mm and < 8mm; Hematuria, unspecified type; Vitamin D deficiency; Intermittent right upper quadrant abdominal pain; Generalized anxiety disorder; Need for prophylactic vaccination against Streptococcus pneumoniae (pneumococcus); History of melanoma; Screening for malignant neoplasm of colon; Encounter for screening mammogram for malignant neoplasm of breast; Melanoma in situ of lower extremity, including hip, unspecified laterality; Primary osteoarthritis of both hands; Neck pain on left side Start: 10-14-2023 End: 10-14-2023 Patient encounter procedure Omar Saab MD Work Phone: [facility] Work Phone: Start: 07-15-2023 End: 07-25-2023 Office outpatient visit 15 minutes Alfredo Butterfield MD, PhD Work Phone: Primary Care - Family Medicine [facility] Comment on above: Age-related osteopor osis without current pathological fracture (Primary Dx); Gastroesophageal reflux disease without esophagitis; Intermittent right upper quadrant abdominal pain Start: 03-17-2023 End: 03-17-2023 Patient encounter procedure INDRA Ramirez NP Work Phone: [facility] Work Phone: Start: 03-17-2023 End: 03-17-2023 ambulatory OYSTER PREPARER-Sindi Ramirez OYSTER PREPARER Work Phone: [facility] Work Phone: Start: 03-17-2023 End: 03-17-2023 Patient encounter procedure OYSTER PREPARER-Sindi Ramirez OYSTER PREPARER Work Phone: [facility] Work Phone: Start: 02-22-2023 End: 02-22-2023 Office outpatient visit 15 minutes Sukh Argueta MD Work Phone: Spine Care [facility] Comment on above: Neck pain (Primary D x); Spondylosis of cervical joint without myelopathy Start: 02-18-2023 End: 02-18-2023 Subsequent hospital visit by physician Dima Alaniz DO Work Phone: [facility] Comment on above: Arrived Start: 02-18-2023 End: 02-18-2023 Office outpatient new 45 minutes Dima Alaniz DO Work Phone: Endocrinology [facility] Comment on above: Age related osteopor osis, unspecified pathological fracture presence (Primary Dx); Height loss; Vitamin D deficiency Start: 01-04-2023 End: 01-04-2023 Patient encounter procedure Sukh Argueta MD Work Phone: [facility] Comment on above: Neck pain (Primary D x); Spondylosis of cervical joint without myelopathy; Degenerative disc disease, cervical; Arthropathy of cervical facet joint; Myofascial pain Start: 12-28-2022 End: 12-28-2022 Subsequent hospital visit by physician Sukh Argueta MD Work Phone: [facility] Comment on above: Arrived Start: 12-10-2022 End: 12-10-2022 Office outpatient visit 25 minutes Sukh Argueta MD Work Phone: [facility] Comment on above: Neck pain, chronic ( Primary Dx); Facet arthropathy, cervical; Spondylosis of cervical joint without myelopathy; Myofascial pain Start: 10-11-2022 End: 10-11-2022 Subsequent hospital visit by physician Becki Garcia MD Work Phone: [facility] Comment on above: Arrived Start: 07-27-2022 End: 07-27-2022 Periodic preventive med est patient 65yrs& older Becki Garcia MD Work Phone: Primary Care - Family Medicine [facility] Comment on above: Neck pain (Primary D x); Cervical cancer screening Start: 07-23-2022 End: 07-23-2022 Office consultation new/estab patient 60 min Sukh Argueta MD Work Phone: [facility] Comment on above: Pain in neck (Primar y Dx); Facet arthropathy, cervical; Spondylosis of cervical joint without myelopathy; Degenerative disc disease, cervical Start: 06-22-2022 End: 06-22-2022 Subsequent hospital visit by physician Becki Garcia MD Work Phone: Imaging [facility] Comment on above: Arrived Start: 06-22-2022 End: 06-22-2022 Patient encounter procedure Becki Garcia MD Work Phone: [facility] Comment on above: Pain in neck (Primar y Dx); Family history of multiple myeloma; Polyp of ascending colon, unspecified type; Malignant melanoma, unspecified site; Preventative health care; Estrogen deficiency; Lipid screening; Brittle nails; Bruising Start: 06-22-2022 End: 06-22-2022 Patient encounter status Becki Garcia MD Work Phone: [facility] Start: 02-18-2022 End: 02-18-2022 Patient encounter procedure OYSTER PREPARER-C Adrián Ramirez OYSTER PREPARER Work Phone: [facility] Start: 02-18-2022 End: 02-18-2022 ambulatory OYSTER PREPARER-C Adrián Ramirez OYSTER PREPARER Work Phone: [facility] Work Phone: Start: 02-18-2022 End: 02-18-2022 Patient encounter procedure OYSTER PREPARER-C Adrián Ramirez OYSTER PREPARER Work Phone: [facility] Start: 12-02-2021 End: 12-02-2021 ambulatory Olive Carcamoutzman BUSINESS CONTINUITY GLOBAL DIRECTOR Work Phone: [facility] Comment on above: COVID-19 (Primary Dx ) Start: 12-02-2021 End: 12-02-2021 Telemedicine consultation with patient Olive Dejesus APRN.BUSINESS CONTINUITY GLOBAL DIRECTOR Work Phone: [facility] Start: 02-14-2020 End: 02-14-2020 Subsequent hospital visit by physician Prabhakar [facility] Work Phone: Radiology Comment on above: ov Procedures Date Procedure Procedure Detail Performing Clinician Start: 01-23-2025 Arthrocentesis aspir &/inj major jt/bursa w/o us Orestes Gill PA-C Work Phone: Start: 01-23-2025 Radiologic exam knee complete 4/more views En Dixon MD Work Phone: Start: 10-12-2024 Dxa bone density shanique dy 1/> sites axial skel Dima Alaniz DO Work Phone: Start: 05-19-2024 Radiologic examinati on knee 3 views Tatiana Rae CORE STRIPPER-BUSINESS CONTINUITY GLOBAL DIRECTOR Work Phone: Start: 01-30-2024 Assay of blood/uric acid Omar Saab MD Work Phone: Start: 01-30-2024 C-reactive protein Baldomero Saab MD Work Phone: Start: 10-14-2023 CBC AND ELECTRONIC DIFF Omar Saab MD Work Phone: Start: 10-14-2023 Complete blood count with white cell differential, automated Omar Saab MD Work Phone: Start: 10-14-2023 Comprehensive metabo lic panel Omar Saab MD Work Phone: Start: 10-14-2023 Hepatitis c antibody Gr elma Saab MD Work Phone: Start: 10-14-2023 Urnls dip stick/tabl et reagent auto microscopy Omar Saab MD Work Phone: Start: 10-14-2023 Lipid 1996 panel - S tito or Plasma Omar Saab MD Work Phone: Start: 03-17-2023 Screening mammography N P-C Adrián Ramirez OYSTER PREPARER Work Phone: Start: 02-18-2023 End: 02-18-2023 Radex spine lumbosacral 2/3 views Dima Alaniz DO Work Phone: Start: 01-04-2023 Injection single/fixer supervisor trigger point 3/> muscles Sukh Argueta MD Work Phone: Start: 10-11-2022 Dxa bone density shanique dy 1/> sites axial skel Becki Garcia MD Work Phone: Start: 07-27-2022 Microscopic observat ion [Identifier] in Cervix by Cyto stain Omar Saab MD Work Phone: Start: 06-22-2022 Radex spine cervical 4 or 5 views Becki Garcia MD Work Phone: Start: 06-22-2022 Lipid 1996 panel - S tito or Plasma Becki Garcia MD Work Phone: Start: 02-18-2022 Screening mammography N P-C Adrián Ramirez OYSTER PREPARER Work Phone: Start: 07-20-2021 Colonoscopy Xr Milo Work Phone: Start: 02-06-2021 Mammography [facility] CORE STRIPPER.BUSINESS CONTINUITY GLOBAL DIRECTOR Work Phone: Start: 02-14-2020 Radex ribs uni w/posteroant ch minimum 3 views Jagruti Skinner MD Start: 10-20-2017 Adult [facility].BUSINESS CONTINUITY GLOBAL DIRECTOR Work Phone: Start: 10-15-2017 Lipid 1996 panel - S tito or Plasma Xr Terrell Work Phone: Start: 01-03-2017 End: 01-03-2017 Urinalysis Milagro Thomas OYSTER PREPARER Start: 12-24-2016 End: 12-24-2016 Urinalysis Stacy Santiago RN RN Start: 12-23-2016 End: 12-24-2016 Urinalysis complete panel - Urine Namrata Huitron MD Work Phone: Start: 07-04-2012 [facility] CORE STRIPPER.BUSINESS CONTINUITY GLOBAL DIRECTOR Work Phone: Plan of Treatment Date Care Activity Detail Author Start: 2031 RSV Vaccine (1 - 1-dose 75+ series) RSV Vaccine (1 - 1-dose 75+ series) [facility] Start: 12-14-2030 Tetanus vaccination TETANUS [facility] Start: 12-14-2030 Urine microalbumin profile DTaP,Tdap,Td Vaccine (4 - Td or Tdap) [facility] Start: 10-13-2028 Lipid panel LIPID SCREENING [facility] Start: 07-28-2027 Screening for malignant neoplasm of cervix PAP SMEAR [facility] Start: 06-22-2027 Lipid panel LIPID SCREENING [facility] Start: 07-20-2026 Screening for malignant neoplasm of colon [facility] Start: 10-12-2025 Screening for osteoporosis DEXA SCAN DISCUSSION [facility] Start: 08-05-2025 COVID-19 VACCINE ( season) COVID-19 VACCINE () [facility] Start: 06-18-2025 End: 06-18-2025 Patient encounter procedure End[facility]inology [facility] Start: 05-13-2025 End: 05-13-2025 ambulatory 05/13/2025 9:15 AM EST Rehab Services Visit [facility] [address] [place] [address] Orestes Gill PA-C [address] [place] [address] Hernán Chase, PT [address] [place] [address] [facility] Start: 04-24-2025 End: 04-24-2025 Patient encounter procedure 04/24/2025 11:00 AM EST Office Visit [facility] [place] [address] [place] [address] Orestes Gill PA-C [address] [place] [address] [facility] Start: 03-07-2025 End: 03-07-2025 Patient encounter procedure 03/07/2025 9:00 AM EDT Office Visit [facility] [address] [place] [phone] Orestse Gill PA-C [address] [place] [address] [facility] Start: 02-15-2025 End: 02-15-2025 Patient encounter procedure 02/15/2025 11:00 AM EDT Office Visit [facility] [address] [place] [phone] Omar Saab MD [address] [place] [address] [facility] Start: 01-07-2025 Influenza vaccination INFLUENZA VACCINE (#1) [facility] Start: 11-04-2024 Urine microalbumin profile DTAP,TDAP,TD (3 - Td or Tdap) [facility] Start: 10-16-2024 End: 10-16-2024 Patient encounter procedure 10/16/2024 2:30 PM EDT Office Visit [facility] [address] [place] [address] Turner Chatman MD [address] [place] [address] [facility] Start: 10-12-2024 End: 04-13-2025 DXA Skeletal system.axial Views for bone density BONE DENSITY AXIAL (HIP, PELVIS, SPINE) Imaging Routine Age related osteoporosis, unspecified pathological fracture presence Expected: 10/12/2024, Expires: 04/13/2025 [facility] Comment on above: Expected: 10/12/2024, Expires: Start: 10-12-2024 End: 10-12-2024 Patient encounter procedure 10/12/2024 9:30 AM EDT Appointment [facility] [place] [address] Dima Alaniz, DO [address] [place] [address] [facility] Start: 08-28-2024 COVID-19 VACCINE () COVID-19 VACCINE () [facility] Start: 05-29-2024 DIABETES SCREEN DIABETES SCREEN [facility] Start: 05-29-2024 Diabetes Screening Diabetes Screening [facility] Start: 04-13-2024 End: 04-13-2025 C-TELOPEPTIDE C-TELOPEPTIDE Lab Routine Age related osteoporosis, unspecified pathological fracture presence Expected: 04/13/2024, Expires: 04/13/2025 [facility] Comment on above: Expected: 04/13/2024, Expires: Start: 04-13-2024 End: 04-13-2025 PROCOLLAGEN TYPE I INTACT N TERMINAL PROCOLLAGEN TYPE I INTACT N TERMINAL Lab Routine Age related osteoporosis, unspecified pathological fracture presence Expected: 04/13/2024, Expires: 04/13/2025 [facility] Comment on above: Expected: 04/13/2024, Expires: Start: 04-13-2024 End: 04-13-2025 VITAMIN D (25-HYDROXY,TOTAL) VITAMIN D (25-HYDROXY,TOTAL) Lab Routine Age related osteoporosis, unspecified pathological fracture presence Expected: 04/13/2024, Expires: 04/13/2025 [facility] Comment on above: Expected: 04/13/2024, Expires: Start: 03-18-2024 COVID-19 VACCINE () COVID-19 VACCINE () [facility] Start: 02-24-2024 End: 02-24-2024 Patient encounter procedure 02/24/2024 8:30 AM EDT Office Visit [facility] [address] [facility] [address] [place] [phone] Dima Alaniz, DO [address] [place] [address] [facility] Start: 02-16-2024 Screening for malignant neoplasm of breast MAMMOGRAM SCREENING DISCUSSION [facility] Start: 01-11-2024 COVID-19 VACCINE ( season) COVID-19 VACCINE () [facility] Start: 01-08-2024 Covid-19 Vaccine () Covid-19 Vaccine () [facility] Start: 01-08-2024 Influenza vaccination INFLUENZA VACCINE (#1) [facility] Start: 10-12-2023 Screening for osteoporosis DEXA SCAN DISCUSSION [facility] Start: 09-02-2023 End: 09-02-2023 Patient encounter procedure 09/02/2023 11:00 AM EDT Office Visit Primary Care - Family Medicine [facility] [address] [facility] [address] [place] [phone] Alfredo Butterfield MD, PhD [address] [facility] [address] [place] [phone] Primary Care - Family Medicine [facility] Start: 07-28-2023 Screening for malignant neoplasm of cervix CERVICAL CANCER SCREENING DISCUSSION [facility] Start: 06-20-2023 End: 06-20-2023 Patient encounter procedure 06/20/2023 12:45 PM EST Office Visit [facility]in[facility] [address] [facility] [address] [place] [phone] Tamanna Khanna MD, PhD [address] [facility] [address] [place] [address] [facility] Start: 05-09-2023 Advance Directive Discussion Advance Directive Discussion [facility] Start: 03-01-2023 COLOGUARD (FIT-DNA) COLOGUARD (FIT-DNA) [facility] Start: 03-01-2023 Screening for malignant neoplasm of colon Cologuard (FIT-DNA) [facility] Start: 02-22-2023 End: 02-22-2023 Patient encounter procedure 02/22/2023 4:00 PM EDT Office Visit [facility] [address] [phone] Sukh Argueta MD [address] [place] [address] [facility] Start: 02-18-2023 End: 02-19-2024 BONE ALKALINE PHOSPHATASE [facility] Comment on above: Expected: 02/18/2023, Expires: Start: 02-18-2023 End: 02-19-2024 CALCIUM, URINE 24HR CALCIUM, URINE 24HR Fluids Routine Age related osteoporosis, unspecified pathological fracture presence Expected: 02/18/2023, Expires: 02/19/2024 [facility] Comment on above: Expected: 02/18/2023, Expires: Start: 02-18-2023 End: 02-19-2024 CREATININE, 24 HR URINE CREATININE, 24 HR URINE Fluids Routine Age related osteoporosis, unspecified pathological fracture presence Expected: 02/18/2023, Expires: 02/19/2024 [facility] Comment on above: Expected: 02/18/2023, Expires: Start: 02-18-2023 End: 02-19-2024 PROCOLLAGEN TYPE I INTACT N TERMINAL [facility] Comment on above: Expected: 02/18/2023, Expires: Start: 02-18-2023 End: 02-19-2024 PROTEIN ELECTROPHORESIS SERUM, WITH REFLEX [facility] Comment on above: Expected: 02/18/2023, Expires: Start: 02-18-2023 Screening for malignant neoplasm of breast Mammogram Screening [facility] Start: 02-18-2023 End: 02-19-2024 VITAMIN D (25-HYDROXY,TOTAL) [facility] Comment on above: Expected: 02/18/2023, Expires: Start: 02-18-2023 End: 02-19-2024 VITAMIN D, (1,25 DIHYDROXY) [facility] Comment on above: Expected: 02/18/2023, Expires: Start: 02-15-2023 Screening for malignant neoplasm of breast MAMMOGRAM SCREENING DISCUSSION [facility] Start: 01-07-2023 COVID-19 VACCINE ( season) COVID-19 VACCINE ( season) [facility] Start: 01-07-2023 COVID-19 VACCINE ( season) COVID-19 VACCINE ( season) [facility] Start: 01-07-2023 COVID-19 VACCINE ( season) COVID-19 VACCINE () [facility] Start: 01-07-2023 Influenza vaccination [facility] Start: 01-04-2023 End: 01-04-2023 Patient encounter procedure 01/04/2023 4:00 PM EDT Office Visit [facility] [address] [address] Sukh Argueta MD [address] [facility] 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. [place] [phone] [facility] Start: 09-02-2022 End: 09-02-2022 Patient encounter procedure 09/02/2022 Office Visit Dermatology Fallon Nur MD [address] [facility] [address] [place] [address] Division of Dermatology Start: 07-27-2022 End: 07-27-2022 Patient encounter procedure 07/27/2022 Office Visit Family Medicine Becki Garcia MD [address] [place] [phone] Primary Care - Family Medicine [facility] Start: 06-22-2022 End: 06-22-2023 Bone density scan BONE DENSITY AXIAL (HIP, PELVIS, SPINE) Imaging Routine Estrogen deficiency Expected: 06/22/2022, Expires: 06/22/2023 [facility] Comment on above: Expected: 06/22/2022, Expires: Start: 06-22-2022 COVID-19 VACCINE (3 - Pfizer series) COVID-19 VACCINE (3 - Pfizer series) [facility] Start: 06-15-2022 Screening for malignant neoplasm of colon COLORECTAL CANCER SCREENING DISCUSSION [facility] Start: 04-16-2022 COVID-19 VACCINE (3 - Booster for Pfizer series) COVID-19 VACCINE (3 - Booster for Pfizer series) [facility] Start: 03-12-2022 COVID-19 VACCINE (2 - Pfizer series) COVID-19 VACCINE (2 - Pfizer series) [facility] Start: 02-06-2022 Mammography MAMMOGRAM [facility] Start: 01-07-2022 Influenza vaccination [facility] Start: 12-14-2021 Pneumococcal vaccination [facility] Start: 12-14-2021 Pneumococcal Vaccine: 65+ (2 of 2 - PCV) Pneumococcal Vaccine: 65+ (2 of 2 - PCV) [facility] Start: 2021 ADVANCE DIRECTIVE DISCUSSION ADVANCE DIRECTIVE DISCUSSION [facility] Start: 2021 BONE DENSITY BONE DENSITY [facility] Start: 2021 PNEUMOCOCCAL: 65+ (1 - PCV) PNEUMOCOCCAL: 65+ (1 - PCV) [facility] Start: 2021 Screening for osteoporosis Bone Density Screening [facility] Start: 03-01-2021 FECAL OCCULT BLOOD FECAL OCCULT BLOOD [facility] Start: 03-01-2021 Screening for malignant neoplasm of colon Fecal Occult Blood [facility] Start: 03-02-2020 COLORECTAL CANCER SCREENING COLORECTAL CANCER SCREENING [facility] Start: 10-20-2018 Adult depression screening assessment DEPRESSION SCREENING [facility] Start: 07-04-2017 Colonoscopy COLONOSCOPY [facility] Start: 07-04-2017 Screening for malignant neoplasm of colon COLONOSCOPY [facility] Start: 01-19-2017 End: 01-19-2017 Urology Referral [facility] Work Phone: Start: 01-05-2017 End: 01-05-2017 *CUUID - Urine MARSHA Culture - Identificatn *CUUID - Urine MARSHA Culture - Identificatn [facility] Start: 01-03-2017 End: 01-03-2017 Appointment Appointment [facility] Work Phone: Start: 01-03-2017 End: 01-03-2017 *CUUID - Urine MARSHA Culture - Identificatn *CUUID - Urine MARSHA Culture - Identificatn [facility] Start: 01-03-2017 End: 01-03-2017 Bacteria genital culture *CUV - Culture, VAG/CX [facility] [place] Start: 12-23-2016 End: 12-24-2016 Urinalysis complete panel - Urine *UAC- Urinalysis, Complete w/ Micro [facility] Work Phone: Start: 12-23-2016 End: 12-23-2016 Urine culture, bacteria *CUUR - Culture, Urine ([place] Count) [facility] Work Phone: Start: [address] COLONOGRAPHY [facility] Start: 2001 Screening for malignant neoplasm of colon [facility] Start: 2001 SIGMOIDOSCOPY SIGMOIDOSCOPY [facility] Start: 1977 Screening for malignant neoplasm of cervix CERVICAL CANCER SCREENING DISCUSSION [facility] Start: 1974 Depression Screening Depression Screening [facility] Start: 1956 Hepatitis C screening HEPATITIS C VIRUS SCREENING [facility] Start: 1956 Screening for osteoporosis DEXA SCAN DISCUSSION [facility] CBC W Auto Different ial panel - Blood [facility] Work Phone: COLOGUARD COLOGUARD Outsid e Labs Routine Polyp of ascending colon, unspecified type Ordered: 2022 [facility] Comment on above: Ordered: 2022 Cytology Cervical or vaginal smear or scraping study CYTOLOGY-FOREST TECHNICIAN, LIQUID BASED Cytology Routine Cervical cancer screening 07/27/2022 11:57 AM EDT [facility] DXA Bone [Mass/Area] Bone density [facility] Work Phone: Lipid 1996 panel - S tito or Plasma [facility] Work Phone: MG Breast - bilatera l Screening [facility] Work Phone: End: 12-28-2022 MR Cervical spine WO contrast [facility] Work Phone: Comment on above: 1 Occurrences starting 12/28/2022 until 12/28/2022 Thyroid stimulating hormone measurement [facility] Work Phone: End: 05-19-2024 US.doppler Lower extremity vein - left [facility] Comment on above: One Time for 1 Occurrences starting 05/09 until 05/19/2024 VITAMIN D (25-HYDROXY,TOTAL) VITAMIN D (25-HYDROXY,TOTAL) Lab Routine Encounter for vitamin deficiency screening Vitamin D deficiency 10/14/2023 9:44 AM EDT [facility] Vitamin D, 25-hydrox y measurement [facility] Work Phone: Immunizations Immunization Date Immunization Notes Care Provider Fa tahira 02-28-2024 influenza virus vacc ine, unspecified formulation [facility] Work Phone: [facility] 10-14-2023 Pneumococcal Conjuga te 20-Valent Vaccine Omar Saab MD Work Phone: [facility] 10-14-2023 pneumococcal Conjuga te, unspecified formulation Dima Alaniz DO Work Phone: [facility] 02-19-2023 RSV, RECOMBINANT, PROTEIN SUBUNIT RSVPREF, ADJUVANT RECONSTITUTED, 0.5 ML, PF (AREXVY) Omar Saab MD Work Phone: [facility] 02-06-2023 Influenza Vaccine, Quadrivalent, Adjuvanted Omar Saab MD Work Phone: [facility] 02-06-2023 influenza virus vacc ine, unspecified formulation Omar Saab MD Work Phone: [facility] 01-07-2023 COVID-19 MRNA (PFIZE R) 12+YR, 30 MCG/0.3 ML () Omar Saab MD Work Phone: [facility] 01-12-2021 influenza, injectabl e, quadrivalent, preservative free Becki Garcia MD Work Phone: [facility] 01-12-2021 influenza virus vacc ine, unspecified formulation Becki Garcia MD Work Phone: [facility] 12-14-2020 pneumococcal polysaccharide vaccine, 23 valent Becki aGrcia MD Work Phone: [facility] 12-14-2020 tetanus toxoid, redu emma diphtheria toxoid, and acellular pertussis vaccine, adsorbed Becki Garcia MD Work Phone: [facility] 08-05-2020 COVID-19 vaccine, fu ll dose (MODERNA) Olive Cosme CORE STRIPPER.[employer]LOBAL DIRECTOR Work Phone: [facility] Work Phone: 07-08-2020 COVID-19 monovalent vaccine (Pfizer) 12yr +, 30mcg/0.3mL Becki Garcia MD Work Phone: [facility] 02-05-2020 influenza, injectabl e, quadrivalent, preservative free Becki Garcia MD Work Phone: [facility] 02-05-2020 influenza, seasonal, injectable Olive Cosme CORE STRIPPER.[employer] GLOBAL DIRECTOR Work Phone: [facility] 11-03-2019 measles, mumps and rubella virus vaccine Olive Cosme CORE STRIPPER.[employer]INESS [employer]INU[employer] GLOBAL DIRECTOR Work Phone: [facility] 02-16-2019 Influenza, injectabl e, Madin Ruskin Canine Kidney, preservative free, quadrivalent Becki Garcia MD Work Phone: [facility] 02-07-2018 influenza, seasonal, injectable Olive Cosme CORE STRIPPER.[employer]INESS [employer]INUITY GLOBAL DIRECTOR Work Phone: [facility] 12-23-2017 zoster vaccine recombinant Olive Cosme CORE STRIPPER.[employer]INESS CONT[employer]UITY GLOBAL DIRECTOR Work Phone: [facility] Work Phone: 10-20-2017 zoster vaccine recombinant Olive Cosme CORE STRIPPER.[employer]INESS CONTINUITY GLOBAL DIRECTOR Work Phone: [facility] 02-16-2016 influenza virus vacc ine, unspecified formulation Olive Cosme CORE STRIPPER.[employer]INESS CONTINUITY GLOBAL DIRECTOR Work Phone: [facility] 11-04-2014 tetanus toxoid, redu emma diphtheria toxoid, and acellular pertussis vaccine, adsorbed Olive Cosme CORE STRIPPER.[employer]INESS CONTINUITY GLOBAL DIRECTOR Work Phone: [facility] 11-23-2012 zoster vaccine, live Olive Cosme CORE STRIPPER.[employer]INESS CONTINUITY GLOBAL DIRECTOR Work Phone: [facility] 03-12-2009 novel Influenza-H1N1 -09, live virus for nasal administration Becki Garcia MD Work Phone: [facility] 06-26-2008 immune globulin, intramuscular Becki Garcia MD Work Phone: [facility] 06-26-2008 immune globulin, intravenous Olive Cosme CORE STRIPPER.[facility] Work Phone: [facility] 06-26-2008 yellow fever vaccine Olive Cosme CORE STRIPPER.[facility] Work Phone: [facility] 03-19-2005 influenza virus vacc ine, whole virus Olive Cosme CORE STRIPPER.[facility] Work Phone: [facility] Work Phone: 08-07-1989 diphtheria and tetan us toxoids, adsorbed for pediatric use Olive Cosme CORE STRIPPER.[facility] Work Phone: [facility] Work Phone: Payers Date Payer Category Payer Self-pay [id number] 2021 Managed Care (unspecified) MEDICARE SUPPLEMENT [id number] 2021 Medicare MEDICARE MEDICAR E A AND B [id number] 2021-Present [phone] [address] [address] [place] [address] Medicare [id number] 2021 Medicare [id number] 2021 Unknown MMO MMO MEDICARE SUPPLEMENT [id number] 2021-Present [phone] [address] [place] [address] Indemnity [id number] 2021 Medicare [id number] 2021 Unknown [id number] 2005 Unknown [id number] 1956 Unknown [id number] 1956 Unknown [id number] 1956 Unknown [id number] 1956 Unknown [id number] 1956 Unknown [id number] 1956 Unknown [id number] Unknown INO [id number] Unknown COMMERCIAL OTHER [id number] Unknown [id number] Unknown [id number] Social History Date Type Detail Facility Start: 06-22-2022 End: 10-14-2023 Tobacco smoking status NHIS Never smoked tobacco [facility] Start: 12-02-2021 End: 03-07-2025 Alcohol intake Current drinker of alcohol (finding) [facility] Start: 12-02-2021 History SDOH Alcohol Frequency 3 [facility] Start: 12-02-2021 History SDOH Alcohol Std Drinks 1 [facility] Start: 12-02-2021 History SDOH Social Connections Phone 5 [facility] Start: 12-02-2021 History SDOH Social Connections Get Together 4 [facility] Start: 12-02-2021 History SDOH Social Connections Membership 2 [facility] Start: 12-02-2021 History SDOH Social Connections Living 8 [facility] Start: 06-19-2012 Tobacco Comment is exposed to second hand smoke [facility] Start: 1955 Sex Assigned At Not on file [facility] Start: 11-22-2021 End: 12-02-2021 Exposure to SARS-CoV-2 (event) Yes [facility] Start: 02-18-2022 End: 03-17-2023 Tobacco smoking status NHIS Unknown if ever smoked [facility] Start: 1955 Sex Assigned At Female W [facility] Start: 06-22-2022 End: 10-14-2023 Tobacco use and exposure Smokeless tobacco non-user [facility] Start: 06-12-2022 End: 03-06-2023 Exposure to SARS-CoV-2 (event) Unable to assess [facility] Start: 06-22-2022 End: 12-10-2022 History of Social function [facility] Start: 06-22-2022 End: 12-10-2022 Tobacco use panel [facility] Adolescent depressio n screening assessment 0 [facility] Start: 10-14-2023 Tobacco Comment Father smoked cigerettes in car when I was young [facility] Start: 10-14-2023 Alcohol Comment 2-3 glasses wi ne per week [facility] Start: 01-15-2020 End: 02-14-2020 Exposure to SARS-CoV-2 (event) Not sure [facility] Start: 05-19-2024 Gender identity Identifies as female gender (finding) [facility] Start: 05-19-2024 Sexual orientation Heterosexual (fin ding) [facility] Start: 02-26-2022 Sex Female (finding) [facility] NEGATED: Highlighted rowStart: NINF History of tobacco use Passive smoker [facility] Functional Status Date Assessment Result Facility 06-22-2022 Are you deaf, or do you have serious difficulty hearing No 06/22/2022 11:09 AM Iman Tyler, CONCHITA No [facility] 06-22-2022 Are you blind, or do you have serious difficulty seeing, even when wearing glasses No 06/22/2022 11:09 AM Iman Tyler, CONCHITA No [facility] 06-22-2022 Do you have serious difficulty walking or climbing stairs No 06/22/2022 11:09 AM Iman Tyler, RN No [facility] 06-22-2022 Do you have difficul ty dressing or bathing No 06/22/2022 11:09 AM Iman Tyler, RN No [facility] 06-22-2022 Because of a physica l, mental, or emotional condition, do you have difficulty doing errands alone such as visiting a physician's office or shopping No 06/22/2022 11:09 AM Iman Tyler, RN No [facility] Mental Status Date Assessment Result Facility 06-22-2022 Because of a physica l, mental, or emotional condition, do you have serious difficulty concentrating, remembering, or making decisions No 06/22/2022 11:09 AM Iman Tyler RN No [facility] Clinical Notes 02-14-2020 to 03-07-2025 Orestes Gill PA-C - 03/07/2025 9:00 AM EDTPatient InstructionsOrestes Gill PA-C - 01/23/2025 12:20 PM EDCaitlin Rae APRN-YURY - 05/19/2024 11:48 AM ESTPatient Instructions Note Date & Type Note Facility 03-07-2025 History of Present illness Narrative Subjective Elisa Cruz is a 69 y.o. female who presents for No chief complaint on file. History of Present Illness The patient is a 69-year-old female who presents today for follow-up on her right knee. She reports that her right knee, which was previously in good condition, has been causing her significant discomfort. The pain is particularly severe at night, often waking her up around 2:00 or 3:00 AM. She describes the sensation as achy and experiences pain even when lying on her side. Despite receiving an injection, which provided some relief, she continues to experience pain, particularly when sitting. She notes that the knee is less swollen than before. She recently returned from a two-week trip during which she took great care of her knee. However, after attempting to walk her dog, she experienced a significant increase in pain that night. She is concerned about the possibility of re-injury and is seeking advice on exercises that could help. She has not been using a cane or walker and has been taking meloxicam at night. She used a knee brace during her trip and is considering aquatic therapy as a potential treatment option. She is also interested in continuing her upper body workouts while seated. She has a history of two significant injuries to her left knee, which were managed with physical therapy and have not caused any issues for the past 30 years. SOCIAL HISTORY Exercise: Walking the dog; frequency not specified. Review of Systems Objective Physical Exam Examination of the contralateral left knee reveals: Range of motion from 0 to 130 degrees of flexion Full strength. There are no areas of tenderness. The knee is stable to beverly, posterior drawer, anterior drawer, varus and valgus stress at full extension and 30 degrees of flexion. Examination of the right knee reveals: No skin lesions, erythema, or warmth. Effusion: 0 Range of Motion: 0-120 There is not a fixed flexion contracture There is not a fixed varus deformity Hyperextension Pain: Negative Hyperflexion Pain: negative Shavon: Negative Medial Joint Line Tenderness: Positive Lateral Joint Line Tenderness: Negative Anterior Drawer: Negative Posterior Drawer: Negative Beverly: Negative Valgus Stress: Negative. Varus Stress: Negative Patellar Grind: Negative Strength: Knee extension: 5/5 Knee flexion: 5/5 Straight leg raise: 5/5 Hip abductors: 5/5 Hip passive range of motion is painless. Results Right knee radiographs reveal Tricompartmental osteoarthritis of the right knee. Joint effusion. Assessment & Plan 1. Right knee pain, medial. OA with mild improvement since last office visit. Night time pain. Symptoms suggest the possibility of an insufficiency fracture, contributing to the discomfort. Discussed MRI right knee to assess for insuff fracture, she would like to hold off on this for now. Diclofenac 75 mg twice daily will replace meloxicam. Tylenol can be taken at bedtime to alleviate nighttime pain. Exercises will be provided to start immediately. Advised to start physical therapy and considering aquatic therapy at this time. If the condition does not improve within 6 weeks, an MRI may be considered to assess the joint and bone. Offloading pressure on the knee is advised, avoiding treadmill use, and using a knee brace during activities like walking through airports. Discussed use of cane and or walker for ambulation, she is hesitant. The patient is advised to be diligent in protecting the leg and avoiding overexertion. Follow-up: 6 to 8 weeks. Orestes Gill PA-C documented in this encounter [facility] 03-07-2025 Instructions Orestes Gill PA-C - 03/07/2025 9:00 AM EDT Images from the original note were not included. Knee Arthritis: Care Instructions Overview Knee arthritis is a breakdown of the cartilage that cushions your knee joint. When the cartilage wears down, your bones rub against each other. This causes pain and stiffness. Knee arthritis tends to get worse with time. Treatment for knee arthritis involves reducing pain, making the leg muscles stronger, and staying at a healthy body weight. The treatment usually does not improve the health of the cartilage, but it can reduce pain and improve how well your knee works. You can take simple measures to protect your knee joints, ease your pain, and help you stay active. Follow-up care is a stock part of your treatment and safety. Be sure to make and go to all appointments, and call your doctor if you are having problems. It's also a good idea to know your test results and keep a list of the medicines you take. How can you care for yourself at home? Know that knee arthritis will cause more pain on some days than on others. Stay at a healthy weight. Lose weight if you are overweight. When you stand up, the pressure on your knees from every pound of body weight is multiplied four times. So if you lose 10 pounds, you will reduce the pressure on your knees by 40 pounds. Talk to your doctor or physical therapist about exercises that will help ease joint pain. Stretch to help prevent stiffness and to prevent injury before you exercise. You may enjoy gentle forms of yoga to help keep your knee joints and muscles flexible. Walk instead of jog. Ride a bike. This makes your thigh muscles stronger and takes pressure off your knee. Wear well-fitting and comfortable shoes. Exercise in chest-deep water. This can help you exercise longer with less pain. Avoid exercises that include squatting or kneeling. They can put a lot of strain on your knees. Talk to your doctor to make sure that the exercise you do is not making the arthritis worse. Do not sit for long periods of time. Try to walk once in a while to keep your knee from getting stiff. Ask your doctor or physical therapist whether shoe inserts may reduce your arthritis pain. If you can afford it, get new athletic shoes at least every year. This can help reduce the strain on your knees. Use a device to help you do everyday activities. A cane or walking stick can help you keep your balance when you walk. Hold the cane or walking stick in the hand opposite the painful knee. If you feel like you may fall when you walk, try using crutches or a front-wheeled walker. These can prevent falls that could cause more damage to your knee. A knee brace may help keep your knee stable and prevent pain. You also can use other things to make life easier, such as a higher toilet seat and handrails in the bathtub or shower. Take pain medicines exactly as directed. Do not wait until you are in severe pain. You will get better results if you take it sooner. If you are not taking a prescription pain medicine, take an [id number]-lim-mqpkkqb medicine such as acetaminophen (Tylenol), ibuprofen (Advil, Motrin), or naproxen (Aleve). Read and follow all instructions on the label. Do not take two or more pain medicines at the same time unless the doctor told you to. Many pain medicines have acetaminophen, which is Tylenol. Too much acetaminophen (Tylenol) can be harmful. Tell your doctor if you take a blood thinner, have diabetes, or have allergies to shellfish. Ask your doctor if you might benefit from a shot of steroid medicine into your knee. This may provide pain relief for several months. Many people take the supplements glucosamine and chondroitin for osteoarthritis. Some people feel they help, but the medical research does not show that they work. Talk to your doctor before you take these supplements. When should you call for help? Call your doctor now or seek immediate medical care if: You have sudden swelling, warmth, or pain in your knee. You have knee pain and a fever or rash. You have such bad pain that you cannot use your knee. Watch closely for changes in your health, and be sure to contact your doctor if you have any problems. Where can you learn more? Go to [email or web address]/patiented . Enter W187 in the search box to learn more about 'Knee Arthritis: Care Instructions.' Interested in seeing a video go to [email or web address] to see all video content. Current as of: December 07, 2023 Content Version: 14.6 [employer]. Care instructions adapted under license by your healthcare professional. If you have questions about a medical condition or this instruction, always ask your healthcare professional. [employer] disclaims any warranty or liability for your use of this information. documented in this encounter [facility] 01-23-2025 History of Present illness Narrative Associated Order(s): LARGE JOINT/BURSA INJECTION AND/OR ASPIRATION: R knee Post-Procedure Diagnose(s): Primary osteoarthritis of right knee; Right knee pain, unspecified chronicity Subjective Elisa Cruz is a 69 y.o. female who presents for Pain of the Right Knee (CC: she is a 69 y.o. female c/o R knee pain. Reports Swelling./Onset/LAURIE? Was moving a table when she tweaked her knee 3 weeks ago, then went on a trip where she was walking a lot./Hx: None/Pain located medial knee./Described as sharp stabbing./Reports mechanical sx./N/T: Denies/Agg by going down stairs, standing up after sitting. /Tx: naproxen, other pain relief medication, compression, salon pas patch ) History of Present Illness The patient presents to the walk-in clinic today with right knee pain. She reports pain and swelling in her right knee, which started about 3 weeks ago after she was moving a table and tweaked her knee. She then went on a trip and was doing a lot of walking. The pain is localized to the medial side of the knee and is described as sharp and stabbing. She also reports some mechanical symptoms but does not experience any numbness or tingling. The pain intensifies when going up and down stairs, standing up after sitting, and after prolonged sitting. She has been managing the pain with naproxen, compression, and Salonpas patches. She has been applying ice since yesterday, which she could not do for 2 weeks. She does not recall any snapping or popping sounds at the time of the injury. There is no history of surgeries on this knee, but she did have a severe patella incident with her left knee, which was managed with physical therapy and spinning. She has not had any issues with her left knee since then. She expresses fear of descending stairs due to the risk of her knee giving way, especially when caring for toddlers. She occasionally experiences popping, locking, or catching sensations in her knee, which seem to subside once she starts moving. She reports no calf pain. She has been taking meloxicam, which was not recently prescribed to her. She has no history of heart, lung, or kidney problems, or diabetes. She has osteoporosis and is making efforts to stay physically active to manage it. She purchased a treadmill this summer in preparation for her trip. 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 PAST SURGICAL HISTORY: She has undergone 4 C-sections. 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 Objective Physical Exam Examination of the contralateral left knee reveals: Range of motion from 0 to 130 degrees of flexion Full strength. There are no areas of tenderness. The knee is stable to beverly, posterior drawer, anterior drawer, varus and valgus stress at full extension and 30 degrees of flexion. Examination of the right knee reveals: No skin lesions, erythema, or warmth. Effusion: 1+ Range of Motion: 0-120 There is not a fixed flexion contracture There is not a fixed varus deformity Hyperextension Pain: Negative Hyperflexion Pain: Positive Shavon: Negative Medial Joint Line Tenderness: Positive Lateral Joint Line Tenderness: Negative Anterior Drawer: Negative Posterior Drawer: Negative Beverly: Negative Valgus Stress: Negative. Varus Stress: Negative Patellar Grind: Negative Strength: Knee extension: 5/5 Knee flexion: 5/5 Straight leg raise: 5/5 Hip abductors: 5/5 Hip passive range of motion is painless. Results Right knee radiographs reveal Tricompartmental osteoarthritis of the right knee. Joint effusion. Assessment & Plan 1. Right knee pain, likely OA flare The symptoms and x-ray findings suggest an arthritic flare-up in the right knee, particularly in the medial compartment. There is no evidence of acute tears or injuries that would necessitate immediate treatment or further imaging such as an MRI. The patient has been using naproxen, compression, and Salonpas patches for relief. A prescription for meloxicam 15 mg once daily with food for a month will be provided. A steroid injection will be administered today to help reduce inflammation and pain. Physical therapy will be initiated once the pain is better controlled. Maintaining mobility through activities such as using a treadmill or elliptical machine is recommended. The importance of staying active to counter osteoporosis and prevent further joint stiffness was emphasized. The patient was reassured that the injection should not be too painful and was encouraged to start physical therapy to strengthen surrounding muscles. Follow-up: The patient will follow up in 6 to 8 weeks. LARGE JOINT/BURSA INJECTION AND/OR ASPIRATION: R knee Date/Time: 01/23/2025 12:20 PM Performed by: Orestes Gill PA-C Authorized by: Orestes Gill PA-C Supporting Documentation Indications: pain, joint swelling and osteoarthritis Procedure Details: Location: knee - R knee Local Anesthetic: ethyl chloride (cold spray) Needle size: 21 G Approach: anterolateral Medication Verification: I have personally verified and performed the final check of the medication(s) used in this procedure prior to administration. The following items were included during the verification process for medication(s) administered: drug name, strength, volume, expiration, physical integrity and appearance of the medication(s). Medications administered: 4 mL ROPivacaine 0.2%; 40 mg methylPREDNISolone acetate 40 MG/ML Patient tolerance: patient tolerated the procedure well with no immediate complications Consent: Consent was obtained prior to the procedure after discussion of the risks, benefits and alternatives, and expected outcomes were discussed with the patient. The possibilities of reaction to medication, bleeding, infection, the need for additional procedures, failure to diagnosis a condition, and creating a complication requiring operation were discussed with the patient. The patient concurred with the proposed plan, giving consent. Timeout: Immediately prior to procedure a time out was called to verify the correct patient, procedure, medication(s) and site/laterality as required. The patient was prepped with alcohol and Chloraprep. Orestes Gill PA-C documented in this encounter [facility] 05-19-2024 Physician Emergency department Note ED PROVIDER NOTE Elisa Cruz 68 y.o. femalewith a past medical history of Past Medical History: Diagnosis Date Acute deep vein thrombosis (DVT) of lower extremity 05/08/2018 Acute pulmonary embolism without acute cor pulmonale 05/08/2018 Arthritis Arthritic - pronounced ladt 10 years Deep venous thrombosis (DVT) of left peroneal vein 05/04/2018 treated with aspirin GERD (gastroesophageal reflux disease) Stressful time 20 yrs ago. Then ok. Recently possibly sxs or gerd History of narrow angle glaucoma 12/2022 Narrow angle glaucoma. Laser treated The patient presents with knee pain. Patient states that she has pain on the posterior lateral aspect of her left knee. Patient states that the pain started approximately 2 days ago, it has worsened over the past 24 hours. Patient does state that she had a fall 1 week ago where she landed on her right knee. She does not remember any strain of her left knee. She does state that she has a history of DVT/PE. She states this was provoked, postoperative. She denies any redness. She does state that she has noted some swelling around the knee itself. She denies any numbness or paresthesias, denies any coldness to the limb. review of system: All systems were reviewed and are negative except As noted here or elsewhere in the chart Cardiovascular: Negative for CP Respiratory: Negative for SOB, or cough Consitutional: Negative for fever, chills, or activity change HEENT: Negative for drooling Neuro: Negative for h/a Skin: Negative for color change Musculoskeletal: Positive for joint pain and edema. Allergies Allergen Reactions Morphine Itching Short Ragweed Pollen Ext Itchy Throat and Sneezing Famotidine Rash Worsened rosacea No current facility-administered medications for this encounter. Current Outpatient Medications: alendronate 70 MG tablet, TAKE 1 TABLET BY MOUTH ONE TIME PER WEEK, Disp: 12 tablet, Rfl: 4 Gabapentin 300 MG capsule, Take 1 capsule by mouth at bedtime. (Patient not taking: Reported on 01/30/2024), Disp: 30 capsule, Rfl: 1 metroNIDAZOLE 0.75 % Gel, Apply to face twice daily as needed for Rosacea, Disp: 45 g, Rfl: [address] omepraz[address] capsule, Take 1 capsule by mouth daily., Disp: 90 capsule, Rfl: 1 Sodium Fluoride 5000 PPM 1.1 % Paste paste, BRUSH ONCE DAILY, Disp: , Rfl: traZODone 50 MG tablet, Take 1 tablet by mouth daily., Disp: 90 tablet, Rfl: 3 Past Surgical History: Procedure Laterality Date IRIDECTOMY 01/2023 Treatment of NAG ROTATOR CUFF REPAIR Left 2018 CORE BIOPSY OF THE BREAST Bilateral 1994 SECTION x4 Social History Socioeconomic History Marital status: Spouse name: Not on file Number of children: Not on file Years of education: Not on file Highest education level: Not on file Occupational History Not on file Tobacco Use Smoking status: Never Passive exposure: Never Smokeless tobacco: Never Tobacco comments: Father smoked cigerettes in car when I was young Substance and Sexual Activity Alcohol use: Yes Alcohol/week: 3.0 standard drinks of alcohol Types: 3 Glasses of wine per week Comment: 2-3 glasses wine per week Drug use: Never Sexual activity: Yes Partners: Male Comment: Mildly sexual. 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 Overall Financial Resource Strain (CARDIA) Difficulty of Paying Living Expenses: Not hard at all Food Insecurity: No Food Insecurity (12/02/2021) Received from [facility] Hunger Vital Sign Worried About Running Out of Food in the Last Year: Never true Ran Out of Food in the Last Year: Never true Transportation Needs: Unmet Transportation Needs (12/02/2021) Received from [facility] PRAPARE - Transportation Lack of Transportation (Medical): Yes Lack of Transportation (Non-Medical): Yes Physical Activity: Insufficiently Active (12/02/2021) Received from [facility] Exercise Vital Sign Days of Exercise per Week: 2 days Minutes of Exercise per Session: 30 min Stress: No Stress Concern Present (12/02/2021) Received from [facility] [place] of Occupational Health - Occupational Stress Questionnaire Feeling of Stress : Only a little Social Connections: Moderately Integrated (12/02/2021) Received from [facility] Social Connection and Isolation Panel [NHANES] Frequency of Communication with Friends and Family: More than three times a week Frequency of Social Gatherings with Friends and Family: Three times a week Attends Moravian Services: Never Active Member of Clubs or Organizations: No Attends Club or Organization Meetings: 1 to 4 times per year Marital Status: Living with partner Intimate Partner Violence: Not on file Housing Stability: Low Risk (12/02/2021) Re[facility] Housing Stability Vital Sign Unable to Pay for Housing in the Last Year: No Number of Places Lived in the Last Year: 2 Unstable Housing in the Last Year: No Vitals: 05/19/24 1020 BP: 145/67 Pulse: 85 Resp: 16 Temp: 98 F (36.7 C) SpO2: 96% physical exam: constitutional: The vital signs and nursing note were reviewed, the patient is comfortable, alert and oriented x3 Head: Atraumatic and normocephalic. Eyes: No discharge from the eyes the sclerae are normal. PERRL. Neck: The neck demonstrates normal range of motion no JVD is present no meningeals signs are present Respiratory/chest: breath sounds are CTA bilaterally, equal and symmetrical chest rise, no respiratory distress is noted Cardiovascular: Heart shows a regular rate and rhythm, no murmurs, no rubs, no gallops. +2 bilateral pulses with brisk cap refill. Skin: The skin exam shows no evidence of rashes or erythema. No warmth or open wounds Extremity exam: The left knee has obvious evidence of swelling. Articular there does appear to be effusion present. Ligamentous testing of the MCL LCL ACL and PCL are all intact. Distal neurovascular testing are all intact. No tib/fib or ankle pain, no femur or hip pain. Full extension against gravity with testing of the patellar tendon. Anterior drawer negative, no crepitus. Flexes to >90 degrees. Neuro: AAOx3, ambulates with slight limp, no focal sensory or motor deficits. GCS 15 Psych: The patient is calm, and appropriate for the situation. XR KNEE LEFT 3 VIEWS Final Result IMPRESSION: No acute osseous abnormality I personally viewed and interpreted these images and I have reviewed and approved this report. [facility] DUPLEX VENOUS EXTREMITY LOWER LEFT MDM: Patient with tenderness to palpation over the left posterolateral aspect of the knee. She does have a history of DVT. A Doppler ultrasound was completed which was negative for DVT. No s/s of infectious process, compartment syndrome, or neurovascular compromise. An x-ray of the knee was obtained which does not show any evidence of any acute osseous abnormality. Given that patient did have a fall 1 week ago, likely this pain relates to a knee sprain. Patient educated on rice therapy. We will place a referral for Sports Medicine for follow-up. Patient will be discharged with a prescription for Voltaren gel. Patient educated to return for any acute worsening of symptoms. IMPRESSION: Left knee sprain PLAN: Pertinent labs and images reviewed (see chart for details) Rx:Voltaren gel F/u with Sports medicine Plan discussed with patient. Verbalized understanding. Instructed on emergent reasons to return and verbalized understanding. This was an independent nurse practitioner visit. [facility] 05/19/24 1208 [facility] 05-19-2024 Emergency department Note ED PROVIDER NOTE Elisa Cruz 68 y.o. femalewith a past medical history of Past Medical History: Diagnosis Date Acute deep vein thrombosis (DVT) of lower extremity 05/08/2018 Acute pulmonary embolism without acute cor pulmonale 05/08/2018 Arthritis Arthritic - pronounced ladt 10 years Deep venous thrombosis (DVT) of left peroneal vein 05/04/2018 treated with aspirin GERD (gastroesophageal reflux disease) Stressful time 20 yrs ago. Then ok. Recently possibly sxs or gerd History of narrow angle glaucoma 12/2022 Narrow angle glaucoma. Laser treated The patient presents with knee pain. Patient states that she has pain on the posterior lateral aspect of her left knee. Patient states that the pain started approximately 2 days ago, it has worsened over the past 24 hours. Patient does state that she had a fall 1 week ago where she landed on her right knee. She does not remember any strain of her left knee. She does state that she has a history of DVT/PE. She states this was provoked, postoperative. She denies any redness. She does state that she has noted some swelling around the knee itself. She denies any numbness or paresthesias, denies any coldness to the limb. review of system: All systems were reviewed and are negative except As noted here or elsewhere in the chart Cardiovascular: Negative for CP Respiratory: Negative for SOB, or cough Consitutional: Negative for fever, chills, or activity change HEENT: Negative for drooling Neuro: Negative for h/a Skin: Negative for color change Musculoskeletal: Positive for joint pain and edema. Allergies Allergen Reactions Morphine Itching Short Ragweed Pollen Ext Itchy Throat and Sneezing Famotidine Rash Worsened rosacea No current facility-administered medications for this encounter. Current Outpatient Medications: alendronate 70 MG tablet, TAKE 1 TABLET BY MOUTH ONE TIME PER WEEK, Disp: 12 tablet, Rfl: 4 Gabapentin 300 MG capsule, Take 1 capsule by mouth at bedtime. (Patient not taking: Reported on 01/30/2024), Disp: 30 capsule, Rfl: 1 metroNIDAZOLE 0.75 % Gel, Apply to face twice daily as needed for Rosacea, Disp: 45 g, Rfl: 0 omeprazole [address] capsule, Take 1 capsule by mouth daily., Disp: 90 capsule, Rfl: 1 Sodium Fluoride 5000 PPM 1.1 % Paste paste, BRUSH ONCE DAILY, Disp: , Rfl: traZODone 50 MG tablet, Take 1 tablet by mouth daily., Disp: 90 tablet, Rfl: 3 Past Surgical History: Procedure Laterality Date IRIDECTOMY 01/2023 Treatment of NAG ROTATOR CUFF REPAIR Left 2018 CORE BIOPSY OF THE BREAST Bilateral 1993 SECTION x4 Social History Socioeconomic History Marital status: Spouse name: Not on file Number of children: Not on file Years of education: Not on file Highest education level: Not on file Occupational History Not on file Tobacco Use Smoking status: Never Passive exposure: Never Smokeless tobacco: Never Tobacco comments: Father smoked cigerettes in car when I was young Substance and Sexual Activity Alcohol use: Yes Alcohol/week: 3.0 standard drinks of alcohol Types: 3 Glasses of wine per week Comment: 2-3 glasses wine per week Drug use: Never Sexual activity: Yes Partners: Male Comment: Mildly sexual. 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 Overall Financial Resource Strain (CARDIA) Difficulty of Paying Living Expenses: Not hard at all Food Insecurity: No Food Insecurity (12/02/2021) Received from [facility] Hunger Vital Sign Worried About Running Out of Food in the Last Year: Never true Ran Out of Food in the Last Year: Never true Transportation Needs: Unmet Transportation Needs (12/02/2021) Received from [facility] PRAPARE - Transportation Lack of Transportation (Medical): Yes Lack of Transportation (Non-Medical): Yes Physical Activity: Insufficiently Active (12/02/2021) Received from [facility] Exercise Vital Sign Days of Exercise per Week: 2 days Minutes of Exercise per Session: 30 min Stress: No Stress Concern Present (12/02/2021) Received from [facility] [place] of [employer] Health - Occupational Stress Questionnaire Feeling of Stress : Only a little Social Connections: Moderately Integrated (12/02/2021) Received from [facility] Social Connection and Isolation Panel [NHANES] Frequency of Communication with Friends and Family: More than three times a week Frequency of Social Gatherings with Friends and Family: Three times a week Attends Moravian Services: Never Active Member of Clubs or Organizations: No Attends Club or Organization Meetings: 1 to 4 times per year Marital Status: Living with partner Intimate Partner Violence: Not on file Housing Stability: Low Risk (12/02/2021) Received from [facility] Housing Stability Vital Sign Unable to Pay for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 Insecurity: No Food Insecurity (12/02/2021) Received from [facility] Hunger Vital Sign Worried About Running Out of Food in the Last Year: Never true Ran Out of Food in the Last Year: Never true Transportation Needs: Unmet Transportation Needs (12/02/2021) Received from [facility] PRAPARE - Transportation Lack of Transportation (Medical): Yes Lack of Transportation (Non-Medical): Yes Physical Activity: Insufficiently Active (12/02/2021) Received from [facility] Exercise Vital Sign Days of Exercise per Week: 2 days Minutes of Exercise per Session: 30 min Stress: No Stress Concern Present (12/02/2021) Received from [facility] [place] [employer] Occupational Health - Occupational Stress Questionnaire Feeling of Stress : Only a little Social Connections: Moderately Integrated (12/02/2021) Received from [facility] Social Connection and Isolation Panel [NHANES] Frequency of Communication with Friends and Family: More than three times a week Frequency of Social Gatherings with Friends and Family: Three times a week Attends Moravian Services: Never Active Member of Clubs or Organizations: No Attends Club or Organization Meetings: 1 to 4 times per year Marital Status: Living with partner Housing Stability: Low Risk (12/02/2021) Received from [facility] Housing Stability Vital Sign Unable to Pay for Housing in the Last Year: No Number of Places Lived in the Last Year: 2 Unstable Housing in the Last Year: No Outpatient Medications Prior to Visit Medication Sig Dispense Refill alendronate 70 MG tablet Take 1 tablet by mouth every 7 days. 12 tablet 4 Azelaic Acid 15 % Gel metroNIDAZOLE 0.75 % Gel APPLY A THIN LAYER TO THE FULL FACE TWICE A DAY Sodium Fluoride 5000 PPM 1.1 % Paste paste BRUSH ONCE DAILY traZODone 50 MG tablet Take 0.5 tablets by mouth daily. TRAZODONE & DIET MANAGE PROD PO No facility-administered medications prior to visit. is allergic to morphine and short ragweed pollen ext. Exam: BP (P) 134/78 (BP Location: Right arm, BP Position: Sitting) Pulse (P) 70 Temp (P) 98 F (36.7 C) (Oral) Resp (P) 16 Ht (P) 1.537 m (5' 0.5) Wt (P) 64.3 kg (141 lb 12.8 oz) SpO2 (P) 97% BMI (P) 27.24 kg/m Smoking Status Never Body mass index is 27.24 kg/m (pended). Physical Exam Vitals reviewed. Constitutional: General: She is not in acute distress. Appearance: Normal appearance. HENT: Head: Normocephalic. Cardiovascular: Rate and Rhythm: Normal rate and regular rhythm. Heart sounds: Normal heart sounds. No murmur heard. No friction rub. No gallop. Pulmonary: Effort: Pulmonary effort is normal. No respiratory distress. Breath sounds: Normal breath sounds. No wheezing. Abdominal: Tenderness: There is no right CVA tenderness or left CVA tenderness. Musculoskeletal: Right lower leg: No edema. Left lower leg: No edema. Neurological: Mental Status: She is alert and oriented to person, place, and time. Mental status is at baseline. Psychiatric: Mood and Affect: Mood normal. Behavior: Behavior normal. Thought Content: Thought content normal. Judgment: Judgment normal. Assessment / Plan: ICD-10-CM 1. Annual physical exam Z00.00 Advice and screenings as above 2. Establishing care with new doctor, encounter for Z76.89 Chart reviewed and updated 3. Screening, iron deficiency anemia Z13.0 CBC, EDIF, PLATELET 4. Encounter for vitamin deficiency screening Z13.21 VITAMIN D (25-HYDROXY,TOTAL) 5. Screening for thyroid disorder Z13.29 TSH W/FT4 REFLEX 6. Screening for cardiovascular condition Z13.6 LIPID PANEL WITH REFLEX TO MEASURED LDL 7. Medication management Z79.899 COMPREHENSIVE METABOLIC PANEL 8. Screening for diabetes mellitus Z13.1 HEMOGLOBIN A1C 9. Age-related osteoporosis without current pathological fracture M81.0 TSH W/FT4 REFLEX COMPREHENSIVE METABOLIC PANEL Continue alendronate 70 mg weekly. Tolerating with minimal acid reflux. If GI symptoms worsen, transitioned to Reclast infusion is appropriate. 10. Need for hepatitis C screening test Z11.59 HEPATITIS C ANTIBODY 11. Incidental lung nodule, > 3mm and < 8mm R91.1 Follow-up scan was benign and she is low risk. Now greater than 3 years since this was identified and she is asymptomatic, further follow-up not recommended 12. Hematuria, unspecified type R31.9 URINALYSIS 13. Vitamin D deficiency E55.9 VITAMIN D (25-HYDROXY,TOTAL) 14. Intermittent right upper quadrant abdominal pain R10.11 CBC, EDIF, PLATELET TSH W/FT4 REFLEX COMPREHENSIVE METABOLIC PANEL HEMOGLOBIN A1C 15. Generalized anxiety disorder F41.1 TSH W/FT4 REFLEX Managing well without medication presently. Continue to monitor 16. Need for prophylactic vaccination against Streptococcus pneumoniae (pneumococcus) Z23 Pneumococcal 20-Esthela Conj Vacc (PREVNAR-20) injection 0.5 mL 17. History of melanoma Z85.820 AMB REFERRAL TO DERMATOLOGY for twice annual screening 18. Screening for malignant neoplasm of colon Z12.11 Colonoscopy arranged with outside provider 19. Encounter for screening mammogram for malignant neoplasm of breast Z12.31 Mammogram arranged with outside provider 20. Melanoma in situ of lower extremity, including hip, unspecified laterality D03.70 AMB REFERRAL TO DERMATOLOGY 21. Primary osteoarthritis of both hands M19.041 Monitor Tylenol 1000 mg every 6 hours as needed for pain reduction Warm soaks of the hands as needed M19.042 Neck [id number]. Trial gabapentin 300 mg q.h.s. to help with sleep. She denies need for medication during the daytime. May use ibuprofen or naproxen sparingly for daytime stiffness as needed. Otherwise prefer acetaminophen 1000 mg every 6 hours as needed. I spent 59 minutes on this date in total care for this patient. This includes chart review prior to visit, time in the room with the patient, and coordination and completion of care planning after the visit. Omar Saab MD [facility] Patient [facility] to see Dr. Saab to address the following concern(s): Establish care/Annual Contain rapid aging- overall wellness Pe's after rotator cuff surgery 5 years ago Left sided neck pain- has seen ortho: did injections with minimal improvement. Gabapentin? Sleep and neck pain? Recently noticed bilateral tingling in hands Melanoma in C2 removed from knee- Follows with Derm in [place] would like referral in [place] Alendronate 70 mg weekly- plan and follow up and supplement conversation Medication refills Vaccines reviewed and updated Vital signs and weight obtained. Patient s allergies and current medication list reviewed and changes noted. [facility] Saab informed patient is ready to be seen. Brief summary of chief complaint(s) communicated to physician. Pneumococcal Conjugate Vaccine (Prevnar 20) was ordered and given in the right deltoid. Patient tolerated well. [facility] VIS dated 09/17/2022 provided and reviewed prior to injection. Lab orders released. Blood specimen drawn from left anticubital space without difficulties. Patient tolerated well. Patient encouraged to call PRN. [facility] + Plan note Associated Problem(s): Esophageal reflux As of 07/15/2023, intermittent throat discomfort consistent with GERD. Patient reports taking ibuprofen for headaches. Patient reports increased over the past month after her partner had a stroke. Patient reports experiencing previously in the distant past the results after course of medication. Assessment & Plan: Patient with symptoms consistent with GERD. Patient wants to try switching medication she was using for headache pain before initiating any additional medication. - counseling and education provided on occurred in strategies for reducing symptoms - risks and benefits of PPIs and famotidine discussed - switch ibuprofen to tylenol for headaches [facility] 07-24-2023 Evaluation + Plan note Associated Problem(s): Intermittent right upper quadrant abdominal pain As of 07/15/2023, intermittent upper right quadrant pain that is sharp in nature. No clear association with food. Sometimes worse with bending over. On physical exam on 07/15/2023, patient with some mild tenderness in upper right. No guarding, distention, or rebound tenderness. Assessment & Plan: Given patient's presentation, it is possible that she is experiencing symptomatic gallstone pain. Other etiologies of her pain are possible. Given mild intermittent in nature this pain no further workup this time. - patient counseled on signs and symptoms requiring further evaluation. - continue to monitor symptoms. [facility] 07-24-2023 Evaluation + Plan note Associated Problem(s): Age related osteoporosis As of 07/15/2023, started alendronate a month ago. Having some throat discomfort. Follows with Endocrinology. Assessment & Plan: Patient with throat discomfort sounds consistent with GERD after starting alendronate. - patient counseled to stop taking alendronate for 4 weeks and then try reinitiating [facility] 07-24-2023 Miscellaneous Notes Associated Problem(s): Esophageal reflux As of 07/15/2023, intermittent throat discomfort consistent with GERD. Patient reports taking ibuprofen for headaches. Patient reports increased over the past month after her partner had a stroke. Patient reports experiencing previously in the distant past the results after course of medication. Assessment & Plan: Patient with symptoms consistent with GERD. Patient wants to try switching medication she was using for headache pain before initiating any additional medication. - counseling and education provided on occurred in strategies for reducing symptoms - risks and benefits of PPIs and famotidine discussed - switch ibuprofen to tylenol for headaches Associated Problem(s): Intermittent right upper quadrant abdominal pain As of 07/15/2023, intermittent upper right quadrant pain that is sharp in nature. No clear association with food. Sometimes worse with bending over. On physical exam on 07/15/2023, patient with some mild tenderness in upper right. No guarding, distention, or rebound tenderness. Assessment & Plan: Given patient's presentation, it is possible that she is experiencing symptomatic gallstone pain. Other etiologies of her pain are possible. Given mild intermittent in nature this pain no further workup this time. - patient counseled on signs and symptoms requiring further evaluation. - continue to monitor symptoms. Associated Problem(s): Age related osteoporosis As of 07/15/2023, started alendronate a month ago. Having some throat discomfort. Follows with Endocrinology. Assessment & Plan: Patient with throat discomfort sounds consistent with GERD after starting alendronate. - patient counseled to stop taking alendronate for 4 weeks and then try reinitiating documented in this encounter [facility] 07-15-2023 History of Present illness Narrative Family Medicine Outpatient Visit Chief Complaint Flank pain History of Present Illness Elisa is a 68 y.o. female with a PMHx of osteoporosis, GERD, DVT, PE. Health Concerns, Assessments, and Plans ICD-10-CM 1. Age-related osteoporosis without current pathological fracture M81.0 2. Gastroesophageal reflux disease without esophagitis K21.9 3. Intermittent right upper quadrant abdominal pain R10.11 Age related osteoporosis As of 07/15/2023, started alendronate a month ago. Having some throat discomfort. Follows with Endocrinology. Assessment & Plan: Patient with throat discomfort sounds consistent with GERD after starting alendronate. - patient counseled to stop taking alendronate for 4 weeks and then try reinitiating Intermittent right upper quadrant abdominal pain As of 07/15/2023, intermittent upper right quadrant pain that is sharp in nature. On physical exam on 07/15/2023, patient with some mild tenderness in upper right. No guarding, distention, or rebound tenderness. Assessment & Plan: Given patient's presentation, it is possible that she is experiencing symptomatic gallstone pain. Other etiologies of her pain are possible. Given mild intermittent in nature this pain no further workup this time. - patient counseled on signs and symptoms requiring further evaluation. - continue to monitor symptoms. Esophageal reflux As of 07/15/2023, intermittent throat discomfort consistent with GERD. Patient reports taking ibuprofen for headaches. Patient reports increased over the past month after her partner had a stroke. Patient reports experiencing previously in the distant past the results after course of medication. Assessment & Plan: Patient with symptoms consistent with GERD. Patient wants to try switching medication she was using for headache pain before initiating any additional medication. - counseling and education provided on occurred in strategies for reducing symptoms - risks and benefits of PPIs and famotidine discussed - switch ibuprofen to tylenol for headaches Follow up: Return in about 2 months (around 09/14/2023) for Right upper quadrant discomfort. Alfredo Butterfield MD, PhD, MPH, CSCS, [facility], PGY-2 Additional Objective Findings Vitals: BP 116/76 (BP Location: Right arm, BP Position: Sitting) Pulse 76 Temp 97 F (36.1 C) (Temporal) Resp 16 Wt 63.9 kg (140 lb 12.8 oz) BMI 28.44 kg/m Smoking Status Never Body mass index is 28.44 kg/m . Physical Exam Constitutional: General: She is not in acute distress. Appearance: She is not ill-appearing, toxic-appearing or diaphoretic. Pulmonary: Effort: No respiratory distress. Abdominal: General: Abdomen is flat. There is no distension. Palpations: Abdomen is soft. There is no mass. Tenderness: There is abdominal tenderness. There is no guarding or rebound. Skin: General: Skin is warm and dry. Neurological: Mental Status: She is alert. Psychiatric: Mood and Affect: Mood normal. Behavior: Behavior normal. Thought Content: Thought content normal. Judgment: Judgment normal. Additional Pertinent Documentation Past medical, surgical, family, list, medications, allergies reviewed in IHIS: Yes Patient discussed with Dr. Miller at time of visit. I agree with the assessment and management plan as detailed in his/her progress note. Patient with mild intermittent RUQ pain. No clear association with food, sometimes with activity - observe. Mild gerd about one month after starting bisphosphonate. Will pause medication for one month and re-challenge in one month - if recurs advise infusion for osteoporosis. documented in this encounter [facility] 02-22-2023 History of Present illness Narrative [facility] HISTORY OF PRESENT ILLNESS Primary care provider: Dr. Becki Garcia History of Present Illness: Elisa Cruz is a 67 y.o. female with a past medical history significant for PE after surgery, DVT, Left rotator cuff surgery, melanoma in situ, anxiety, who presents for follow up of neck pain. Had TPI done 01/04/23 with minimal improvement. In the interim did acupuncture with massage in [place] and felt this was very helpful. Feels axial neck with left radiation to trapezius pain is overall controlled today, about 2/10. Does get worse with increased activity Treatments tried: Advil Acupuncture- very helpful Injections/Surgeries: TPI 01/04/23- minimal improvement Review of Systems: Remainder of ROS was negative or as above and below. (positive if in bold) General/Constitutional: no fevers, night sweats, or unintentional wt loss GI: No new diarrhea or constipation : No new dysuria or incontinence MSK: per HPI Neuro: per HPI Surgical History: Prior Back Surgery: No Social History: Social History Tobacco Use Smoking status: Never Passive exposure: Never Smokeless tobacco: Never PHYSICAL EXAMINATION Pulse 64 Temp 96.7 F (35.9 C) Ht 1.499 m (4' 11) Wt 61.2 kg (135 lb) SpO2 98% BMI 27.27 kg/m Smoking Status Never Body mass index is 27.27 kg/m . GENERAL: NAD, good eye contact, well appearing, responds appropriately. RESP: No dyspnea PSYCH: Affect appears normal, mood congruent. Cervical ROM normal. + Facet loading L>R, + tenderness along left trapezius. 5/5 strength BUE with intact sensation to LT throughout. +2 b/l biceps reflex, neg negrete b/l. Labs/Imaging Reviewed: MRI spine 12/28/22 Multilevel degenerative changes in the cervical spine. Mild spinal stenosis at C3-C4, C5-C6 and moderate spinal stenosis at C4-C5 level. Lab Results Component Value Date SODIUM 138 02/18/2023 POTASSIUM 4.1 02/18/2023 CHLORIDE 103 02/18/2023 CO2 26 02/18/2023 BUN 22 02/18/2023 CREATSERUM 0.81 02/18/2023 GLUCOSE 96 06/22/2022 Lab Results Component Value Date WBC 7.16 06/22/2022 HGB 14.3 06/22/2022 HCT 44.5 (H) 06/22/2022 PLATELET 236 06/22/2022 MCV 94.9 06/22/2022 No results found for: SEDRATE No results found for: CRP ASSESSMENT AND PLAN Elisa Cruz is a 67 y.o. female with a past medical history significant for PE after surgery, DVT, Left rotator cuff surgery, melanoma in situ, anxiety, who presents for follow up of neck pain. Largely axial neck pain not helped by TPI, but significantly improved with acupuncture she had done in [place]. She is interested in continuing acupuncture here. ICD-10-CM 1. Neck pain M54.2 [facility]B [facility] 2. 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 AMB [facility] PLAN: ---> Referral for acupuncture made ---> If not improved, we had discussed consideration of MBB +/- RFA for suspected facetogenic component of pain Follow up: CLARE Argueta MD Actuary Manager-Professor, Clinical Department of Physical Medicine and Rehabilitation documented in this encounter [facility] 02-22-2023 Instructions Sukh Argueta MD - 02/22/2023 4:00 PM [facility]T [facility] in this [facility] 02-18-2023 History of Present illness Narrative [facility] Endocrinology, Diabetes & [place] [address] CHIEF COMPLAINT: Chief Complaint Patient presents with Osteoporosis New Patient HISTORY OF PRESENT ILLNESS: Elisa Cruz is a 67 y.o. female who has no past medical history on file.. she presents today for evaluation and management of osteoporosis. Elisa Cruz was referred by Becki Garcia MD Elisa Cruz presents today by herself Elisa Cruz was diagnosed with osteoporosis based on 3DXA showing lowest T-score of -2.5 in L1-L4 spine. she has neve suffered fragility fracture. Menopause: 55. Menarche was at age 13, she had regular periods lasting 5-7 days. She has been 4 times in her life HRT: None Fractures: none reported. Height loss: Current height 4'11.84, reports a tallest achieved height of 5'2 Kidney stones: none Diet issues: none, she does eat dairy products including yogurt, some milkd and cheese, also eats green leafy vegetables Supplements/meds: She does take a calcium supplement (she thinks 600mg daily). She does take vitamin D3 2000 units daily Family history of bone disease/hip fracture: None Smoking: Never EtOH: Socially GERD: None Dental issues: She has previously had a dental implant. She did see a dentist yesterday, however she anticipates possible needing dental extractions in the future. A good friend of hers had osteonecrosis of the jaw in July so she is hesitant about using medications that increase the risk of this. Exercise: Walking 7 days a week for 1 hour. She takes her dog for a walk. Falls/fall risk: No There is no history of prolonged course of immobilization, episode of hyperthyroidism, nephrolithiasis, hypercalcemia, diabetes mellitus, renal or hepatic failure, malabsorption, eating disorder, lactose intolerance, organ transplantation, bariatric gastric surgery, rheumatoid arthritis. No history of steroid therapy, anticonvulsants, heparin, thyroid hormone, aromatase inhibitor or anti-androgen therapy or lithium therapy. REVIEW OF SYSTEMS: Review of Systems Constitutional: Negative for activity change, appetite change, chills, diaphoresis, fatigue, fever and unexpected weight change. HENT: Negative for dental problem, hearing loss and trouble swallowing. Eyes: Negative for pain and visual disturbance. Respiratory: Negative for cough, shortness of breath and wheezing. Cardiovascular: Negative for chest pain, palpitations and leg swelling. Gastrointestinal: Negative for abdominal pain, constipation, diarrhea, nausea and vomiting. Endocrine: Negative for cold intolerance, heat intolerance, polydipsia and polyuria. Genitourinary: Negative for difficulty urinating, dysuria, flank pain, frequency and hematuria. Musculoskeletal: Negative for arthralgias, back pain, gait problem, myalgias and neck pain. Skin: Negative for rash and wound. Neurological: Negative for dizziness, tremors, syncope, weakness, light-headedness, numbness and headaches. Hematological: Negative for adenopathy. Does not bruise/bleed easily. Psychiatric/Behavioral: Negative for dysphoric mood. The patient is not nervous/anxious. PAST MEDICAL HISTORY: No past medical history on file. No past surgical history on file. No family history on file. Social History Tobacco Use Smoking status: Never Passive exposure: Never Smokeless tobacco: Never PHYSICAL EXAMINATION: Vitals: 02/18/23 1009 BP: 118/72 Pulse: 77 Wt Readings from Last 6 Encounters: 02/18/23 63.2 kg (139 lb 6.4 oz) 01/04/23 61.7 kg (136 lb) 12/10/22 61.7 kg (136 lb) 07/27/22 61.8 kg (136 lb 3.2 oz) 07/23/22 60.8 kg (134 lb) 06/22/22 60.8 kg (134 lb) General: Pleasant, in no acute distress. Appears stated age Head: Normocephalic, atraumatic Eyes: PERRLA, EOMI, sclera white ENT: MMM, OP clear. Good dentition Neck: Soft, supple, no palpable thyromegaly or thyroid nodules CV: RRR, no murmurs, rubs, or gallops. No lower extremity edema Resp: CTAB, no rhonchi, wheezes, or rales GI: Soft, NT, ND, no organomegaly. No epigastric tenderness MSK: Normal Gait. Mildly increased thoracic kyphosis. Mild scoliotic curvature of the spine. No anterior tibial tenderness. No muscle wasting noted Neuro: Awake, alert, no focal neurologic deficits. DTRs grossly intact Skin: Warm, dry, intact, no rashes or lesions Psych: Normal mood and affect for situation LABORATORY RESULTS: Lab Results Component Value Date PTH 91.8 (H) 02/18/2023 CALCIUM 10.1 02/18/2023 PHOSPHORUS 3.3 02/18/2023 Lab Results Component Value Date SODIUM 138 02/18/2023 POTASSIUM 4.1 02/18/2023 CHLORIDE 103 02/18/2023 CO2 26 02/18/2023 BUN 22 02/18/2023 CREATSERUM 0.81 02/18/2023 Lab Results Component Value Date WBC 7.16 06/22/2022 HGB 14.3 06/22/2022 HCT 44.5 (H) 06/22/2022 PLATELET 236 06/22/2022 MCV 94.9 06/22/2022 Lab Results Component Value Date ALT 16 06/22/2022 AST 17 06/22/2022 ALKPHOS 72 06/22/2022 BILITOTAL 0.6 06/22/2022 No results found for: TSH, JHG74YOD, LLP73YFE, TSHBASELINE, TSHULTRASEN, T3FREE, K1KUDTQPQ, D0MDOGM, C1FENYVL, T4FREE, TPOAB, Y3TYNONZ Last 25-Vit D 28.5 in 2009 IMAGES: 10/11/2022 DXA [facility] CURRENT BONE MINERAL DENSITY (BMD) Region: g/cm2 T-Score Lumbar 1-4 Spine: 0.876 -2.5 Left Femoral Neck: 0.869 -1.2 Left Total Hip: 0.898 -0.9 Right Femoral Neck: 0.832 -1.5 Right Total Hip: 0.825 -1.4 ASSESSMENT AND PLAN: Elisa Cruz is a 67 y.o. female who presents today for evaluation and management of osteoporosis. Post-menopausal osteoporosis Ms. Cruz has post-menopausal osteoporosis as evidenced by her lowest T-score of -2.5 in L1-L4 spine on 10/11/2022 DXA. She has never suffered prior fragility fracture. Her risk factors for osteoporosis include age >65, post-menopausal status. Based on her densitometric osteoporosis she qualifies for treatment of osteoporosis. We discussed today the rationale for use of bisphosphonate therapy for fracture risk reduction. We discussed the potential side effects oral bisphosphonates including GI intolerance, and complications of group home use of ONJ and AFF. Her primary concern is in regards to ONJ as she had a friend who recently suffered from this. She does have an implant and has some upcoming dental work next month. I discussed with her that while the risk is low of getting ONJ early on during treatment with bisphosphonates, it would be reasonable to wait until a month after her dental work to start therapy as the potential risk reduction of fracture during this time would be minimal anyways. Start alendronate 70mg weekly. Provided information on appropriate self administration Check labs today including Ca, albumin, Phos, mag, Chem6, PTH, Vit D (25 and 1-25), P1NP, C-telopeptide, bsALP, 24hr urine calcium Check spine x-rays to assess for occult vertebral fracture given her height loss Discussed adequate calcium intake between diet and supplementation with goal 1200mg daily Will determine appropriate Vit D dosing based on lab results.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 Service: ? Author Type: Nurse Practitioner Type: Progress Notes Filed: 12/03/2021 10:27 AM Note Text: VIRTUAL VISIT PROGRESS NOTE This is a virtual visit using [employer] video visit. It required patient-provider interaction for the medical decision making as documented below. Elisa Cruz is a 66 year old female seen for COVID concerns. 2nd person in her home to get COVID this week. Partner is responding well to Paxlovid and is hoping she will qualify for it as well. Patient has a hx of PEs. She is worried about this virus affecting her lungs or causing additional PEs. Positive home COVID test this morning. COVID 19 AG-Flow flex. Sx-thick in head, flushed sore throat, head is achy Has been utilizing supportive care. HISTORY REVIEWED (electronic chart updated): PAST MEDICAL HISTORY Diagnosis Date - Acute pulmonary embolism without acute cor pulmonale (HCC) 05/08/2018 - Allergic rhinitis due to other allergen - Deep venous thrombosis (DVT) of left peroneal vein (HCC) 05/04/2018 treated with aspirin - History of melanoma in situ 08/15/2015 - Melanoma in situ (HCC) 2013,2015 - Recurrent UTI - Unspecified otitis media PAST SURGICAL HISTORY Procedure Laterality Date - BIOPSY BREAST OPEN INCISIONAL Left 06/2015 Bx of breast, incisional - DELIVERY ONLY , low cervical x 4 - COLONOSCOPY FLX DX W/COLLJ SPEC WHEN PFRMD 07/03/12 Colonoscopy - ESOPHAGOGASTRODUODENOSCOPY TRANSORAL DIAGNOSTIC 07/03/12 EGD - EXC CYST/ABERRANT BREAST TISSUE OPEN LESION 1993 Bilat.--Benign - PAST SURGICAL HISTORY OF nasal surgery - PAST SURGICAL HISTORY OF Vocal cord surgery FAMILY HISTORY Problem Relation Age of Onset - None Mother - other (Other) Mother below knee thrombophlebitis. - None Father - other (Bladder Lesion) Father - Breast Cancer Other paternal great grandmother - Heart Maternal Grandmother - Heart Maternal Grandfather - Cancer Paternal Grandmother Lymphoma - Heart Paternal Grandfather - No Family History No Family History Lung disease. Social History Tobacco Use - Smoking status: Never Smoker - Smokeless tobacco: Never Used - Tobacco comment: is exposed to second hand smoke Substance Use Topics - Alcohol use: Yes Comment: wine with dinner - Drug use: No Current Outpatient Medications Medication Sig - traZODone (DESYREL) 50 mg tablet Take 1 tablet by mouth daily at bedtime. - LORazepam (ATIVAN) 0.5 mg Take 1 tablet by mouth daily at bedtime for 180 days. - methenam/sod phos/mblue/hyoscy (UROGESIC-BLUE ORAL) Take 1 tablet by mouth twice daily. - methen/mblue/yamile/sod phos/hyos (QVSCYL-FLQYL-J.ZYHY-CUU-QDGNKL ORAL) Take by mouth. - Cholecalciferol, Vitamin D3, 3,000 unit tab Take by mouth. - BIOTIN ORAL Take 5,000 mcg by mouth once daily. - LORATADINE (CLARITIN ORAL) Take by mouth as needed. - MULTIVITAMIN ORAL Take 1 tablet by mouth once daily. No current facility-administered medications for this visit. ALLERGIES Allergen Reactions - Morphine Itching REVIEW OF SYSTEMS: All other ROS: negative As noted in HPI PHYSICAL EXAMINATION: VIDEO EXAM: (if completed, performed via video enabled technology) GENERAL: alert and appropriate, in no distress, well-hydrated, well nourished, happy, smiling, interactive, appears tired and coughs occasionally ASSESSMENT: No diagnosis found. PLAN: Begin Paxlovid. Instruction papers sent to patient. Discussed possible adverse effects of medications. Continue with supportive care. Olive Dejesus APRN.YURY Nirmatrelvir/Ritonavir (Paxlovid) Eligibility and Patient Discussion [facility] Formulary Restriction Criteria: Adult outpatients 18 years and older with ALL of the following: [x] Patient has positive SARS-COV-2 viral test (PCR or antigen test) during current illness [x] Patient has symptoms for 5 days or less [x] Not requiring hospitalization at any time for management of COVID-19 [x] Not requiring supplemental oxygen or a change in baseline supplemental oxygen[x] Not utilized for pre-exposure or post-exposure prophylaxis for prevention of COVID-19 [x] Patient does not have severe renal impairment (eGFR < 30 mL/min) or severe hepatic impairment (Child-Vergara Class C) [x] Meeting at least one of the criteria for high risk of progression to severe COVID-19: [x] Age over 65 years [] Cancer [] Chronic kidney disease [] Chronic liver disease [] Chronic lung diseases, including cystic fibrosis [] Dementia or other neurological conditions [] Diabetes (type 1 or type 2) [] Disabilities, including Down syndrome and neurodevelopmental disorders [] Heart conditions [] HIV infection [] Immunocompromised state [] Mental health conditions [] Medical related technological dependence (tracheostomy, gastrostomy, or positive pressure ventilation (not related to COVID) [] Over (more content not included)... [facility] 12-02-2021 Instructions Olive Dejessu APRN.YURY - 12/02/2021 3:50 PM EDT FACT SHEET FOR PATIENTS, PARENTS, AND CAREGIVERS EMERGENCY USE AUTHORIZATION (EUA) OF PAXLOVID FOR CORONAVIRUS DISEASE 2019 (COVID-19) You are being given this Fact Sheet because your healthcare provider believes it is necessary to provide you with PAXLOVID for the treatment of bnxa-or-xhyhcxer coronavirus disease (COVID-19) caused by the SARS-CoV-2 virus. This Fact Sheet contains information to help you understand the risks and benefits of taking the PAXLOVID you have received or may receive. The [place].S. Food and Drug Administration (FDA) has issued an Emergency Use Authorization (EUA) to make PAXLOVID available during the COVID-19 pandemic (for more details about an EUA please see What is an Emergency Use Authorization? at the end of this document). PAXLOVID is not an FDA-approved medicine in the [place]. Read this Fact Sheet for information about PAXLOVID. Talk to your healthcare provider about your options or if you have any questions. It is your choice to take PAXLOVID. What is COVID-19? COVID-19 is caused by a virus called a coronavirus. You can get COVID-19 through close contact with another person who has the virus. COVID-19 illnesses have ranged from very upqd-sc-iylbwz, including illness resulting in . While information so far suggests that most COVID-19 illness is mild, serious illness can happen and may cause some of your other medical conditions to become worse. Older people and people of all ages with severe, long lasting (chronic) medical conditions like heart disease, lung disease, and diabetes, for example seem to be at higher risk of being hospitalized for COVID-19. What is PAXLOVID? PAXLOVID is an investigational medicine used to treat hudg-xj-nwtcienc COVID-19 in adults and children [12 years of age and older weighing at least 88 pounds (40 kg)] with positive results of direct SARS-CoV-2 viral testing, and who are at high risk for progression to severe COVID-19, including hospitalization or . PAXLOVID is investigational because it is still being studied. There is limited information about the safety and effectiveness of using PAXLOVID to treat people with nwhy-qi-vvokkmhd COVID-19. The FDA has authorized the emergency use of PAXLOVID for the treatment of efal-el-qvzdfrny COVID-19 in adults and children [12 years of age and older weighing at least 88 pounds (40 kg)] with a positive test for the virus that causes COVID-19, and who are at high risk for progression to severe COVID-19, including hospitalization or , under an EUA. 1 Revised: 24 July 2021 What should I tell my healthcare provider before I take PAXLOVID? Tell your healthcare provider if you: Have any allergies Have liver or kidney disease Are or plan to become Are a child Have any serious illnesses Tell your healthcare provider about all the medicines you take, including prescription and hzmo-del-dlynmxn medicines, vitamins, and herbal supplements. Some medicines may interact with PAXLOVID and may cause serious side effects. Keep a list of your medicines to show your healthcare provider and pharmacist when you get a new medicine. You can ask your healthcare provider or pharmacist for a list of medicines that interact with PAXLOVID. Do not start taking a new medicine without telling your healthcare provider. Your healthcare provider can tell you if it is safe to take PAXLOVID with other medicines. Tell your healthcare provider if you are taking combined hormonal contraceptive. PAXLOVID may affect how your control pills work. Females who are able to become should use another effective alternative form of contraception or an additional barrier method of contraception. Talk to your healthcare provider if you have any questions about contraceptive methods that might be right for you. How do I take PAXLOVID? PAXLOVID consists of 2 medicines: nirmatrelvir and ritonavir. Take 2 pink tablets of nirmatrelvir with 1 white tablet of ritonavir by mouth 2 times each day (in the morning and in the evening) for 5 days. For each dose, take all 3 tablets at the same time. If you have kidney disease, talk to your healthcare provider. You may need a different dose. Swallow the tablets whole. Do not chew, break, or crush the tablets. Take PAXLOVID with or without food. Do not stop taking PAXLOVID without talking to your healthcare provider, even if you feel better. If you miss a dose of PAXLOVID within 8 hours of the time it is usually taken, take it as soon as you remember. If you miss a dose by more than 8 hours, skip the missed dose and take the next dose at your regular time. Do not take 2 doses of PAXLOVID at the same time. If you take too much PAXLOVID, call your healthcare provider or go to the nearest hospital emergency room right away. If you are taking a ritonavir-or cobicistat-containing medicine to treat hepatitis C or Human Immunodeficiency Virus (HIV), you should continue to take your medicine as prescribed by your healthcare provider. Talk to your healthcare provider if you do not feel better or if you feel worse after 5 days. Who should generally not take PAXLOVID? Do not take PAXLOVID if: You are allergic to nirmatrelvir, ritonavir, or any of the ingredients in PAXLOVID You are taking any of the following medicines: Alfuzosin Pethidine, propoxyphene Ranolazine Amiodarone, dronedarone, flecainide, propafenone, quinidine Colchicine Lurasidone, pimozide, clozapine Dihydroergotamine, ergotamine, methylergonovine Lovastatin, simvastatin Sildenafil (Revatio ) for pulmonary arterial hypertension (PAH) Triazolam, oral midazolam Apalutamide Carbamazepine, phenobarbital, phenytoin Rifampin Julienne s Wort (hypericum perforatum) Taking PAXLOVID with these medicines may cause serious or life-threatening side effects or affect how PAXLOVID works. These are not the only medicines that may cause serious side effects if taken with PAXLOVID. PAXLOVID may increase or decrease the levels of multiple other medicines. It is very important to tell your healthcare provider about all of the medicines you are taking because additional laboratory tests or changes in the dose of your other medicines may be necessary while you are taking PAXLOVID. Your healthcare provider may also tell you about specific symptoms to watch out for that may indicate that you need to stop or decrease the dose of some of your other medicines. What are the important possible side effects of PAXLOVID? Possible side effects of PAXLOVID are: Allergic Reactions. Allergic reactions can happen in people taking PAXLOVID, even after only 1 dose. Stop taking PAXLOVID and call your healthcare provider right away if you get any of the following symptoms of an allergic reaction: hives trouble swallowing or breathing swelling of the mouth, lips, or face throat tightness hoarseness skin rash Liver Problems. Tell your healthcare provider right away if you have any of these signs and symptoms of liver problems: loss of appetite, yellowing of your skin and the whites of eyes (jaundice), dark-colored urine, pale colored stools and itchy skin, stomach area (abdominal) pain. Resistance to HIV Medicines. If you have untreated HIV infection, PAXLOVID may lead to some HIV medicines not working as well in the future. Other possible side effects include: altered sense of taste diarrhea high blood pressure muscle aches These are not all the possible side effects of PAXLOVID. Not many people have taken PAXLOVID. Serious and unexpected side effects may happen. PAXLOVID is still being studied, so it is possible that all of the risks are not known at this time. What other treatment choices are there? Veklury (remdesivir) is FDA-approved for the treatment of nrkr-ya-vgvokdkj COVID-19 in certain adults and children. Talk with your doctor to see if Veklury is appropriate for you. Like PAXLOVID, FDA may also allow for the emergency use of other medicines to treat people with COVID-19. Go to https://www.fda.gov/emergency-prepared sherris-natividad/biy-vxkmw-yickjptbqq- umj-tylvfo-fpvrblofd/dzitmcfkz-myx-jyp horization for information on the emergency use of other medicines that are authorized by FDA to treat people with COVID-19. Your healthcare provider may talk with you about clinical trials for which you may be eligible. It is your choice to be treated or not to be treated with PAXLOVID. Should you decide not to receive it or for your child not to receive it, it will not change your standard medical care. What if I am or ? There is ct scan special procedures technologist treating women or mothers with PAXLOVID. For a mother and unborn baby, the benefit of taking PAXLOVID may be greater than the risk from the treatment. If you are , discuss your options and specific situation with your healthcare provider. It is recommended that you use effective barrier contraception or do not have sexual activity while taking PAXLOVID. If you are , discuss your options and specific situation with your healthcare provider. How do I report side effects with PAXLOVID? Contact your healthcare provider if you have any side effects that bother you or do not go away. Report side effects to FDA MedWatch at www.fda.gov/medwatch or call 9-411-OTT2596 or you can report side effects to [employer]. at the contact information provided below. Website Fax number Telephone number [employer] How should I store PAXLOVID? Store PAXLOVID tablets at room temperature, between 68?F to 77?F (20?C to 25?C). How can I learn more about COVID-19? Ask your healthcare provider. Visit https://www.cdc.gov/COVID19. Contact your local or state public health department. What is an Emergency Use Authorization (EUA)? The [place] FDA has made PAXLOVID available under an emergency access mechanism called an Emergency Use Authorization (EUA). The EUA is supported by a Beef Pluck Trimmer of Health and Human Service (HHS) declaration that circumstances exist to justify the emergency use of drugs and biological products during the COVID-19 pandemic. PAXLOVID for the treatment of gxfb-ge-wtlgavxx COVID-19 in adults and children [12 years of age and older weighing at least 88 pounds (40 kg)] with positive results of direct SARS-CoV-2 viral testing, and who are at high risk for progression to severe COVID-19, including hospitalization or , has not undergone the same type of review as an FDA-approved product. In issuing an EUA under the COVID-19 public health emergency, the FDA has determined, among other things, that based on the total amount of scientific evidence available including data from adequate and well-controlled clinical trials, if available, it is reasonable to believe that the product may be effective for diagnosing, treating, or preventing COVID-19, or a serious or life-threatening disease or condition caused by COVID-19; that the known and potential benefits of the product, when used to diagnose, treat, or prevent such disease or condition, outweigh the known and potential risks of such product; and that there are no adequate, approved, and available alternatives. All of these criteria must be met to allow for the product to be used in the treatment of patients during the COVID-19 pandemic. The EUA for PAXLOVID is in effect for the duration of the COVID-19 declaration justifying emergency use of this product, unless terminated or revoked (after which the products may no longer be used under the EUA). Additional Information For general questions, visit the website or call the telephone number provided below. Website Telephone number [employer] (7-052-F91-XAVG) You can also go to www.[employer] or call for more information. Pfizer Distributed by [employer] [place] [address] [id number] Revised: 24 July 2021 documented in this encounter [facility] 12-02-2021 History of Present illness Narrative VIRTUAL VISIT PROGRESS NOTE This is a virtual visit using [employer] video visit. It required patient-provider interaction for the medical decision making as documented below. Elisa Cruz is a 66 year old female seen for COVID concerns. 2nd person in her home to get COVID this week. Partner is responding well to Paxlovid and is hoping she will qualify for it as well. Patient has a hx of PEs. She is worried about this virus affecting her lungs or causing additional PEs. Positive home COVID test this morning. COVID 19 AG-Flow flex. Sx-thick in head, flushed sore throat, head is achy Has been utilizing supportive care. HISTORY REVIEWED (electronic chart updated): PAST MEDICAL HISTORY Diagnosis Date Acute pulmonary embolism without acute cor pulmonale (HCC) 05/08/2018 Allergic rhinitis due to other allergen Deep venous thrombosis (DVT) of left peroneal vein (HCC) 05/04/2018 treated with aspirin History of melanoma in situ 08/15/2015 Melanoma in situ (HCC) 2013,2016 Recurrent UTI Unspecified otitis media PAST SURGICAL HISTORY Procedure Laterality Date BIOPSY BREAST OPEN INCISIONAL Left 06/2015 Bx of breast, incisional DELIVERY ONLY , low cervical x 4 COLONOSCOPY FLX DX W/COLLJ SPEC WHEN PFRMD 07/03/12 Colonoscopy ESOPHAGOGASTRODUODENOSCOPY TRANSORAL DIAGNOSTIC 07/03/12 EGD EXC CYST/ABERRANT BREAST TISSUE OPEN LESION 1993 Bilat.--Benign PAST SURGICAL HISTORY OF nasal surgery PAST SURGICAL HISTORY OF Vocal cord surgery FAMILY HISTORY Problem Relation Age of Onset None Mother other (Other) Mother below knee thrombophlebitis. None Father other (Bladder Lesion) Father Breast Cancer Other paternal great grandmother Heart Maternal Grandmother Heart Maternal Grandfather Cancer Paternal Grandmother Lymphoma Heart Paternal Grandfather No Family History No Family History Lung disease. Social History Tobacco Use Smoking status: Never Smoker Smokeless tobacco: Never Used Tobacco comment: is exposed to second hand smoke Substance Use Topics Alcohol use: Yes Comment: wine with dinner Drug use: No Current Outpatient Medications Medication Sig traZODone (DESYREL) 50 mg tablet Take 1 tablet by mouth daily at bedtime. LORazepam (ATIVAN) 0.5 mg Take 1 tablet by mouth daily at bedtime for 180 days. methenam/sod phos/mblue/hyoscy (UROGESIC-BLUE ORAL) Take 1 tablet by mouth twice daily. methen/mblue/yamile/sod phos/hyos (DTPEIP-IWBLN-X.IIDZ-LYF-WFTIGE ORAL) Take by mouth. Cholecalciferol, Vitamin D3, 3,000 unit tab Take by mouth. BIOTIN ORAL Take 5,000 mcg by mouth once daily. LORATADINE (CLARITIN ORAL) Take by mouth as needed. MULTIVITAMIN ORAL Take 1 tablet by mouth once daily. No current facility-administered medications for this visit. ALLERGIES Allergen Reactions Morphine Itching REVIEW OF SYSTEMS: All other ROS: negative As noted in HPI PHYSICAL EXAMINATION: VIDEO EXAM: (if completed, performed via video enabled technology) GENERAL: alert and appropriate, in no distress, well-hydrated, well nourished, happy, smiling, interactive, appears tired and coughs occasionally ASSESSMENT: No diagnosis found. PLAN: Begin Paxlovid. Instruction papers sent to patient. Discussed possible adverse effects of medications. Continue with supportive care. Olive Dejesus APRN.YURY Nirmatrelvir/Ritonavir (Paxlovid) Eligibility and Patient Discussion [facility] Formulary Restriction Criteria: Adult outpatients 18 years and older with ALL of the following: [x] Patient has positive SARS-COV-2 viral test (PCR or antigen test) during current illness [x] Patient has symptoms for 5 days or less [x] Not requiring hospitalization at any time for management of COVID-19 [x] Not requiring supplemental oxygen or a change in baseline supplemental oxygen[x] Not utilized for pre-exposure or post-exposure prophylaxis for prevention of COVID-19 [x] Patient does not have severe renal impairment (eGFR < 30 mL/min) or severe hepatic impairment (Child-Vergara Class C) [x] Meeting at least one of the criteria for high risk of progression to severe COVID-19: [x] Age over 65 years [] Cancer [] Chronic kidney disease [] Chronic liver disease [] Chronic lung diseases, including cystic fibrosis [] Dementia or other neurological conditions [] Diabetes (type 1 or type 2) [] Disabilities, including Down syndrome and neurodevelopmental disorders [] Heart conditions [] HIV infection [] Immunocompromised state [] Mental health conditions [] Medical related technological dependence (tracheostomy, gastrostomy, or positive pressure ventilation (not related to COVID) [] Overweight and obesity (BMI greater or equal to 25 for adults) [] Physical inactivity [] [] Sickle cell disease or thalassemia [] Smoking, current or former [] Solid organ or blood stem cell transplant [] Stroke or cerebrovascular disease [] Substance use disorders [] Tuberculosis [] People from racial and ethnic minority groups Criteria above are met: Yes Date of Positive Test:12/02/2021 Date of Symptom Onset: 12/01/2021 Patient received COVID vaccine: Yes Drug-Drug interactions reviewed: Yes. No drug interactions were identified. I have discussed the use of the investigational therapeutic, nirmatrelvir/ritonavir, for the treatment of mild to moderate COVID-19 and its use under Emergency Use Authorization with the patient. The patient was informed that nirmatrelvir/ritonavir is not an FDA approved drug and that it is authorized for use under this Emergency Use Authorization. The patient was also informed of the significant known benefits and potential risks of nirmatrelvir/ritonavir, and the extent to which such potential risks and benefits are unknown. The patient was informed that there is mandatory reporting of all medication errors and serious adverse events potentially related to nirmatrelvir/ritonavir treatment within 7 calendar days from the onset of the event and that events up to 28 days after completion of therapy need to be reported. The discussion included alternatives to receiving nirmatrelvir/ritonavir, including clinical trials, and potential the risks and benefits of those alternatives. The patient was provided electronically with the Fact Sheet for Patients, Parents and Caregivers. The patient was also instructed that in addition to the treatment with nirmatrelvir/ritonavir, he/she should continue to self-isolate and use infection control measures (e.g., wear mask, isolate, social distance, avoid sharing personal items, clean and disinfect high touch surfaces, and frequent handwashing) according to CDC guidelines. The patient stated understanding and gave verbal consent to proceeding with nirmatrelvir/ritonavir treatment. Olive Dejesus APRN.CNP December 02, 2021 3:46 PM documented in this encounter [facility] 06-04-2021 Note HNO ID: [id number] Author: Adrián Ramirez APRN.CUT ROLL MACHINE OPERATOR Service: ? Author Type: Nurse Specialist Type: Progress Notes Filed: 06/04/2021 11:40 AM Note Text: Video visit. In home. Consents to visit. Patient only. SUBJECTIVE: DEPRESSION SCREENING due on 10/20/2018 HPI Elisa Cruz is a 65 year old female. 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 Notes doing lots of video visits currently. [facility] does not currently want to establish with a doctor here, plans to be moving to [place] this summer. History of anxiety, insomnia. Taking one half tablet nightly Taking lorazepam 0.5 mg at bedtime nightly. Works well. No adverse effects noted. Interested in possibly switching to trazodone. PDMP website checked and validated. All prescriptions have been APPROPRIATELY filled. No suspicious activity was identified. 06/04/2021 by Adrián Ramirez APRN.CUT ROLL MACHINE OPERATOR Last filled 04/30/2021. Review of Systems Constitutional: Negative. Objective Physical Exam HENT: Head: Normocephalic. Eyes: Conjunctiva/sclera: Conjunctivae normal. Pulmonary: Effort: Pulmonary effort is normal. Neurological: General: No focal deficit present. Mental Status: She is alert and oriented to person, place, and time. Psychiatric: Mood and Affect: Mood normal. Behavior: Behavior normal. Thought Content: Thought content normal. ALLERGIES Allergen Reactions - Morphine Itching LORazepam (ATIVAN) 1 mg tablet TAKE 1/2 TABLET BY MOUTH EVERY DAY NEEDED FOR ANXIETY methenam/sod phos/mblue/hyoscy (UROGESIC-BLUE ORAL) Take 1 tablet by mouth twice daily. methen/mblue/yamile/sod phos/hyos (OCLZTH-MZOJB-Z.QXKS-GKQ-MBRLNW ORAL) Take by mouth. pantoprazole DR (PROTONIX) 40 mg tablet Take 40 mg by mouth once daily. Cranberry Extract (ELLURA) 200 mg cap Take 36 mg by mouth once daily. Cholecalciferol, Vitamin D3, 3,000 unit tab Take by mouth. BIOTIN ORAL Take 5,000 mcg by mouth once daily. LORATADINE (CLARITIN ORAL) Take by mouth as needed. ASPEN PRIMROSE/LINOLEIC/GAMOLENI (PRIMROSE OIL ORAL) Take 1,300 mg by mouth once daily. MULTIVITAMIN ORAL Take 1 tablet by mouth once daily. PAST MEDICAL HISTORY Diagnosis Date - Acute pulmonary embolism without acute cor pulmonale ([facility]) 05/08/2018 - Allergic rhinitis due to other allergen - Deep venous thrombosis (DVT) of left peroneal vein ([facility]) 05/04/2018 treated with aspirin - History of melanoma in situ 08/15/2015 - Melanoma in situ ([facility]) 2013,2015 - Recurrent UTI - Unspecified otitis media Social History Tobacco Use - Smoking status: Never Smoker - Smokeless tobacco: Never Used - Tobacco comment: is exposed to second hand smoke Substance Use Topics - Alcohol use: Yes Comment: wine with dinner - Drug use: No Component Latest Ref Rng AND Units 12/19/2020 05/29/2021 WBC 3.70 - 11.00 k/uL 5.47 RBC 3.90 - 5.20 m/uL 4.37 Hemoglobin 11.5 - 15.5 g/dL 13.6 Hematocrit 36.0 - 46.0 % 41.1 MCV 80.0 - 100.0 fL 94.1 MCH 26.0 - 34.0 pG 31.1 MCHC 30.5 - 36.0 g/dL 33.1 RDW-CV 11.5 - 15.0 % 12.5 Platelet Count 150 - 400 k/uL 218 MPV 9.0 - 12.7 fL 10.3 Neut% % 58.3 Abs Neut (ANC) 1.45 - 7.50 k/uL 3.18 Lymph% % 30.0 Abs Lymph 1.00 - 4.00 k/uL 1.64 Dickey% % 7.5 Abs Dickey <0.87 k/uL 0.41 Eosin% % 3.3 Abs Eosin <0.46 k/uL 0.18 Baso% % 0.9 Abs Baso <0.11 k/uL 0.05 Nucleated Reds 0 /100 WBC 0.0 Absolute nRBC <0.01 k/uL <0.01 Diff Type Auto Diff Protein, Total 6.3 - 8.0 g/dL 6.1 (L) Albumin 3.9 - 4.9 g/dL 4.0 Calcium 8.5 - 10.2 mg/dL 9.3 Bilirubin, Total 0.2 - 1.3 mg/dL 0.3 Alkaline Phosphatase 34 - 123 U/L 73 AST 13 - 35 U/L 16 Glucose 74 - 99 mg/dL 90 BUN 7 - 21 mg/dL 10 Creatinine 0.58 - 0.96 mg/dL 0.81 Sodium 136 - 144 mmol/L 139 Potassium 3.7 - 5.1 mmol/L 4.2 Chloride 97 - 105 mmol/L 102 CO2 22 - 30 mmol/L 24 Anion Gap 9 - 18 mmol/L 13 ALT 7 - 38 U/L 11 eGFR- >60 eGFR-All Other Races . >60 Phencyclidine Negative Negative Benzodiazepines Urine Negative Negative Cocaine Urine Negative Negative Amphetamines Negative Negative Cannabinoids, Urine Negative Negative Opiates Negative Negative Barbiturates Negative Negative Ethanol, Urine <11 mg/dL <11 Oxycodone, Urine Negative Negative Magnesium 1.7 - 2.3 mg/dL 1.9 ASSESSMENT/PLAN: 1. Generalized anxiety disorder - ICD9: 300.02, ICD (more content not included)... [facility] 02-14-2020 History of Present illness Narrative Radiology Service Progress Note PATIENT NAME: Elisa Cruz DATE OF SERVICE: February 14, 2020 TIME: 11:35 AM PATIENT IDENTITY VERIFICATION COMPLETED USING TWO (2) IDENTIFIERS: Name and Date of confirmed by patient verbally. FALL SCREENING: Has the patient had 2 falls in the last year or 1 fall with injury or currently using an Ambulatory Assistive Device (Walker, Cane, Wheelchair, Crutches, etc.)? No PATIENT GENDER DATA: Female. status: : No status: NO. PATIENT RELEVANT IMPLANT DATA REVIEWED: Yes RADIOLOGY DEPARTMENT: General X-ray: Exam(s) Completed: Rib X-Ray: Right PERIPHERAL IV DATA: Not applicable SIGNED BY: RT Randell February 14, 2020 11:35 AM documented in this encounter [facility] 02-14-2020 Miscellaneous Notes Rajeev Pérez--there is no evidence of rib fracture. Jagruti Skinner III MD documented in this encounter [facility] 02-14-2020 Progress note Formatting of t his note might be different from the original. Rajeev Pérez--there is no evidence of rib fracture. Jagruti Skinner III MD [facility] Evaluation note Diagnosis COVID-19- Primary [facility] Diagnosis Onset Date Resolution Status Vaginal atrophy acute Encounter for routine gynecological examination noneactive [facility] Work Phone: Evaluation note* Diagnosis Pain in neck [facility]ervicalgia [facility] Pain in neck- Primary Cervicalgia Family history of multiple myeloma Family history of other lymphatic and hematopoietic neoplasms Polyp of ascending colon, unspecified type Malignant melanoma, unspecified site Preventative health care Routine general medical examination at a health care facility Estrogen deficiency Other ovarian failure Lipid screening Screening for lipoid disorders Brittle nails Other specified disease of nail Bruising Contusion of unspecified site Pain in neck Cervicalgia [facility] Pain in neck- Primary Cervicalgia Facet arthropathy, cervical Cervical spondylosis without myelopathy Spondylosis of cervical joint without myelopathy Cervical spondylosis without myelopathy Degenerative disc disease, cervical Degeneration of cervical intervertebral disc [facility] Diagnosis Neck pain- Primary Cervicalgia Cervical cancer screening Screening for malignant neoplasm of the cervix documented in [facility] Diagnosis Estrogen deficiency Other ovarian failure [facility] Diagnosis Neck pain, chronic- Primary Cervicalgia Facet arthropathy, cervical Cervical spondylosis without myelopathy Spondylosis of cervical joint without myelopathy Cervical spondylosis without myelopathy Myofascial pain Mylagia and myositis, unspecified documented [facility] Diagnosis Neck pain, chronic Cervicalgia Facet arthropathy, cervical Cervical spondylosis without myelopathy Spondylosis of cervical joint without myelopathy Cervical spondylosis without myelopathy documented in this [facility] Diagnosis Neck pain- Primary Cervicalgia Spondylosis of cervical joint without myelopathy Cervical spondylosis without myelopathy Degenerative disc disease, cervical Degeneration of cervical intervertebral disc Arthropathy of cervical facet joint Cervical spondylosis without myelopathy Myofascial pain Mylagia and myositis, unspecified documented [facility] Diagnosis Age related osteoporosis, unspecified pathological fracture presence documented [facility] this [facility] Diagnosis Age related osteoporosis, unspecified pathological fracture presence- Primary Height loss Loss of height Vitamin D deficiency Unspecified vitamin D deficiency Age related osteoporosis, unspecified pathological fracture presence documented [facility] Diagnosis Neck pain- Primary Cervicalgia Spondylosis of cervical joint without myelopathy Cervical spondylosis without myelopathy documented [facility] Diagnosis Onset Date Resolution Status History of DVT (deep vein thrombosis) acute Osteoporosis acute Vaginal atrophy acute Encounter for routine gynecological examination noneactive [facility] Work Phone: Evaluation note* Diagnosis Age-related osteoporosis without current pathological fracture- Primary Senile osteoporosis Gastroesophageal reflux disease without esophagitis Esophageal reflux Intermittent right upper quadrant abdominal pain documented [facility] this [facility] Diagnosis Annual physical exam- Primary Routine general medical examination at a health care facility Establishing care with new doctor, encounter for Screening, iron deficiency anemia Screening for iron deficiency anemia Encounter for vitamin deficiency screening Screening for other and unspecified endocrine, nutritional, metabolic, and immunity disorders Screening for thyroid disorder Screening for cardiovascular condition Screening for other and unspecified cardiovascular conditions Medication management Encounter for other specified aftercare Screening for diabetes mellitus Age-related osteoporosis without current pathological fracture Senile osteoporosis Need for hepatitis C screening test Special screening examination for other specified viral diseases Incidental lung nodule, > 3mm and < 8mm Solitary pulmonary nodule Hematuria, unspecified type Vitamin D deficiency Unspecified vitamin D deficiency Intermittent right upper quadrant abdominal pain Generalized anxiety disorder Need for prophylactic vaccination against Streptococcus pneumoniae (pneumococcus) Need for prophylactic vaccination against streptococcus pneumoniae (pneumococcus) History of melanoma Personal history of malignant melanoma of skin Screening for malignant neoplasm of colon Encounter for screening mammogram for malignant neoplasm of breast Other screening mammogram Melanoma in situ of lower extremity, including hip, unspecified laterality Primary osteoarthritis of both hands Neck pain on left side Cervicalgia documented in this [facility] Diagnosis Age-related osteoporosis without current pathological fracture- Primary Senile osteoporosis Gastroesophageal reflux disease without esophagitis Esophageal reflux Intermittent right upper quadrant abdominal pain Facial rash- Primary Laryngopharyngeal reflux (LPR) Other diseases of larynx Joint stiffness Stiffness of joint, not elsewhere classified, unspecified site Pain in toes of both feet Gastroesophageal reflux disease without esophagitis Esophageal reflux Osteoarthritis of cervical spine, unspecified spinal osteoarthritis complication status [facility] Diagnosis Other chest pain [facility] Diagnosis Age-related osteoporosis without current pathological fracture- Primary Senile osteoporosis Gastroesophageal reflux disease without esophagitis Esophageal reflux Intermittent right upper quadrant abdominal pain Age related osteoporosis, unspecified pathological fracture presence- Primary documented [facility] Diagnosis Age-related osteoporosis without current pathological fracture- Primary Senile osteoporosis Gastroesophageal reflux disease without esophagitis Esophageal reflux Intermittent right upper quadrant abdominal pain Sprain of lateral collateral ligament of left knee, initial encounter- Primary documented in this [facility] Diagnosis Age-related osteoporosis without current pathological fracture- Primary Senile osteoporosis Gastroesophageal reflux disease without esophagitis Esophageal reflux Intermittent right upper quadrant abdominal pain Age related osteoporosis, unspecified pathological fracture presence [facility] Diagnosis Age-related osteoporosis without current pathological fracture- Primary Senile osteoporosis Gastroesophageal reflux disease without esophagitis Esophageal reflux Intermittent right upper quadrant abdominal pain Right knee pain, unspecified chronicity- Primary Primary osteoarthritis of right knee Primary localized osteoarthrosis, lower leg Right knee pain, unspecified chronicity documented in this [facility] Diagnosis Age-related osteoporosis without current pathological fracture- Primary Senile osteoporosis Gastroesophageal reflux disease without esophagitis Esophageal reflux Intermittent right upper quadrant abdominal pain Right knee pain, unspecified chronicity documented in this [facility] Diagnosis Age-related osteoporosis without current pathological fracture- Primary Senile osteoporosis Gastroesophageal reflux disease without esophagitis Esophageal reflux Intermittent right upper quadrant abdominal pain Right knee pain, unspecified chronicity- Primary [facility]* Attachments The following attachments cannot be sent through Care Everywhere. * RICE: General Info (Honduran) * Knee Sprain (Honduran) [facility] (n[facility]ative)* Consultation (Routine) - New Request Specialty Diagnoses / Procedures Referred By Contac t Referred To Contact Integrative Medicine Diagnoses Neck pain Becki Garcia MD [address] [place] [address] Referral ID Status Reason Start Date Expiration Date V isits Requested Visits Authorized [id number] New Request 07/27/2022 08/21/2023 [address] [facility] for referral (narrative)* Consultation (Routine) - New Request Specialty Diagnoses / Procedures Referred By Contac t Referred To Contact Integrative Medicine Diagnoses Neck pain Spondylosis of cervical joint without myelopathy Sukh Argueta MD [address] [facility] [place] [address] Referral ID Status Reason Start Date Expiration Date V isits Requested Visits Authorized [id number] New Request 02/22/2023 03/18/2024 [address] [facility] for referral (narrative)* Consultation (Routine) - New Request Specialty Diagnoses / Procedures Referred By Contac t Referred To Contact Dermatology Diagnoses History of melanoma Melanoma in situ of lower extremity, including hip, unspecified laterality Omar Saab MD [address] [facility] [address] [place] [address] Referral ID Status Reason Start Date Expiration Date V isits Requested Visits Authorized [id number] New Request 10/14/2023 11/07/2024 [address] [facility] for referral (narrative)* Consultation (Routine) - New Request Specialty Diagnoses / Procedures Referred By Contac t Referred To Contact Sports Ortho [facility] Primary [facility] Sports Diagnoses Sprain of lateral collateral ligament of left knee, initial encounter Tatiana Rae, CORE STRIPPER-BUSINESS CONTINUITY GLOBAL DIRECTOR [address] [place] [address] Referral ID Status Reason Start Date Expiration Date V isits Requested Visits Authorized [id number] New Request 05/19/2024 06/13/2025 1 1 Electronically signed by Tatiana Rae CORE STRIPPER-BUSINESS CONTINUITY GLOBAL DIRECTOR at 05/19/2024 12:03 PM EST [facility] for visit Narrative* Radiology (Routine) - Pending Review Specialty Diagnoses / Procedures Referred By Contac t Referred To Contact Diagnoses Age related osteoporosis, unspecified pathological fracture presence Procedures BONE DENSITY AXIAL (HIP, PELVIS, SPINE) Dima Alaniz, [address] [place] [address] Phone: tel: fax: Referral ID Status Reason Start Date Expiration Date V isits Requested Visits Authorized [id number] Pending Review 04/13/2024 05/08/2025 [address] [facility] for visit Narrative* Diagnostic X-Ray (Routine) - New Request Specialty Diagnoses / Procedures Referred By Contac t Referred To Contact Diagnoses Right knee pain, unspecified chronicity Procedures XR KNEE RIGHT 3+ VIEWS W/ BILATERAL STANDING 1 VIEW CHG RADIOLOGIC EXAM KNEE COMPLETE 4/MORE VIEWS En Dixon MD [address] [place] [address] [place] [address] Phone: tel: fax: Referral ID Status Reason Start Date Expiration Date V isits Requested Visits Authorized [id number] New Request 01/23/2025 02/17/2026 1 1 [facility] Summary Purpose Family History No Family History Records Found Relationship Condition Age at Onset Recorded Date/T davis father Cardiac disease Unknown Advance Directives No Advanced Directives Records Found Advance Directive Response Recorded Date/ Time Living Will Yes July 17, 2021 3:43pm Power of Fuselage Framer Yes July 17 3:43pm Advance Directive Response Recorded Date/ Time Living Will Yes July 17, 2021 2:43pm Power of Fuselage Framer Yes July 17 2:43pm Chief Complaint and Reason for Visit Chief Complaint 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) Reason for Visit Vaginal atrophy Encounter for routine gynecological examination Chief Complaint 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) Reason for Visit History of DVT (deep vein thrombosis) Osteoporosis Vaginal atrophy Encounter for routine gynecological examination Reason for Referral Specialty Diagnoses / Procedures Referred By Contac t Referred To Contact Diagnoses Polyp of ascending colon, unspecified type Procedures COLOGUARD Becki Garcia MD [address] [place] [address] Referral ID Status Reason Start Date Expiration Date V isits Requested Visits Authorized [id number] New Request 2022 07/19/2023 1 1 Specialty Diagnoses / Procedures Referred By Contac t Referred To Contact Diagnoses Estrogen deficiency Procedures BONE DENSITY AXIAL (HIP, PELVIS, SPINE) Becki Garcia MD [address] [place] [address] Referral ID Status Reason Start Date Expiration Date V isits Requested Visits Authorized [id number] New Request 06/22/2022 07/17/2023 1 1 Specialty Diagnoses / Procedures Referred By Contac t Referred To Contact Dermatology Diagnoses Malignant melanoma, unspecified site Becki aGrcia MD [address] [place] [address] Referral ID Status Reason Start Date Expiration Date V isits Requested Visits Authorized [id number] New Request 06/22/2022 07/17/2023 1 1 Specialty Diagnoses / Procedures Referred By Contac t Referred To Contact Integrative Medicine Diagnoses Pain in neck Becki Garcia MD [address] [place] [phone] Referral ID Status Reason Start Date Expiration Date V isits Requested Visits Authorized [id number] New Request 06/22/2022 07/17/2023 1 1 Specialty Diagnoses / Procedures Referred By Contac t Referred To Contact Physical Therapy Diagnoses Pain in neck Degenerative disc disease, cervical Spondylosis of cervical joint without myelopathy Sukh Argueta MD [address] [place] [address]. [place] [address] Referral ID Status Reason Start Date Expiration Date V isits Requested Visits Authorized [id number] New Request 07/23/2022 08/17/2023 1 1 Scheduling Instructions [facility] [address] [facility], 2nd [place] [address] Fax [facility]) [address] [place] [phone] FAX [facility] [address] [place] [address] FAX [facility]patient Rehabilitation Outpatient [facility] [address] [id number] FAX [facility] [address] [place] [address] FAX Physical Therapy at [address] [address] FAX [facility] [address] [place], [place] [address] FAX Continued on next page Outpatient Rehabilitation Outpatient Care [address] [place], [place] [id number] FAX [facility] [address] [place], [place] [id number] FAX Specialty Diagnoses / Procedures Referred By Contac t Referred To Contact Integrative Medicine Diagnoses Pain in neck Degenerative disc disease, cervical Spondylosis of cervical joint without myelopathy Sukh Argueta MD [address] [facility] [place] [address] Referral ID Status Reason Start Date Expiration Date V isits Requested Visits Authorized [id number] New Request 07/23/2022 08/17/2023 1 1 Specialty Diagnoses / Procedures Referred By Contac t Referred To Contact Diagnoses Neck pain, chronic Myofascial pain Sukh Argueta MD [address] [facility] [place] [address] Referral ID Status Reason Start Date Expiration Date V isits Requested Visits Authorized [id number] New Request 12/10/2022 01/04/2024 1 1 Scheduling Instructions With vt Specialty Diagnoses / Procedures Referred By Contac t Referred To Contact Diagnoses Neck pain, chronic Facet arthropathy, cervical Spondylosis of cervical joint without myelopathy Procedures MRI SPINE CERVICAL WITHOUT CONTRAST [place] MRI, CERV SPINE Sukh Argueta MD [address] [place] [address] Referral ID Status Reason Start Date Expiration Date V isits Requested Visits Authorized [id number] New Request 12/10/2022 01/04/2024 1 1 Specialty Diagnoses / Procedures Referred By Contac t Referred To Contact Diagnoses Age related osteoporosis, unspecified pathological fracture presence Procedures BONE DENSITY AXIAL (HIP, PELVIS, SPINE) Dima Alaniz, [address] [place] [address] Referral ID Status Reason Start Date Expiration Date V isits Requested Visits Authorized [id number] New Request 04/13/2024 05/08/2025 1 1 Additional Source Comments Source Comments (unrecognize d section and content) In the event this informatio n is protected by the Federal Confidentiality of Alcohol and Drug Abuse Patient Records regulations: The Federal rules restrict any use of the information to criminally investigate or prosecute any alcohol or drug abuse patient.[facility] the event this information is protected by the Federal Confidentiality of Alcohol and Drug Abuse Patient Records regulations: The Federal rules restrict any use of the information to criminally investigate or prosecute any alcohol or drug abuse patient.[facility] Reason for Visit (unrecogniz ed section and content) Reason Comments Covid19 Concern Reason Comments Establish Care Pt does have neck an d shoulder pain that radiates up her head, rotators cuff surgery 2 years ago. Pt would like to focus on her gut health. Pt has had a history of thinning hair since having her daughter, noticing her skin is bruising easily. 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 Diagnoses / Procedures Referred By Contac t Referred To Contact Diagnoses Estrogen deficiency Procedures BONE DENSITY AXIAL (HIP, PELVIS, SPINE) Becki Garcia MD [address] [place] [address] Referral ID Status Reason Start Date Expiration Date V isits Requested Visits Authorized [id number] New Request 06/22/2022 07/17/2023 1 1 Reason Comments Follow-up Specialty Diagnoses / Procedures Referred By Contac t Referred To Contact Spine Diagnoses Cervical disc herniation Becki Garcia MD [address] [place] [phone] Referral ID Status Reason Start Date Expiration Date V isits Requested Visits Authorized [id number] New Request 10/26/2022 11/20/2023 1 1 Specialty Diagnoses / Procedures Referred By Contac t Referred To Contact Diagnoses Neck pain, chronic Facet arthropathy, cervical Spondylosis of cervical joint without myelopathy Procedures MRI SPINE CERVICAL WITHOUT CONTRAST [place] MRI, CERV SPINE Sukh Argueta MD [address] [place] [address] Referral ID Status Reason Start Date Expiration Date V isits Requested Visits Authorized [id number] New Request 12/10/2022 01/04/2024 1 1 Reason Comments Follow-up Specialty Diagnoses / Procedures Referred By Contac t Referred To Contact Multispecialty Diagnoses Neck pain, chronic Myofascial pain Sukh Argueta MD [address] [place] [address] [facility] [address] [address] Referral ID Status Reason Start Date Expiration Date Visits Re quested Visits Authorized [id number] Closed 12/10/2022 01/04/2024 1 1 Reason Comments Osteoporosis New Patient Specialty Diagnoses / Procedures Referred By Contac t Referred To Contact Endocrinology, Diabetes & Metabolism Diagnoses Age related osteoporosis, unspecified pathological fracture presence Becki Garcia MD [address] [place] [address] Referral ID Status Reason Start Date Expiration Date V isits Requested Visits Authorized [id number] New Request 10/26/2022 11/20/2023 1 1 Reason Comments Follow-up Reason Comments Flank Pain Reason Comments Establish Care Annual Exam Reason Comments Joint Pain Reason Comments Osteoporosis Follow-up Reason Comments Leg Pain Pt arrives with c/o left leg; knee area. Reports some swelling to posterior knee Reason Comments Pain CC: she is a 69 y.o. female c/o R knee pain. Reports Swelling.Onset/LAURIE? Was moving a table when she tweaked her knee 3 weeks ago, then went on a trip where she was walking a lot.Hx: NonePain located medial knee.Described as sharp stabbing.Reports mechanical sx.N/T: DeniesAgg by going down stairs, standing up after sitting. Tx: naproxen, other pain relief medication, compression, salon pas patch Reason Comments Follow-up 6w f/u R knee. CSI: 01/23/25, states it lasted a little while. Will start PT in early May, was unable to start due to family emergency. Pain is worse at night. Would like to know what physical activity she is able to do. Medial knee pain. Txs: meloxicam at night. No new injuries to the area. Care Teams (unrecognized sec tion and content) Library Attendant Relationship Specialty Start Date End Date Pcp, No PCP - General 12/02/21 Library Attendant Relationship Specialty Start Date End Date Becki Garcia MD [address] [place] [address] PCP - General Family Medicine 06/22/22 Library Attendant Relationship Specialty Start Date End Date Becki Garcia MD [address] [place] [address] PCP - General Family Medicine 06/22/22 Library Attendant Relationship Specialty Start Date End Date Becki Garcia MD [address] [place] [address] PCP - General Family Medicine 06/22/22 Library Attendant Relationship Specialty Start Date End Date Becki Garcia MD [address] [place] [phone] PCP - General Family Medicine 06/22/22 Library Attendant Relationship Specialty Start Date End Date Becki Garcia MD [address] [place] [phone] PCP - General Family Medicine 06/22/22 Library Attendant Relationship Specialty Start Date End Date Becki Garcia MD [address] [place] [phone] PCP - General Family Medicine 06/22/22 Library Attendant Relationship Specialty Start Date End Date Bceki Garcia MD [address] [place] [phone] PCP - General Family Medicine 06/22/22 Library Attendant Relationship Specialty Start Date End Date Becki Garcia MD [address] [place] [phone] PCP - General Family Medicine 06/22/22 Library Attendant Relationship Specialty Start Date End Date Becki Garcia MD [address] [place] [phone] PCP - General Family Medicine 06/22/22 Library Attendant Relationship Specialty Start Date End Date Becki Garcia MD [address] [place] [phone] PCP - General Family Medicine 06/22/22 Team Status: Active Member Role Status Dates Dr. Jagruti Skinner III, MD Family Provider Active BECKI GARCIA Primary Care Provider Active Team Status: Inactive Member Role Status Dates Adrián Ramirez OYSTER PREPARER, OYSTER PREPARER-C Referring Provider Active Milagro Thomas OYSTER PREPARER, OYSTER PREPARER-C Attending Provider Active VIV CONNELL Primary Care Provider Active Team Status: Inactive Member Role Status Dates Dr. Namrata Huitron MD Attending Provider, Referr ing Provider Active VIV CONNELL Primary Care Provider Active Library Attendant Relationship Specialty Start Date End Date Becki Garcia MD [address] [place] [phone] PCP - General Family Medicine 06/22/22 07/23/23 Alfredo Butterfield MD, PhD [address] [facility] 2nd Floor [place] [phone] PCP - General Family Medicine 07/24/23 Library Attendant Relationship Specialty Start Date End Date Omar Saab MD [address] [place] [address] PCP - General Family Medicine 09/02/23 Library Attendant Relationship Specialty Start Date End Date Omar Saab MD [address] [place] [address] PCP - General Family Medicine 09/02/23 Library Attendant Relationship Specialty Start Date End Date Jagruti Skinner III, MD [employer]DRESS PCP - General 09/03/03 12/14/20 Library Attendant Relationship Specialty Start Date End Date Omar Saab MD [address] [place] [address] PCP - General Family Medicine 09/02/23 Library Attendant Relationship Specialty Start Date End Date Omar Saab MD [address] [place] [address] PCP - General Family Medicine 09/02/23 Library Attendant Relationship Specialty Start Date End Date Omar Saab MD [address] [place] [address] PCP - General Family Medicine 09/02/23 Library Attendant Relationship Specialty Start Date End Date Omar Saab MD PCP - General Family Medicine 09/02/23 Library Attendant Relationship Specialty Start Date End Date Omar Saab MD PCP - General Family Medicine 09/02/23 Library Attendant Relationship Specialty Start Date End Date Omar Saab MD PCP - General Family Medicine 09/02/23 INFORMATION SOURCE (unrecogn ized section and content) DATE CREATED AUTHOR 12/05/2021 [facility] DATE CREATED AUTHOR AUTHOR'S ORGANIZ ATION 04/19/2024 [facility] DATE CREATED AUTHOR AUTHOR'S ORGANIZ ATION 03/08/2025 [facility] Goals (unrecognized section and content) Goals may be documented in a n alternate sectionGoals may be documented in an alternate section FOR RECORDS PERTAINING TO PATIENTS WHO ARE OR HAVE BEEN ENROLLED IN A CHEMICAL DEPENDENCY/SUBSTANCEABUSE PROGRAM, SOME INFORMATION MAY BE OMITTED. This clinical summary was aggregated from multiple sources. Caution should be exercised in using it in the provision of clinical care. This summary normalizes information from multiple sources, and as a consequence, information in this document may materially change the coding, format and clinical context of patient data. In addition, data may be omitted in some cases. CLINICAL DECISIONS SHOULD BE BASED ON THE PRIMARY CLINICAL RECORDS. [facility] provides no warranty or guarantee of the accuracy or completeness of information in this document.
== END | disposition home or self-care (01) ==
PROVIDERS: PCP Family Medicine; Referring Provider Obstetrics & Gynecology; Visit Provider Obstetrics & Gynecology
DX: Z12.31 Encounter for screening mammogram for malignant neoplasm of breast (principal)
CPT/HCPCS: 77063; 77067